=== PATIENT | male | born 1945 | race Caucasian/White ===

== ENCOUNTER 2023-11-11 13:42 | Outpatient (OUT) | payer MEDICARE, SELFPAY ==
--- NOTE | 2023-11-11 14:01 | XR_ITS ---
The [address] [address] Patient Name: DOMINICK GARCIA MRN: [id number] date: 1945 Sex: M Assigned Patient Location: [facility] Current Patient Location: [facility] Accession/Order Number: [id number] Exam Date: 11/11/2023 14:46 Report Date: 11/14/2023 08:30 At the request of: ALBERT MO Procedure: XR chest 2V EXAM: XR chest 2V HISTORY: Preop exam COMPARISON: None. TECHNIQUE: 2 views. FINDINGS: No focal infiltrates are seen. No effusions are noted. XR/XR chest 2V IMPRESSION: No acute findings. No focal infiltrate. Electronically authenticated by: Bonilla LIM Date: 11/14/2023 08:30
--- NOTE | 2023-11-11 14:01 | ECG_ITS ---
The [facility] Test Date: 2023-11-11 Pat Name: DOMINICK GARCIA Department: Room: - Gender: Male [employer]: : 1945 Requested By: ALBERT MO Order Number: [id number] Reading MD: JONATHAN CARBONE Measurements Intervals [place] Rate: 86 P: LA: QRS: -9 QRSD: 99 T: 30 QT: 372 QTc: 446 Interpretive Statements ATRIAL FIBRILLATION ABNORMAL RHYTHM ECG Compared to ECG 06/02/2018 10:40:14 Sinus bradycardia no longer present Electronically Signed On 11-11-2023 18:36:46 EDT by JONATHAN CARBONE
--- NOTE | 2023-11-11 14:35 | PM.PRESUREVA ---
History of Present Illness History of Present Illness Chief complaint: blader tumor, hx of bladder cancer Narrative: Patient presents for preadmission testing. Please see HPI from Dr. Diaz dated October 25, 2023. Review of Systems ROS Narrative Please see ROS from Dr. Diaz dated October 25, 2023. [facility] Medical History (Updated 11/11/23 @ 14:33 by Meaghan Rios NP) Claustrophobia ?F40.240 - Claustrophobia (ICD-10) Extremity edema ?R60.0 - Localized edema (ICD-10) Atrial fibrillation ?I48.91 - Unspecified atrial fibrillation (ICD-10) Back pain ?M54.9 - Dorsalgia, unspecified (ICD-10) Hip pain ?M25.559 - Pain in unspecified hip (ICD-10) Weak urine stream ?R39.12 - Poor urinary stream (ICD-10) Urinary urgency ?R39.15 - Urgency of urination (ICD-10) Urethritis ?N34.2 - Other urethritis (ICD-10) Overactive bladder ?N32.81 - Overactive bladder (ICD-10) Nocturia ?R35.1 - Nocturia (ICD-10) Incomplete bladder emptying ?R33.9 - Retention of urine, unspecified (ICD-10) Bladder cancer ?C67.9 - Malignant neoplasm of bladder, unspecified (ICD-10) Frequent urination ?R35.0 - Frequency of micturition (ICD-10) BPH with obstruction/lower urinary tract symptoms ?N40.1 - Benign prostatic hyperplasia with lower urinary tract symptoms (ICD-10) ?N13.8 - Other obstructive and reflux uropathy (ICD-10) Hyperlipidemia ?E78.5 - Hyperlipidemia, unspecified (ICD-10) Hypothyroid ?E03.9 - Hypothyroidism, unspecified (ICD-10) Bladder tumor ?D49.4 - Neoplasm of unspecified behavior of bladder (ICD-10) Surgical History (Updated 11/11/23 @ 14:24 by Meaghan Rios NP) History of colonoscopy ?Z98.890 - Other specified postprocedural states (ICD-10) History of spinal surgery ?Z98.890 - Other specified postprocedural states (ICD-10) History of ankle surgery ?Z98.890 - Other specified postprocedural states (ICD-10) H/O transurethral resection of bladder tumor (TURBT) ?Z98.890 - Other specified postprocedural states (ICD-10) ?Z86.03 - Personal history of neoplasm of uncertain behavior (ICD-10) H/O cystoscopy ?Z98.890 - Other specified postprocedural states (ICD-10) Family History (Updated 11/11/23 @ 14:24 by Meaghan Rios NP) Other Family history of diabetes mellitus Family history of hypertension Family history of lung cancer Social History (Updated 11/11/23 @ 14:18 by Meaghan Rios NP) Within the past year, how often did you have a drink containing alcohol: 4 or more times a week Within the past year, how many standard drinks containing alcohol did you have on a typical day: 1 or 2 Total score: 0 Score interpretation: A score less than 4 is consistent with normal alcohol consumption. Smoking status: Never smoker Non-prescribed substance use: denies use Highest level of school completed/degree received: high school graduate Meds Home Medications and Allergies Home Medications ?Medication ?Instructions ?Recorded ?Confirmed ?Type allopurinol 300 mg tablet 300 mg PO DAILY 11/11/23 11/11/23 History clonidine HCl 0.1 mg tablet 0.1 mg PO Q12H 11/11/23 11/11/23 History furosemide 40 mg tablet 40 mg PO DAILY 11/11/23 11/11/23 History gabapentin 300 mg capsule 300 mg PO TID 11/11/23 11/11/23 History levothyroxine 150 mcg tablet 150 mcg PO DAILY 11/11/23 11/11/23 History metoprolol succinate 50 mg 50 mg PO DAILY 11/11/23 11/11/23 History tablet,extended release 24 hr montelukast 10 mg tablet 10 mg PO DAILY 11/11/23 11/11/23 History rivaroxaban 15 mg tablet (Xarelto) 15 mg PO Q24H 11/11/23 11/11/23 History simvastatin 40 mg tablet 40 mg PO DAILY 11/11/23 11/11/23 History tamsulosin 0.4 mg capsule 0.4 mg PO DAILY 11/11/23 11/11/23 History Allergies Allergy/AdvReac Type Severity Reaction Status Date / Time lisinopril Allergy swelling Verified 11/11/23 14:08 shellfish derived Allergy Swelling Verified 11/11/23 14:12 of Lip/Tongue/Throat Exam Narrative Exam Narrative: Constitutional: Awake, alert, comfortable, well-appearing, nontoxic, interactive, vital signs as charted Head: Normocephalic, atraumatic Neck: Supple, normal appearance, normal range of motion, no meningeal signs, no lymphadenopathy Respiratory: No respiratory distress, breath sounds clear Cardiovascular: Regular rate, irregularly irregular rhythm, no murmur Abdomen: Nontender, normal bowel sounds, soft, no CVA tenderness Musculoskeletal: Normal gait, no swelling or edema Skin: No rashes or induration, no lesions, scattered bruises to extremities, only visible skin inspected Neuro: No neurological deficits, normal sensation Psychiatric: Oriented ?3, normal affect Assessment and Plan Assessment and Plan (1) Bladder tumor: Plan TURBT scheduled with Dr. Diaz November 24, 2023.
[2023-11-11 14:48] LABS: Basophils Absolute Auto 0.1 10^3/uL (0.0-0.1); Basophils Percent Auto 0.8 % (0.2-2.0); Eosinophils Absolute Auto 0.1 10^3/uL (0.0-0.7); Hematocrit 40.5 % (42.0-54.0); Hemoglobin 13.9 g/dL (14.0-18.0); Immature Granulocytes Abs Auto 0.08 10^3/uL (0.00-0.03); Immature Granulocytes Pct Auto 1.1 % (0.0-0.5); Lymphocytes Absolute Auto 1.3 10^3/uL (1.2-3.8); Lymphocytes Percent Auto 17.5 % (20.5-60.0); Mean Corpuscular HGB Conc 34.3 g/dL (29.9-35.2); Mean Corpuscular Hemoglobin 34.6 pg (25.9-34.0); Mean Corpuscular Volume 100.7 fL (80.0-94.0); Mean Platelet Volume 9.6 fL (9.5-13.5); Monocytes Absolute Auto 0.8 10^3/uL (0.3-0.8); Monocytes Percent Auto 10.7 % (1.7-12.0); Neutrophils Percent Auto 68.9 % (43.0-75.0); Platelet Count 154 10^3/uL (150-450); Red Blood Count 4.02 10^6/uL (4.70-6.10); Red Cell Distribution Width 14.8 % (11.0-15.0); White Blood Count 7.3 10^3/uL (4.0-11.0)
[2023-11-11 15:07] LABS: INR 1.14; Partial Thromboplastin Time 30.8 sec (22.3-36.2); Prothrombin Time 11.9 sec (9.0-11.6)
[2023-11-11 15:45] LABS: Anion Gap 9.5; BUN Creatinine Ratio 21.4; Calcium 8.4 mg/dL (8.5-10.1); Carbon Dioxide 30.1 mmol/L (21.0-32.0); Chloride 99 mmol/L (98-107); Estimated GFR (African America >60 (>=60); Estimated GFR (Non-African Ame >60 (>=60); Glucose 97 mg/dL (74-106); Potassium 3.6 mmol/L (3.5-5.1); Sodium 135 mmol/L (136-145)
== END 2023-11-11 13:43 | disposition home or self-care (01) ==
LOC: PST 13:46
PROVIDERS: PCP Internal Medicine; Visit Provider Urology
DX: Z01.810 Encounter for preprocedural cardiovascular examination (principal); Z01.812 Encounter for preprocedural laboratory examination; Z01.818 Encounter for other preprocedural examination; N32.89 Other specified disorders of bladder
CPT/HCPCS: 36415; 71046; 80048; 85025; 85610; 85730; 93005; G0463

== ENCOUNTER 2023-11-24 10:28 | Day surgery (SDC) | payer MEDICARE, SELFPAY ==
[2023-11-11 14:31] VITALS: BP 143/87; PULSE 71; TEMP 36.3; O2SAT 97; BMI 32.4
[2023-11-24] VITALS (16 sets, daily range): BP systolic 98–155; BP diastolic 76–106; PULSE 84–115; TEMP 35.6–36.2; O2SAT 73–98; BMI 33.0
--- OUTSIDE RECORDS SUMMARY | 2023-11-24 10:46 | XMS_ITS | CCD ---
Author Organization [facility] Care Team Providers [facility] Medical Biller Name Role Phone QUINTANILLA, FABIENNE S Admitting Unavailable QUINTANILLA, FABIENNE S Attending Unavailable NEO RAYMOND Primary Care Unavailable QUINTANILLA, FABIENNE S Consulting Unavailable QUINTANILLA, FABIENNE S Admitting Unavailable QUINTANILLA, FABIENNE S Attending Unavailable NEO RAYMOND Primary Care Unavailable QUINTANILLA, FABIENNE S Consulting Unavailable QUINTANILLA, FABIENNE S Admitting Unavailable QUINTANILLA, FABIENNE S Attending Unavailable NEO RAYMOND Primary Care Unavailable TIFFANIE SOTO Consulting Unavailable NEO RAYMOND Primary Care Unavailable MISC, DOCTOR Admitting Unavailable MISC, DOCTOR Attending Unavailable MISC, DOCTOR Consulting Unavailable MARISOL RAHMAN Consulting Unavailable NOE RAYMOND Admitting Unavailable NEO RAYMOND Attending Unavailable NEO RAYMOND Primary Care Unavailable CHIANG JR, FLAVIO L Admitting Unavailable CHIANG JR, FLAVIO L Attending Unavailable NEO RAYMOND Primary Care Unavailable CHIANG JR, FLAVIO L Consulting Unavailable CHIANG JR, FLAVIO L Admitting Unavailable CHIANG JR, FLAVIO L Attending Unavailable NEO RAYMOND Primary Care Unavailable CHIANG JR, FLAVIO L Consulting Unavailable MANUELA GIRARD Consulting Unavailable CHIANG JR, FLAVIO L Admitting Unavailable CHIANG JR, FLAVIO L Attending Unavailable NEO RAYMOND Primary Care Unavailable CHIANG JR, FLAVIO L Consulting Unavailable CHIANG JR, FLAVIO L Admitting Unavailable CHIANG JR, FLAVIO L Attending Unavailable NEO RAYMOND Primary Care Unavailable CHIANG JR, FLAVIO L Consulting Unavailable CHIANG JR, FLAVIO L Admitting Unavailable CHIANG JR, FLAVIO L Attending Unavailable NEO RAYMOND Primary Care Unavailable CHIANG JR, FLAVIO L Consulting Unavailable ALBERT PHAN Consulting Unavailable MANUELA GIRARD Consulting Unavailable Abdoulaye Iyer Unavailable Janes Jean Unavailable NEO RAYMOND Primary Care Physician Neo Raymond II Primary Care Provider Phoebe Lee PA-C Unavailable Segundo MONTEMAYOR MD, Daniel B Primary Care Provider ELSIE SHRESTHA Attending Unavailable BERENGER, CHRISTAL G Referring Unavailable RAYMOND II, NEO B Primary Care Unavailable BERENGER, CHRISTAL G Referring Unavailable RAYMOND II, NEO B Primary Care Unavailable BERENGER, CHRISTAL G Referring Unavailable RAYMOND II, NEO B Primary Care Unavailable BERENGER, CHRISTAL G Attending Unavailable PHOEBE LEE N Referring Unavailable RAYMOND II, NEO B Primary Care Unavailable ELSIE SHRESTHA Attending Unavailable BERENGER, CHRISTAL G Referring Unavailable RAYMOND II, NEO B Primary Care Unavailable ELSIE SHRESTHA L Attending Unavailable RAYMOND II, NEO B Primary Care Unavailable ELSIE SHRESTHA Referring Unavailable RAYMOND II, NEO B Primary Care Unavailable BERENGER, CHRISTAL G Admitting Unavailable BERENGER, CHRISTAL G Attending Unavailable BERENGER, CHRISTAL G Referring Unavailable RAYMOND II, NEO B Primary Care Unavailable Raymond, II Neo Primary Care Provider TYLER Vazquez Attending Provider Elsie Vazquez Unavailable Raymond, II Neo Primary Care Provider TYLER Vazquez Attending Provider Zacarias Wylie Unavailable Raymond, II Neo Primary Care Provider TYLER Vazquez Attending Provider MD Zacarias Wylie Attending Provider [phone] Raymond, II Neo Primary Care Provider MD Zacarias Wylie Attending Provider Raymond, II Neo Primary Care Provider MD Zacarias Wylie Attending Provider Raymond, II Neo Primary Care Provider MD Zacarias Wylie Attending Provider Raymond, II Neo Primary Care Provider MD Zacarias Wylie Attending Provider ELSIE SHRESTHA Referring Unavailable RAYMOND, NEO B Primary Care Unavailable WAGNER GASTELUM Attending Unavailable RAYMOND, NEO B Referring Unavailable RAYMOND, NEO B Primary Care Unavailable ZACARIAS WYLIE Referring Unavailable RAYMOND, NEO B Primary Care Unavailable NIRAV, MOHAMMED Referring Unavailable RAYMOND, NEO B Primary Care Unavailable NIRAV, MOHAMMED Referring Unavailable RAYMOND, NEO B Primary Care Unavailable ZACARIAS WYLIE Referring Unavailable RAYMOND, NEO B Primary Care Unavailable NIRAV, MOHAMMED Referring Unavailable RAYMOND, NEO B Primary Care Unavailable RAYMOND, NEO B Referring Unavailable RAYMOND, NEO B Primary Care Unavailable RAYMOND, NEO B Referring Unavailable RAYMOND, NEO B Primary Care Unavailable Inessa, Zacarias Admitting Unavailable Raymond, Neo Primary Care Unavailable Felter, Zacarias Attending Unavailable Felter, Zacarias Attending Unavailable Raymond, Neo Primary Care Unavailable Felter, Zacarias Admitting Unavailable Raymond, Neo Primary Care Unavailable Felter, Zacarias Admitting Unavailable Felter, Zacarias Attending Unavailable Felter, Zacarias Admitting Unavailable Raymond, Neo Primary Care Unavailable Felter, Zacarias Attending Unavailable Felter, Zacarias Admitting Unavailable Raymond, Neo Primary Care Unavailable Felter, Zacarias Attending Unavailable Vazquez, Elsie Admitting Unavailable Vzaquez, Elsie Attending Unavailable Raymond, Neo Primary Care Unavailable Vazquez, Elsie Admitting Unavailable Vazquez, Elsie Attending Unavailable Raymond, Neo Primary Care Unavailable RAYMOND, NEO B Attending Unavailable RUSHER, DASH S Attending Unavailable RAYMOND, NEO B Attending Unavailable RAYMOND, NEO B Attending Unavailable RUSHER, DASH S Attending Unavailable RUSHER, DASH S Attending Unavailable RAYMOND, NEO B Attending Unavailable Raymond, II Neo Primary Care Provider MD Zacarias Wylie Attending Provider Albert MO Attending Unavailable Albert MO Attending Unavailable MO, Albert Wang Attending Unavailable MO, Albert Wang Attending Unavailable Segundo MONTEMAYOR MD, Daniel B Primary Care Provider Allergies Allergy Classification Reported Allergen(s) Allergy Type Date of Onset Reaction(s) Facility (17 sources) Amino Acids; Translations: [LISINOPRIL] Drug Allergy 8 lips get swollen [facility] Rep[facility] (4 sources) Shellfish; Translations: [shellfish] Drug allergy (disorder) Unknown (qualifier value) [facility] (12 sources) Amoxicillin Drug Allergy Unknown [facility] Other (20 sources) Angiotensin Converting Enzyme (Jorge) Inhibitors; Translations: [JORGE INHIBITORS] Propensity to adverse reactions 8 Unknown, Swelling [facility] (20 sources) Ibuprofen; Translations: [ibuprofen] Drug Allergy 1 Unknown (qualifier value) [facility] [employer] Other (19 sources) Lisinopril; Translations: [lisinopril] Drug Allergy Swelling (morphologic abnormality) [facility] [employer] Other (17 sources) Naproxen Drug Allergy 4 Unknown, Unknown Reaction [facility] (17 sources) Potassium Chloride Drug Allergy 4 Unknown, Unknown Reaction [facility] (6 sources) Shellfish; Translations: [shellfish] Drug allergy Unknown (qualifier value) [facility] (11 sources) Amino Acids; Translations: [AMINO ACIDS] Drug Allergy 3 Unknown [facility] (12 sources) Iodine; Translations: [IODINE] Drug Allergy 3 Other: See Comments [facility] (14 sources) Amoxicillin; Translations: [amoxicillin] Drug Allergy 4 Unknown Reaction [facility] (1 source) Shellfish; Translations: [SHELLFISH DERIVED] Propensity to adverse reactions to food (disorder) 0 [facility] Rep[facility] (1 source) IODINATED CONTRAST MEDIA; Translations: [IODINATED CONTRAST MEDIA] Propensity to adverse reactions to drug (disorder) 2 [facility] Rep[facility] (1 source) Ibuprofen Drug Allergy 4 [facility] Repository (1 source) Lisinopril Drug Allergy 4 [facility] Rep[facility] (1 source) Naproxen Drug Allergy 4 [facility] Rep[facility] (1 source) Potassium Chloride Drug Allergy 4 [facility] Rep[facility] (1 source) Ibuprofen; Translations: [Advil] Drug Allergy [facility] Repository (1 source) Amino Acids Drug Allergy 3 Unknown [facility] Medications Current Medications Medication Drug Class(es) Dates Sig (Normalized) Sig (Original) allopurinol 300 mg oral tablet (20 sources) Xanthine Oxidase Inhibitor Start: 08-31-2010 take 1 tablet by mouth once daily allopurinol 300 mg ORAL tablet Indications: Fatigue , Dehydration Take 1 tablet by mouth once daily. 0 08/31/2010 Active Comment on above: Take 1 tablet by tasha th once daily. amLODIPine 5 mg oral tablet (20 sources) Dihydropyridine Calcium Channel Cierra Start: 05-31-2018 End: 06-07-2023 amLODIPine (NORVASC) 5 mg tablet Take 5 mg by mouth. 09/15/2018 Active Comment on above: Take 5 mg by mouth. BD ASSURE BPM-AUTO ARM CUFF (11 sources) Start: 11-02-2010 BD ASSURE BPM-AUTO ARM CUFF Indications: Hypertension Measure BP as instructed. 1 Units 0 11/02/2010 Active Comment on above: Measure BP as instru cted. cephalexin 500 mg oral capsule (19 sources) Cephalosporin Antibacterial Start: 08-18-2021 take 1 capsule by mouth twice daily Keflex 500 mg Cap 500 mg = 1 cap(s), Oral, BID, Start 1 day prior to procedure, # 10 cap(s), Refills(s) 0, Pharmacy: [address], 188, cm, 08/18/21 11:02:00 EDT, Height/Length Dosing, 113, kg, 08/18/21 11:02:00 EDT, Weight Dosing Start Date: 08/18/21 Status: Ordered Start: 02-27-2020 End: 03-29-2023 take 1 capsule by mouth every eight hours Cephalexin (Keflex) 500 mg capsule Discontinued 500 MG PO Q8H February 27, 2020 1:00am March 29, 2023 11:00am cetirizine hydrochloride 10 mg oral tablet (20 sources) Histamine-1 Receptor Antagonist Start: 10-03-2023 take 1 tablet by mouth once daily Cetirizine (Allergy Relief (Cetirizine)) 10 mg tablet Active 10 MG PO daily October 16, 2023 12:00am Start: 02-20-2020 End: 06-07-2023 take 1 tablet by mouth once daily Cetirizine (Zyrtec) 10 mg Tablet Discontinued 10 MG PO Daily February 20, 2020 1:00am June 07, 2023 9:38am Start: 12-10-2019 take 1 capsule by [facility] once daily as needed cetirizine 10 mg oral capsule 10 mg = 1 cap(s), Oral, Daily, PRN for allergy symptoms, # 40 cap(s), Refills(s) 0 Start Date: 12/10/19 Status: Ordered ciprofloxacin 500 mg oral tablet (1 source) Quinolone Antimicrobial Start: 09-17-2021 take 1 tablet by mouth twice daily Cipro 500 mg Tab 500 mg = 1 tab(s), Oral, BID, Start medication the day prior to the procedure, # 14 tab(s), Refills(s) 0, Pharmacy: [facility][id number], 188, cm, 08/18/21 11:02:00 EDT, Height/Length Dosing, 113, kg, 08/18/21 11:02:00 EDT, Weight Dosing Start Date: 09/17/21 Status: Ordered cloNIDine hydrochloride 0.1 mg oral tablet (20 sources) Central alpha-2 Adrenergic Agonist Start: 09-15-2018 take 1 mg by mouth twice daily cloNIDine 0.1 mg tab mg tab(s), Oral, BID, Refills(s) 0 Start Date: 09/15/18 Status: Ordered Start: 05-31-2018 take 0.1 mg by mouth once daily at bedtime Clonidine Hcl Active 0.1 MG PO Daily at bedtime May 31, 2018 12:00am Comment on above: Take 0.1 mg by mouth twice daily. desmopressin acetate 0.2 mg oral tablet (4 sources) Vasopressin Analog, Factor VIII Activator Start: 08-11-19 take 1 tablet by mouth once daily at bedtime DDAVP 0.2 mg oral tablet 0.2 mg = 1 tab(s), Oral, Daily, take at bedtime, # 30 tab(s), Refills(s) 6, Pharmacy: [facility] #[id number], 188, cm, 08/10/22 12:56:00 EDT, Height/Length Dosing, 113, kg, 08/10/22 12:56:00 EDT, Weight Dosing Start Date: 08/10/22 Status: Ordered dicyclomine hydrochloride 10 mg oral capsule (20 sources) Anticholinergic Start: 05-06-19 take 1 mg by mouth four times daily dicyclomine 10 mg Cap mg cap(s), Oral, QID, Refills(s) 0 Start Date: 05/05/21 Status: Ordered Start: 05-31-2018 End: 06-07-2023 take 10 mg by mouth three times daily Dicyclomine Discontinued 10 MG PO Three times daily May 31, 2018 12:00am June 07, 2023 9:29am Start: 10-14-2015 take 1 capsule by mo [facility] every twelve hours Dicyclomine HCl 10 mg 1 capsule Orally twice a day for 30 days Sep, Not-Taking/PRN Comment on above: Take 10 mg by mouth before meals and at bedtime. Diltiazem Hydrochloride ER 180 mg/24 hours oral capsule, extended release (3 sources) Start: 1 take 1 capsule by mouth once daily Diltiazem Hydrochloride ER 180 mg/24 hours oral capsule, extended release mg cap(s), Oral, Daily, Refills(s) 0 Start Date: 12/09/20 Status: Ordered furosemide 40 mg oral tablet (17 sources) Loop Diuretic Start: 4 take 1 tablet by mouth once daily Furosemide Active 1 TAB PO Daily May 02, 2023 12:00am FreeTextSi tablet Orally Once a day; Note: Source Status: Taking; Provider: Inessa Wadsworth ( ) take 1 tablet by tasha every twenty-four hours Furosemide 40 MG 1 tablet Orally Once a day Active levothyroxine sodium 0.15 mg oral tablet (20 sources) l-Thyroxine Start: 09-15-2018 take 1 tablet by mouth once daily levothyroxine 150 mcg (0.15 mg) Tab microgram tab(s), Oral, Daily, Refills(s) 0 Start Date: 09/15/18 Status: Ordered Start: 05-31-2018 take 150 ug by mouth once daily in the morning Levothyroxine Active 150 MCG PO Every morning May 31, 2018 12:00am Comment on above: Take 150 mcg by mout h daily before breakfast. lidocaine 0.05 mg/mg medicated patch (20 sources) Antiarrhythmic, Amide Local Anesthetic Start: 10-31-2023 apply 1 dose topically once daily Lidocaine Active 1 PATCH TOPICAL Daily October 31, 2023 11:06am leave on most painful area for up to 12 hrs Start: 05-05-2023 End: 10-03-2023 apply 1 dose topically once daily Lidocaine Discontinued 1 PATCH TOPICAL Daily May 05, 2023 12:12pm September 05, 2023 11:14am leave on most painful area for up to 12 hrs Start: 11-30-2022 Lidocaine 5 % 1 patch remove after 12 hours Externally Once a day for 30 Dec, Active loratadine 10 mg oral tablet (11 sources) Start: 11-02-2010 take 1 tablet by mouth once daily loratadine 10 mg ORAL tablet Take 1 tablet by mouth once daily. 0 11/02/2010 Active Comment on above: Take 1 tablet by tasha once daily. methylPREDNISolone 4 mg oral tablet (7 sources) Corticosteroid Start: 11-30-2022 Medrol 4 MG as directed Orally daily for 6 Nov, Active Start: 10-02-2021 methylPREDNISo lone Refills(s) 0 Start Date: 10/02/21 Status: Ordered montelukast 10 mg oral tablet (20 sources) Leukotriene Receptor Antagonist Start: 12-10-2019 take 1 tablet by mouth once daily montelukast (SINGULAIR) 10 mg tablet Take 10 mg by mouth once daily. 06/27/2022 Active Comment on above: Take 10 mg by mouth once daily. Tremor Video (4 sources) Start: 09-15-2018 take 1 capsule by mouth once daily Tremor Video cap(s), Oral, Daily, Refill(s) 0 Start Date: 09/15/18 Status: Ordered predniSONE 20 mg oral tablet (20 sources) Start: 10-16-2023 take 20 mg by mouth twice daily Prednisone Active 20 MG PO Twice daily 6 October 16, 2023 12:00am Start: 10-03-2023 End: 10-16-2023 take 2 tablets by mouth once daily Prednisone Discontinued 20 MG PO .COMPLEX 6 October 03, 2023 12:00am October 16, 2023 11:55am Take 2 tabs po daily x 5 days Start: 02-27-2020 End: 03-29-2023 Prednisone Discontinued 1 do se pk PO per package directions February 27, 2020 1:00am March 29, 2023 11:02am take 4 tabs for 3 days then take 3 tabs for 3 days then take 2 tabs for 3 days then take 1 tab for 3 days Start: 02-27-2020 End: 03-29-2023 Prednisone Discontinued 1 do se pk PO per package directions February 27, 2020 12:00am March 29, 2023 10:02am take 4 tabs for 3 days then take 3 tabs for 3 days then take 2 tabs for 3 days then take 1 tab for 3 days Start: 02-27-2020 Prednisone Act heladio 1 dose pk PO per package directions February 27, 2020 12:00am take 4 tabs for 3 days then take 3 tabs for 3 days then take 2 tabs for 3 days then take 1 tab for 3 days Start: 02-27-2020 Prednisone Act heladio 1 dose pk PO per package directions February 27, 2020 1:00am take 4 tabs for 3 days then take 3 tabs for 3 days then take 2 tabs for 3 days then take 1 tab for 3 days simvastatin 40 mg oral tablet (20 sources) HMG-CoA Reductase Inhibitor Start: 08-31-2010 take 1 tablet by mouth once daily at bedtime simvastatin 40 mg ORAL tablet Indications: Fatigue , Dehydration Take 1 tablet by mouth daily at bedtime. 0 08/31/2010 Active Comment on above: Take 1 tablet by tasha th daily at bedtime. solifenacin succinate 5 mg oral tablet (2 sources) Cholinergic Muscarinic Antagonist Start: 08-04-2021 take 1 tablet by mouth once daily solifenacin 5 mg Tab 5 mg = 1 tab(s), Oral, Daily, # 90 tab(s), Refills(s) 3, Pharmacy: [address], 188, cm, 05/05/21 11:03:00 EDT, Height/Length Dosing, 113, kg, 05/05/21 11:03:00 EDT, Weight Dosing Start Date: 08/04/21 Status: Ordered tamsulosin hydrochloride 0.4 mg oral capsule (20 sources) alpha-Adrenergic Cierra Start: 12-15-2021 take 1 capsule by mouth once daily Tamsulosin Active 1 CAP PO Daily May 02, 2023 12:00am FreeTextSi capsule Orally Once a day; Note: Source Status: Taking; Provider: Inessa Wadsworth ( ) Completed/Discontinued Medications Medication Drug Class(es) Dates Sig (Normalized) Sig (Original) cyclobenzaprine hydrochloride 10 mg oral tablet (17 sources) Muscle Relaxant Start: 02-27-2020 End: 03-29-2023 take 10 mg by mouth three times daily Cyclobenzaprine Discontinued 10 MG PO Three times daily 50 February 27, 2020 1:00am March 29, 2023 11:00am DULoxetine 20 mg delayed release oral capsule (20 sources) Serotonin and Norepinephrine Reuptake Inhibitor Start: 05-02-2023 End: 06-07-2023 take 20 mg by mouth twice daily Duloxetine Discontinued 20 MG PO Twice daily May 02, 2023 12:00am June 07, 2023 9:39am Start: 05-05-2021 take 1 mg by mouth once daily DULoxetine 40 mg oral delayed release capsule mg cap(s), Oral, Daily, Refills(s) 0 Start Date: 05/05/21 Status: Ordered DULoxetine HCl A ctive gabapentin 300 mg oral capsule (20 sources) Anti-epileptic Agent Start: 06-15-2023 End: 10-31-2023 take 300 mg by mouth three times daily Gabapentin Discontinued 300 MG PO Three times daily 90 June 15, 2023 11:13am September 05, 2023 11:17am Start: 05-03-2023 End: 06-07-2023 take 300 mg by mouth twice daily Gabapentin Discontinued 300 MG PO Twice daily 60 May 18, 2023 11:08am June 07, 2023 9:39am IB Tyron (24 count box) 25 mg Abraham oil/20.75 mf of I-menthol. (12 sources) IB Tyron (24 coun t box) 25 mg Grawn oil/20.75 mf of I-menthol. 2 PO 2 times a day or as needed Not-Taking/PRN IB Tyron (24 coun t box) 25 mg Abraham oil/20.75 mf of I-menthol. 2 PO 2 times a day or as needed Not-Taking IB Tyron (24 coun t box) 25 mg Grawn oil/20.75 mf of I-menthol. 2 PO 2 times a day or as needed Active L. Gasseri-B. Bifidum-B Long um ([employer]) 1.5 billion cell Capsule (17 sources) Start: 05-31-2018 End: 03-29-2023 L. Gasseri-B. Bifidum-B Long um ([employer]) 1.5 billion cell Capsule Discontinued 1 TAB PO Daily May 31, 2018 12:00am March 29, 2023 11:01am Start: 05-31-2018 End: 03-29-2023 L. Gasseri-B. Bifidum-B Long um ([employer]) 1.5 billion cell Capsule Discontinued 1 TAB PO Daily May 30, 2018 11:00pm March 29, 2023 10:01am Start: 05-31-2018 L. Gasseri-B. Bifidum-B Longum ([employer]) 1.5 billion cell Capsule Active 1 TAB PO Daily May 30, 2018 11:00pm Start: 05-31-2018 L. Gasseri-B. Bifidum-B Longum ([employer]) 1.5 billion cell Capsule Active 1 TAB PO Daily May 31, 2018 12:00am L.Rhamnosus-B.Animalis ([employer]) 3 billion cell capsule (14 sources) Start: 05-02-2023 End: 10-16-2023 take 3 capsules by mouth once daily L.Rhamnosus-B.Animalis ([employer]) 3 billion cell capsule Discontinued 1 CAP PO Daily May 02, 2023 12:00am October 16, 2023 11:57am Start: 05-02-2023 take 3 capsules by m outh once daily L.Rhamnosus-B.Animalis ([employer]) 3 billion cell capsule Active 1 CAP PO Daily May 02, 2023 12:00am Start: 05-02-2023 L.Rhamnosus-B. Animalis ([employer]) 3 billion cell capsule Active CAP PO May 02, 2023 12:00am 24 hr metoprolol succinate 25 mg extended release oral tablet (20 sources) beta-Adrenergic Cierra Start: 05-02-2023 End: 06-07-2023 take 25 mg by mouth once daily Metoprolol Succinate Discontinued 25 MG PO Daily May 02, 2023 12:00am June 07, 2023 9:39am Start: 01-17-2021 take 1 tablet by tasha th once daily metoprolol succinate ER (TOPROL XL) 50 mg 24 hr tablet TAKE 1 TABLET BY MOUTH ONCE DAILY ... (REFER TO PRESCRIPTION NOTES). 01/17/2021 Active Metoprolol Succi fidel Active Comment on above: TAKE 1 TABLET BY TASHA TH ONCE DAILY ... (REFER TO PRESCRIPTION NOTES). oxyCODONE hydrochloride 5 mg oral capsule (17 sources) Opioid Agonist Start: End: take 5-10 mg by mouth every six hours Oxycodone Discontinued 5 - 10 MG PO Q6H 60 8 February 27, 2020 March 29, 2023 11:02am [facility] - (12 sources) Flexuspine Colon Health - Orally Not-Taking/PRN Flexuspine Colon H ealth - Orally Not-Taking Flexuspine Colon H ealth - Orally Active pregabalin (20 sources) Start: 05-02-2023 End: 05-03-2023 take 1 capsule by mouth once daily Pregabalin Discontinued 1 CAP PO Daily May 02, 2023 12:00am May 03, 2023 2:14pm FreeTextSi capsule Orally Once a day; Note: Source Status: Taking; Provider: Inessa Wadsworth ( ) Start: 02-24-2022 pregabalin 50 mg Cap Refills(s) 0 Start Date: 02/24/22 Status: Ordered take 1 capsule by mo uth twice daily pregabalin (LYRICA) 100 mg capsule Take 100 mg by mouth twice daily. Active take 1 capsule by mo uth every twenty-four hours Lyrica 100 MG 1 capsule Orally Once a day Active Comment on above: Take 100 mg by mouth twice daily. rivaroxaban 2.5 mg oral tablet (20 sources) Factor Xa Inhibitor Start: 4 End: 4 take 1 tablet by mouth twice daily Rivaroxaban (Xarelto) 2.5 mg tablet Discontinued 2.5 MG PO Twice daily May 02, 2023 12:00am May 10, 2023 9:28am Start: 12-09-2020 take 1 tablet by tasha th once daily in the morning XARELTO 15 mg tablet Take 15 mg by mouth every morning. 06/30/2022 Active Xarelto Active Comment on above: Take 15 mg by mouth every morning. Triamcinolone (20 sources) Corticosteroid Start: 03-15-2018 KENALOG - 10 mg Feb, 60 mg Start: 07-22-2017 KENALOG - 10 m g Jul, 60 mg Problems Active Problems Problem Classification Problem Date Documented Da te Episodic/Chronic Abdominal hernia (12 sources) Hiatal hernia; Translations: [Diaphragmatic hernia without obstruction or gangrene] Episodic Abdominal pain (20 sources) Recurrent abdominal pain; Translations: [Unspecified abdominal pain] Onset: 2 Resolved: 2 Episodic Allergic reactions (20 sources) Allergy to food; Translations: [Allergy to other foods] 10-03-2023 Episodic Aortic; peripheral; and visceral artery aneurysms (2 sources) 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; Translations: [Thoracic aortic ectasia] Onset: 4 Chronic Cancer of bladder (20 sources) Malignant neoplasm of bladder, unspecified; Translations: [Malignant tumor of urinary bladder] Onset: 9 09-15-2018 Chronic Cancer of bladder (5 sources) History of malignant neoplasm of bladder; Translations: [Personal history of malignant neoplasm of bladder] Onset: 2 Episodic Cancer; other and unspecified primary (8 sources) History of bladder neoplasm 04-17-2020 Episodic Cardiac dysrhythmias (1 source) Atrial fibrillation Onset: 4 Chronic Congestive heart failure; nonhypertensive (1 source) Chronic diastolic (congestive) heart failure; Translations: [Chronic diastolic (congestive) heart failure] Onset: 4 Chronic Diabetes mellitus without complication (12 sources) Abnormal glucose tolerance test; Translations: [Impaired glucose tolerance (oral)] Episodic Disorders of lipid metabolism (13 sources) Hyperlipidemia, unspecified; Translations: [Hyperlipidemia] Onset: 9 Chronic Diverticulosis and diverticulitis (12 sources) Diverticular disease of colon; Translations: [Diverticulosis of intestine, part unspecified, without perforation or abscess without bleeding] Chronic Essential hypertension (14 sources) Essential (primary) hypertension; Translations: [Benign essential hypertension] Onset: 9 Chronic Genitourinary symptoms and ill-defined conditions (20 sources) Gross hematuria; Translations: [Hematuria, unspecified] Onset: 9 Episodic Gout and other crystal arthropathies (1 source) Gout, unspecified; Translations: [GOUT UNSPECIFIED] Onset: 9 Chronic Heart valve disorders (2 sources) Nonrheumatic mitral (valve) insufficiency; Translations: [Rheumatic tricuspid insufficiency] Onset: 4 Chronic Hemorrhoids (12 sources) Hemorrhoids; Translations: [Unspecified hemorrhoids] Episodic Hyperplasia of prostate (14 sources) Benign prostatic hyperplasia with lower urinary tract symptoms; Translations: [Benign prostatic hypertrophy with outflow obstruction] Onset: 9 Chronic Hypertension with complications and secondary hypertension (1 source) Hypertensive heart disease with heart failure; Translations: [Hypertensive heart disease with heart failure] Onset: 3 Chronic Immunity disorders (12 sources) Hereditary angioedema; 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 Joint disorders and dislocations; trauma-related (12 sources) Traumatic arthropathy-hip; Translations: [Traumatic arthropathy, right hip] Chronic Neoplasms of unspecified nature or uncertain behavior (5 sources) Neoplasm of uncertain behavior of bladder; Translations: [Neoplasm of bladder] Onset: 9 Episodic Occlusion or stenosis of precerebral arteries (12 sources) Occlusion and stenosis of multiple and bilateral cerebral arteries; Translations: [Occlusion and stenosis of bilateral carotid arteries] Chronic Osteoarthritis (20 sources) Primary localized osteoarthrosis of multiple sites; Translations: [Polyosteoarthritis, unspecified] Onset: 8 07-25-2017 Chronic Other acquired deformities (12 sources) Equinus contracture of the ankle; Translations: [Contracture, right ankle] Chronic Other acquired deformities (12 sources) Lumbar spondylolisthesis; Translations: [Spondylolisthesis, lumbar region] Episodic Other acquired deformities (12 sources) Spondylolisthesis L5/S1 level; Translations: [Spondylolisthesis, lumbosacral region] Episodic Other acquired deformities (12 sources) Spondylolysis; Translations: [Spondylolysis, lumbar region] Episodic Other acquired deformities (4 sources) Spondylolisthesis, lumbosacral region Onset: 2 Resolved: 2 Episodic Other and ill-defined heart disease (1 source) Cardiomegaly; Translations: [Cardiomegaly] Onset: 4 Chronic Other and unspecified benign neoplasm (8 sources) Benign neoplasm of bladder 09-15-2018 Episodic Other circulatory disease (12 sources) H/O: atrial fibrillation; Translations: [Personal history of other diseases of the circulatory system] Episodic Other circulatory disease (12 sources) Elevated blood pressure; Translations: [Elevated blood-pressure reading, without diagnosis of hypertension] Episodic Other connective tissue disease (12 sources) History of lumbar fusion; Translations: [Arthrodesis status] Onset: 3 Episodic Other connective tissue disease (6 sources) Arthrodesis status; Translations: [Arthrodesis status] Onset: 3 10-06-2023 Episodic Other connective tissue disease (2 sources) Other bursal cyst, other site Episodic Other diseases of bladder and urethra (1 source) Bladder disorder, unspecified; Translations: [BLADDER DISORDER UNSPECIFIED] Onset: 9 Chronic Other diseases of bladder and urethra (12 sources) Mass of urinary bladder; Translations: [Other specified disorders of bladder] Chronic Other diseases of bladder and urethra (1 source) Detrusor overactivity; Translations: [Overactive bladder] Onset: 2 Chronic Other diseases of bladder and urethra (8 sources) Overactive bladder 02-03-2021 Chronic Other diseases of kidney and ureters (2 sources) Urinary tract obstruction; Translations: [Other obstructive and reflux uropathy] Onset: 3 Episodic Other diseases of veins and lymphatics (12 sources) Peripheral venous insufficiency; Translations: [Venous insufficiency (chronic) (peripheral)] Episodic Other gastrointestinal disorders (1 source) Irritable bowel syndrome without diarrhea; Translations: [IRRITABLE BOWEL SYND W/O DIARRHEA] Onset: 9 Chronic Other gastrointestinal disorders (20 sources) Irritable bowel syndrome characterized by constipation; Translations: [Irritable bowel syndrome with constipation] Chronic Other gastrointestinal disorders (12 sources) Irritable bowel syndrome with diarrhea; Translations: [Irritable bowel syndrome with diarrhea] Chronic Other gastrointestinal disorders (12 sources) Irritable bowel syndrome; Translations: [Irritable bowel syndrome without diarrhea] Chronic Other gastrointestinal disorders (1 source) Irritable bowel syndrome with constipation Onset: 2 Resolved: 2 Chronic Other gastrointestinal disorders (12 sources) Difficulty swallowing; Translations: [Dysphagia, unspecified] Episodic Other nervous system disorders (20 sources) Chronic pain; Translations: [Other chronic pain] 05-02-2023 Chronic Other nervous system disorders (20 sources) Other chronic pain; Translations: [Other chronic pain] Onset: 3 Chronic Other nervous system disorders (6 sources) Neuropathy; Translations: [Polyneuropathy, unspecified] Chronic Other nervous system disorders (2 sources) Polyneuropathy, unspecified Chronic Other nervous system disorders (4 sources) Right-sided piriformis syndrome; Translations: [Lesion of sciatic nerve, right lower limb] Chronic Other nervous system disorders (1 source) Lesion of sciatic nerve, right lower limb Chronic Other nervous system disorders (1 source) Other chronic pain; Translations: [Other chronic pain] Onset: 4 Chronic Other nervous system disorders (4 sources) Piriformis syndrome; Translations: [Lesion of sciatic nerve, left lower limb] 10-06-2023 Chronic Other nervous system disorders (5 sources) Lesion of sciatic nerve, left lower limb; Translations: [Lesion of sciatic nerve] 10-06-2023 Chronic Other nervous system disorders (4 sources) Abnormal gait; Translations: [Unspecified abnormalities of gait and mobility] Episodic Other nutritional; endocrine; and metabolic disorders (20 sources) Body mass index 30+ - obesity; Translations: [Body mass index (BMI) 33.0-33.9, adult] 10-02-2020 Chronic Other nutritional; endocrine; and metabolic disorders (12 sources) Obese class I; Translations: [Body mass index (BMI) 31.0-31.9, adult] Chronic Other nutritional; endocrine; and metabolic disorders (12 sources) Overweight; Translations: [Overweight] Episodic Other nutritional; endocrine; and metabolic disorders (12 sources) Hyperuricemia; Translations: [Hyperuricemia without signs of inflammatory arthritis and tophaceous disease] Episodic Other upper respiratory disease (12 sources) Allergic rhinitis; Translations: [Other allergic rhinitis] Chronic Other upper respiratory infections (12 sources) Sinusitis; Translations: [Chronic sinusitis, unspecified] Chronic Peripheral and visceral atherosclerosis (12 sources) Peripheral vascular disease; Translations: [Peripheral vascular disease, unspecified] Chronic Pulmonary heart disease (1 source) Pulmonary hypertension, unspecified; Translations: [Pulmonary hypertension, unspecified] Onset: 4 Chronic Residual codes; unclassified (1 source) Procedure and treatment not carried out for other reasons; Translations: [PROC AND TX NOT CARRIED OUT OTH REASONS] Onset: 9 Episodic Spondylosis; intervertebral disc disorders; other back problems (20 sources) Spondylosis without myelopathy or radiculopathy, lumbar region; Translations: [Sacroiliitis, not elsewhere classified] Onset: 8 Chronic Spondylosis; intervertebral disc disorders; other back problems (20 sources) Low back pain; Translations: [Muscle spasm of back] Onset: 8 Episodic Superficial injury; contusion (17 sources) Contusion of lower back; Translations: [Contusion of lower back and pelvis, initial encounter] 04-28-2020 Episodic Thyroid disorders (14 sources) Hypothyroidism, unspecified; Translations: [Thyrotoxicosis, unspecified without thyrotoxic crisis or storm] Onset: 9 Chronic Urinary tract infections (1 source) Other chronic cystitis without hematuria; Translations: [OTH CHRONIC CYSTITIS W/O HEMATURIA] Onset: 9 Chronic Urinary tract infections (8 sources) Urethritis 12-10-2019 Episodic Past or Other Problems Problem Classification Problem Date Documented Da te Episodic/Chronic Other aftercare (1 source) Other fdc (current) drug therapy; Translations: [OTH CHARGING PLUG PLACER CURRENT DRUG THERAPY] Onset: 06-20-2018 Episodic Other connective tissue disease (1 source) Other specified disorders of muscle; Translations: [OTHER SPECIFIED DISORDERS OF MUSCLE] Onset: 11-24-2017 Episodic Other connective tissue disease (1 source) Muscle wasting and atrophy, not elsewhere classified, unspecified site; Translations: [MUSCLE WASTING ATROPHY NEC UNS SITE] Onset: 11-24-2017 Episodic Other connective tissue disease (11 sources) Lateral epicondylitis; Translations: [Lateral epicondylitis, unspecified elbow] Onset: 03-02-2005 03-02-2005 Episodic Other connective tissue disease (11 sources) Pain in limb; Translations: [Pain in unspecified limb] Onset: 03-02-2005 03-02-2005 Episodic Other connective tissue disease (11 sources) Impingement syndrome of left shoulder region; Translations: [Impingement syndrome of left shoulder] Onset: 05-10-2017 05-10-2017 Episodic Other connective tissue disease (1 source) Other specified soft tissue disorders; Translations: [Other specified soft tissue disorders] Onset: 02-07-2023 Episodic Other gastrointestinal disorders (1 source) Dysphagia, unspecified; Translations: [DYSPHAGIA UNSPECIFIED] Onset: 12-09-2017 Episodic Other nervous system disorders (1 source) Unspecified abnormalities of gait and mobility; Translations: [Abnormality of gait] Onset: 07-13-2022 Episodic Other nervous system disorders (1 source) Unsteadiness on feet; Translations: [Unsteadiness on feet] Onset: 01-21-2023 Episodic Other non-traumatic joint disorders (1 source) Pain in left hip Onset: 02-24-2021 Resolved: 02-24-2021 Episodic Other upper respiratory disease (4 sources) Pain in throat; Translations: [PAIN IN THROAT] Onset: 12-08-2017 Episodic Other upper respiratory infections (1 source) Acute maxillary sinusitis, unspecified; Translations: [ACUTE MAXILLARY SINUSITIS UNS] Onset: 12-09-2017 Episodic Unclassified (1 source) Other low back pain M54.59 Unclassified (1 source) Other low back pain; Translations: [Other low back pain] Results Test Name Value Interpretation Reference Range Facility Ambulatory Visit Summaryon 0 10-25-2023 Ambulatory Visit Summary Ambulatory Visit Summary DOMINICK CHIANG :1945 Visit Date:10/25/2023 Ambulatory Visit Instructions Your Diagnosis History of bladder cancer Bladder tumor BPH with urinary obstruction Nocturia Your Care Team Attending Physician - CHEPE ESPINOSA, Albert Wang Primary Care Physician - SEGUNDO ESPINOSA, NEO Echeverria This Is Your Medications List tamsulosin (Flomax 0.4 mg Cap) Contact prescribing physician if questions or concerns allopurinol (allopurinol 300 mg Tab) amlodipine (amLODIPine 5 mg Tab) clonidine (cloNIDine 0.1 mg tab) desmopressin (DDAVP 0.2 mg oral tablet) levothyroxine (levothyroxine 150 mcg (0.15 mg) Tab) metoprolol (metoprolol 50 mg ER Tab) rivaroxaban (Xarelto 15 mg oral tablet) simvastatin (simvastatin 40 mg Tab) [Image Removed: STOP]Stop taking these medications ciprofloxacin (Cipro 500 mg Tab) Procedures Performed Flexible cystoscopy (10/25/2023), Cystoscopy (08/10/2022), Injection of therapeutic substance into bladder wall (10/08/2021), Injection of therapeutic substance into bladder wall (03/05/2021), Cystoscopy (10/02/2020), Transurethral insertion of prostatic urethral lift implant (06/19/2020), Cystoscopy (05/26/2020), Cystoscopy (12/10/2019), Cystoscopy (04/23/2019), Cystoscopy (12/25/2018), TURBT - Transurethral resection of bladder tumor (08/30/2018). Discharge Vitals Heart Rate (Peripheral) 86 Respiratory Rate 16 Blood Pressure 138/94 Height 188 cm Height 74 in Weight 113 kg Weight 248.6 lb BMI 31.97 What to do next You Need to Schedule the Following Appointments Follow Up with CHEPE ESPINOSA, CROAL Beaver When: Where: [facility] [address], [place] [address] [phone] Medications What How Much When Why Instructions Unchanged tamsulosin (Flomax 0.4 mg Cap) 1 Capsules By Mouth Every day Nocturia Incomplete bladder emptying History of bladder cancer BPH with urinary obstruction Unchanged allopurinol (allopurinol 300 mg Tab) By Mouth Every day Contact prescribing physician if questions or concerns Unchanged amlodipine (amLODIPine 5 mg Tab) By Mouth Every day Contact prescribing physician if questions or concerns Unchanged clonidine (cloNIDine 0.1 mg tab) By Mouth 2 times a day Contact prescribing physician if questions or concerns Unchanged desmopressin (DDAVP 0.2 mg oral tablet) 1 Tablets By Mouth Every day take at bedtime Contact prescribing physician if questions or concerns Unchanged levothyroxine (levothyroxine 150 mcg (0.15 mg) Tab) By Mouth Every day Contact prescribing physician if questions or concerns Unchanged metoprolol (metoprolol 50 mg ER Tab) By Mouth Every day Contact prescribing physician if questions or concerns Unchanged rivaroxaban (Xarelto 15 mg oral tablet) By Mouth Once a day (in the evening) Contact prescribing physician if questions or concerns Unchanged simvastatin (simvastatin 40 mg Tab) By Mouth Once a day (at bedtime) Contact prescribing physician if questions or concerns What How Much When Comments Stop Taking ciprofloxacin (Cipro 500 mg Tab) 1 Tablets By Mouth As Directed Patient to take 1 tab the day before procedure and the 2nd tab the day of procedure once completed Medications and Immunizations Administered Given lidocaine Top 2% Gel w/Appl 11 mL, 11 mL, Topical. For: Allergies Advil (Unknown) lisinopril (Swelling) shellfish (Unknown) Problems Ongoing - Any problem that you are currently receiving treatment for. 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 Please share your experience with us by completing your survey. We appreciate your feedback and thank you for choosing us for your care. Education Materials Transurethral Resection of Bladder Tumor Transurethral resection of a bladder tumor is the removal (resection) of cancerous tissue (tumor) from the inside wall of the bladder. The bladder is the organ that holds urine. The tumor is removed through the tube that carries urine out of the body (urethra). In a transurethral resection, a thin telescope with a light, a tiny camera, and an electric cutting edge (resectoscope) is passed through the urethra. In men, the opening of the urethra is at the end of the penis. In women, it is just above the opening of the vagina. Tell a health care provider about: ? Any allergies you have. ? All medicines you are taking, including vitamins, herbs, eye drops, creams, and [id number] medicines. ? Any problems you or family members have had with anesthetic medicines. ? Any bleeding problems you have. (more content not included)... Normal [facility] Urology Office/Clinic Noteon 10-25-2023 Urology Office/Clinic Note Urology Office/Clinic Note Chief Complaint Cysto HPI Staff Pt here for 14 mos cysto, FISH/cytology due to hx of bladder cancer. Abx taken. History of Present Illness Tests reviewed: reviewed FISH/cytology I have reviewed the previous health record information and history for this patient from Dr. Mo. I have reviewed and verified the staff HPI to be accurate for this encounter. Review of Systems PHQ Score Initial Depression Screen Score: 0 SCORE ROS - Provider Constitutional: denies weight loss, denies hot flashes. Eyes: denies eye problems. Gastrointestinal: denies nausea, denies vomiting. Cardiovascular: denies chest pain or angina. Integumentary: no dryness Musculoskeletal: denies musculoskeletal symptoms. ENMT: denies otolaryngeal symptoms. Respiratory: no shortness of breath. Heme/Lymph: denies easy bleeding tendency, denies easy bruising tendency. Psychiatric: no confusion, no anxiety. Genitourinary: See HPI. Physical Exam Vitals & Measurements HR: 86(Peripheral) RR: 16 BP: 138/94 HT: 74 in HT: 188 cm WT: 113 kg WT: 248.6 lb BMI: 31.97 General Appearance: alert, no distress, well nourished, well developed male. Procedure Operative Information Anesthesia Type: Local Procedure: Local Cystoscopy Complications: None Surgical risks, benefits, details of the procedure have been explained to the patient. Full informed consent has been obtained. Intraoperative Information Prepped: Patient is brought back to the endoscopy suite. Patient is placed in supine position. Patient prepped in the usual fashion with Betadine solution. 2% Xylocaine Jelly is placed per Urethra. After waiting several minutes, the Cystoscope is introduced. The Urethra is: Normal The Prostatic Urethra is: Trilobar obstruction The Bladder: 3 papillary tumors (2cm total) at anterior right wall appearing as transitional cell type, Trabeculated: Severe (3), multiple diverticuli (some are very deep) The Ureteral orifices: Show efflux of clear urine Specimens Removed: Voided specimen sent for FISH and Cytology test Removal: Cystoscope is removed. The patient tolerated it well. Postoperative Information Patient is discharged home with antibiotic coverage. Follow up arranged. Assessment/Plan 1. 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 [1] Cysto w/ Botox 09/2021 - No b.t. CT scan 09/29/21 - Neg. Last Cysto/FISH/Cytol 08/10/22 - All neg. Pt had IO cysto to check for bladder tumor recurrence without complications today. Pt took prophylactic abx prior to procedure. Will send voided specimen for FISH/cytol and call pt if positive. Cysto today was positive for recurrence. -Will schedule Cysto with TURBT. The procedure risks, benefits, details, and treatment alternatives have been discussed with the patient. These include bleeding -- sometimes to the point of hemorrhaging, infection, risk of bladder perforation, recurrence of bladder tumor in 60-70% of patients, need for indwelling catheter for a variable amount of time, as well as the rare risk of needing an open operation to repair the bladder, among others. Additional therapy as well as follow-up bladder evaluation will most likely be required. Full informed consent has been obtained. Will order General anesthesia. 2. Bladder tumor (D49.4: Neoplasm of unspecified behavior of bladder) See procedure section and #1. 3. BPH with urinary obstruction (N40.1: Benign prostatic hyperplasia with lower urinary tract symptoms) S/p UroLift 05/2020. PVR (cc): 04/02/22 - 308 Taking Tamsulosin 0.4mg qd. Cont wo changes. 4. Nocturia (R35.1: Nocturia) S/p Botox 100u 02/2021 and 200u 09/2021. Failed Oxybutynin, Levsin, VESIcare, and Myrbetriq due to no sx improvement. Took DDAVP but stopped due to increased frequency and difficulty voiding while on med. Previously reported back pain which was attributed to causing nocturia. -Empty fully prior to bedtime -Limit fluids after 6pm Follow-up With When Contact Information CHEPE ESPINOSA, Albert Wang, URL [facility] [address], [place] [address] [phone] Additional Instructions: sched TURBT Patient Education Transurethral Resection of Bladder Tumor IChayo, personally scribed for Dr. Mo on 10/25/2023 14:36:24. . Documentation recorded by the scribeChayo, accurately reflects the services(s) I performed and decisions made by me. Authenticated by Dr. Mo on 10/25/2023 14:40:00. 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 Normal [facility] Comment on above: Result Comment: Elec tronically Signed By: CHEPE ESPINOSA, Albert Wang\.br\Date and Time Signed: 10/25/23 14:40 EDT\.br\Electronically Co-Signed By: Chayo Raymond\.br\Date and Time Co-Signed: 10/25/23 14:37 EDT Reminderson 10-06-2023 Reminders Reminders - From: Evelia Solares To: [facility] - Recalls Mo; Sent: 10/06/2023 12:01:51 EDT Show up: 08/21/2024 12:01:00 EDT Subject: Cysto/FISH/cytol Due Date/Time: 09/17/2024 12:01:00 EDT Reminder/Recall Patient is due in Oct 2024 for 1 year cysto/fish/cytol, bt ck Normal [facility] BASIC METABOLIC PANLon 06-16 Anion gap [Moles/Vol] 5 mmol/L Normal 5-15 [facility] Comment on above: Performed By: #### B MP #### [facility] ([id number]) [address], [address] [place] [address] Calcium [Mass/Vol] 8.8 mg/dL Normal 8.5-10.5 [facility] Comment on above: Performed By: #### B MP #### [facility] ([id number]) [address], [address] [place] [address] Chloride [Moles/Vol] 100 mmol/L Normal 98-109 [facility] Comment on above: Performed By: #### B MP #### [facility] ([id number]) [address], [address] [place] [address] CO2 [Moles/Vol] 32 mmol/L Normal 22-32 [facility] Comment on above: Performed By: #### B MP #### [facility] ([id number]) [address], [address] [place] [address] Creatinine [Mass/Vol] 0.86 mg/dL Normal 0.60-1.30 [facility] Comment on above: Result Comment: METH OD TRACEABLE TO IDMS STANDARD Performed By: #### B MP #### [facility] ([id number]) [address], [facility] [address] [place] [address] GFR/1.73 sq M.predicted among non-blacks MDRD (S/P/Bld) [Vol rate/Area] 89 mL/min/{1.73_m2} Normal >59 [facility] Comment on above: Result Comment: Reported eGFR is based on the CKD-EPI 2020 equation that does not use a race coefficient. Performed By: #### B MP #### [facility] ([id number]) [address], [address] [place] [address] Glucose [Mass/Vol] 87 mg/dL Normal 65-99 [facility] Comment on above: Performed By: #### B MP #### [facility] ([id number]) [address] [place] [id number] Potassium [Moles/Vol] 3.8 mmol/L Normal 3.5-5.0 [facility] Comment on above: Performed By: #### B MP #### [facility] ([id number]) [address], [address] [place] [address] Sodium [Moles/Vol] 137 mmol/L Normal 134-146 [facility] Comment on above: Performed By: #### B MP #### [facility] ([id number]) [address], [address] [place] [address] Urea nitrogen [Mass/Vol] 23 mg/dL Normal 5-27 [facility] Comment on above: Performed By: #### B MP #### [facility] ([id number]) [address], [address] [place] [address] CT CTA CHESTon 02-27-[address] CTA CHEST CLINICAL INFORMATION: Pulmonary hypertension. Chest pain.. COMPARISON: None. PROCEDURE: CT angiography of the chest was performed with IV contrast. Sagittal and coronal reformatted images with 3-D Maximum intensity projection reconstructions constructed under concurrent physician supervision on a independent workstation. Automated exposure control was utilized. 3-D reformatted images confirm the source data findings. All CT scans at this facility dose modulation, iterative reconstruction, and/or weight based dosing when appropriate to reduce radiation dose to as low as reasonably achievable. FINDINGS: The heart is normal in size. Trace pericardial effusion anteriorly measuring 6 mm in maximum thickness. Atherosclerotic calcification the coronary arteries. Aortic measurements as follows: Aorta at the sinuses: 3.4 x 4.3 cm. Sinotubular junction: 3.7 x 4.0 cm. Mid ascending thoracic aorta: 3.4 x 3.8 cm. Proximal aortic arch: 3.5 x 3.8 cm. Mid aortic arch: 3.0 x 3.3 cm. Proximal descending thoracic aorta: 2.7 x 3.0 cm. Mid descending thoracic aorta: 2.7 x 2.8 cm. Main pulmonary artery is dilated up to 3.8 cm with the right main pulmonary artery measuring 3.5 cm and the left main pulmonary artery measuring 2.8 cm. No evidence pulmonary embolus. No mediastinal or hilar adenopathy. The trachea and mainstem bronchi are patent. No pleural effusion or pneumothorax. Atelectasis at the posterior lower lobes. No suspicious nodules or masses. No acute osseous abnormalities. IMPRESSION: 1. No acute findings on CTA chest. 2. Dilatation of the main pulmonary artery measuring up to 3.8 cm which can be seen with pulmonary hypertension. 3. Trace pericardial effusion anteriorly measuring up to 6 mm in maximum diameter. 4. Mild dilatation of the thoracic aorta at the sinuses measuring up to 4.3 cm. Detailed aortic measurements as above. Finalized by Taurus Sullivan MD on 02/27/2023 7:08 PM Normal [facility] ISTAT XRay CREon 01-06-2023 ISTAT GFR > 60.0 Normal [facility] Comment on above: Result Comment: PERF ORMED BY: [place] [address] PATHOLOGIST CUSTODIAL SUPERVISOR RAZA MANRIQUE M.D. Performed By: #### I SCRE #### [address] MR lumbar spine wo/w conon 1 03-08-2022 MR lumbar spine wo/w con [facility] Main [place] [address] [place] [address] MRI Report Signed Patient: Dominick Chiang MR#: [id number] 878 : 1945 Acct:[id number] Age/Sex: 77 / M ADM Date: 01/06/23 Loc: MR Room: Type: [facility] Attending Dr: Elsie SCOTT Copies to: TYLER Field Ordering Provider: TYLER Field Date of Service: 01/06/23 MR/MR lumbar spine wo/w con: Lumbar radicular pain MR lumbar spine wo/w con 01/06/2023 2:50 PM SIGNS AND SYMPTOMS: Chronic low back pain and left hip pain, history of previous lumbar surgery. PROTOCOL: Multiplanar multisequence MR images of the lumbar spine were obtained with and without IV contrast CONTRAST: 20 mL of intravenous ProHance COMPARISON: Radiographs from the same date and MRI of the lumbar spine from 11/10/2018 FINDINGS: There is posterior fusion hardware at L5-S1 similar anterolisthesis of L5 upon S1. There is mild disc height loss at L1-L2 with moderate disc height loss at L2-L3 and L3-L4. There is Modic type I endplate edema at L3-L4 with Schmorl's information the inferior endplate of L3. There is preservation of vertebral body heights. The conus terminates at the superior endplate of the L1 vertebral body level. No epidural or paraspinous fluid collection is appreciated. There is no abnormal postcontrast enhancement. At T12-L1: There is a normal disc, central canal, and neural foramen. At L1-L2: There is a normal disc, central canal, and neural foramen. At L2-L3: There is a broad-based disc bulge with facet hypertrophy. There is mild spinal canal stenosis with mild bilateral neural foraminal narrowing. At L3-L4: There is a broad-based disc bulge with endplate osteophyte formation and facet hypertrophy. There is mild spinal canal stenosis with mild to moderate left neural foraminal narr owing. At L4-L5: There is a broad-based disc bulge with facet hypertrophy contributing to mild right and moderate left neural foraminal narrowing. There is a 5 mm internal synovial cyst on the left contributing to mild narrowing of the spinal canal. At L5-S1: There is posterior fusion hardware with endplate osteophyte formation and facet hypertrophy. There is moderate to severe left and severe right neural foraminal narrowing with mass effect on the exiting L5 nerve roots bilaterally. This is unchanged. No significant spinal canal narrowing. MR/MR lumbar spine wo/w con IMPRESSION: At L4-L5: There is a broad-based disc bulge with facet hypertrophy contributing to mild right and moderate left neural foraminal narrowing. There is a 5 mm internal synovial cyst on the left contributing to mild narrowing of the spinal canal. This is slightly worse when compared to the prior exam. At L5-S1: There is posterior fusion hardware with endplate osteophyte formation and facet hypertrophy. There is moderate to severe left and severe right neural foraminal narrowing with mass effect on the exiting L5 nerve roots bilaterally. This is unchanged. No significant spinal canal narrowing. Neural foraminal narrowing and mass effect on the exiting L5 nerve roots is unchanged. Lesser degrees of degenerative changes are noted at L2-L3 and L3-L4. There is no abnormal postcontrast enhancement. Impression dictated by: Gregg Milan M.D.01/06/2023 4:54 PM Dictation Location: [place] [address] Transcribed By: [facility] 01/06/231653 Dictated By: Gregg Milan II, MD 01/06/23 164 Signed By: 01/06/231653 Normal [facility] MR lumbar spine wo/w con [facility] [employer] Other MR lumbar spine wo/w con [facility] [employer] Other MR lumbar spine wo/w con [address] [facility] [employer] Other MR lumbar spine wo/[place] [address] [employer] Other MR lumbar spine wo/w con MRI Report [employer] Other MR lumbar spine wo/w con Signed [employer] Other MR lumbar spine wo/w con Patient: Dominick Chiang MR#: [id number] [employer] Other MR lumbar spine wo/w con 878 [employer] Other MR lumbar spine wo/w con : 1945 Acct:[id number] [employer] Other MR lumbar spine wo/w con Age/Sex: 77 / M ADM Date: 01/06/23 [employer] Other MR lumbar spine wo/w con Loc: MR Room: Type: [facility] [employer] Other MR lumbar spine wo/w con Attending Dr: Elsie Vazquez NP-C [employer] Other MR lumbar spine wo/w con Copies to: Elsie Vazquez NP-C [employer] Other MR lumbar spine wo/w con Ordering Provider: Elsie Vazquez NP-C [employer] Other MR lumbar spine wo/w con Date of Service: 01/06/23 [employer] Other MR lumbar spine wo/w con MR/MR lumbar spine wo/w con: Lumbar radicular pain [employer] Other MR lumbar spine wo/w con MR lumbar spine wo/w con 01/06/2023 2:50 PM [employer] Other MR lumbar spine wo/w con SIGNS AND SYMPTOMS: Chronic low back pain and left hip pain, history of previous lumbar surgery. [employer] Other MR lumbar spine wo/w con PROTOCOL: Multiplanar multisequence MR images of the lumbar spine were obtained with and without IV [employer] Other MR lumbar spine wo/w con contrast [employer] Other MR lumbar spine wo/w con CONTRAST: 20 mL of intravenous ProHance [employer] Other MR lumbar spine wo/w con COMPARISON: Radiographs from the same date and MRI of the lumbar spine from 11/10/2018 [employer] Other MR lumbar spine wo/w con FINDINGS: There is posterior fusion hardware at L5-S1 similar anterolisthesis of L5 upon S1. There [employer] Other MR lumbar spine wo/w con is mild disc height loss at L1-L2 with moderate disc height loss at L2-L3 and L3-L4. There is Modic [employer] Other MR lumbar spine wo/w con type I endplate edema at L3-L4 with Schmorl's information the inferior endplate of L3. There is [employer] Other MR lumbar spine wo/w con preservation of vertebral body heights. The conus terminates at the superior endplate of the L1 [employer] Other MR lumbar spine wo/w con vertebral body level. No epidural or paraspinous fluid collection is appreciated. There is no [employer] Other MR lumbar spine wo/w con abnormal postcontrast enhancement. [employer] Other MR lumbar spine wo/w con At T12-L1: There is a normal disc, central canal, and neural foramen. [employer] Other MR lumbar spine wo/w con At L1-L2: There is a normal disc, central canal, and neural foramen. [employer] Other MR lumbar spine wo/w con At L2-L3: There is a broad-based disc bulge with facet hypertrophy. There is mild spinal canal [employer] Other MR lumbar spine wo/w con stenosis with mild bilateral neural foraminal narrowing. [employer] Other MR lumbar spine wo/w con At L3-L4: There is a broad-based disc bulge with endplate osteophyte formation and facet [employer] Other MR lumbar spine wo/w con hypertrophy. There is mild spinal canal stenosis with mild to moderate left neural foraminal narr [employer] Other MR lumbar spine wo/w con owing. [employer] Other MR lumbar spine wo/w con At L4-L5: There is a broad-based disc bulge with facet hypertrophy contributing to mild right and [employer] Other MR lumbar spine wo/w con moderate left neural foraminal narrowing. There is a 5 mm internal synovial cyst on the left [employer] Other MR lumbar spine wo/w con contributing to mild narrowing of the spinal canal. [employer] Other MR lumbar spine wo/w con At L5-S1: There is posterior fusion hardware with endplate osteophyte formation and facet [employer] Other MR lumbar spine wo/w con hypertrophy. There is moderate to severe left and severe right neural foraminal narrowing with mass [employer] Other MR lumbar spine wo/w con effect on the exiting L5 nerve roots bilaterally. This is unchanged. No significant spinal canal [employer] Other MR lumbar spine wo/w con narrowing. [employer] Other MR lumbar spine wo/w con MR/MR lumbar spine wo/w con [employer] Other MR lumbar spine wo/w con IMPRESSION: [employer] Other MR lumbar spine wo/w con contributing to mild narrowing of the spinal canal. This is slightly worse when compared to the [facility] Other MR lumbar spine wo/w con prior exam. [employer] Other MR lumbar spine wo/w con narrowing. Neural foraminal narrowing and mass effect on the exiting L5 nerve roots is unchanged. [employer] Other MR lumbar spine wo/w con Lesser degrees of degenerative changes are noted at L2-L3 and L3-L4. [employer] Other MR lumbar spine wo/w con There is no abnormal postcontrast enhancement. [employer] Other MR lumbar spine wo/w con Impression dictated by: Gregg Milan M.D.01/06/2023 4:54 PM [employer] Other MR lumbar spine wo/w con Dictation Location: [place] [address] [employer] Other MR lumbar spine wo/w con Transcribed By: PWS 01/06/23 1654 [employer] Other MR lumbar spine wo/w con Dictated By: Gregg Milan II, MD 01/06/23 9941 [employer] Other MR lumbar spine wo/w con Signed By: [employer] Other MR lumbar spine wo/w con 01/06/23 8706 [employer] Other No Panel InformationOrdered By: Elsie Vazquez on 01-06-2023 Bedside Estimated GFR (eGFR) > 60.0 [facility] Whole blood creatinine measu rementOrdered By: Elsie Vazquez on 01-06-2023 Creatinine [Mass/Vol] 0.7 mg/dL Normal 0.6-1.3 [facility] Comment on above: ER/ESD physician is notified/shown all ISTAT results.Critical values may be confirmed by laboratory testing ifdeemed necessary by ER attending doctor. Result Comment: ER/E SD physician is notified/shown all ISTAT results. Critical values may be confirmed by laboratory testing if deemed necessary by ER attending doctor. Performed By: #### I SCRE #### [facility] [address] [place] [address] [place] XR lumbar spine 6V w bending on 11-30-2022 XR lumbar spine 6V w bending [facility] [place] [address] [place] [address] XRay Report Signed Patient: Dominick Chiang MR#: [id number] 878 : 1945 Acct:[id number] Age/Sex: 77 / M ADM Date: 11/30/22 Loc: XD Room: Type: [facility] Attending Dr: Elsie SCOTT Copies to: TYLER Field Ordering Provider: TYLER Field Date of Service: 11/30/22 XR/XR lumbar spine 6V w bending: Lumbar radicular pain LUMBAR SPINE - 6 views CLINICAL HISTORY: Low back pain radiates to left leg for 2 years. COMPARISON: Lumbar spine 07/21/2020 FINDINGS: Posterior hardware fixation L5-S1 without evidence of hardware complication. Vertebral body heights demonstrate mild compression deformities of L1 and L2 which have progressed since the 2020 study. No retropulsion into the spinal canal is seen. Moderate disc space narrowing L2-L3 and L3-L4. No pathological motion is seen. Restricted right-sided sidebending. XR/XR lumbar spine 6V w bending IMPRESSION: NO EVIDENCE OF HARDWARE COMPLICATION. MILD COMPRESSION DEFORMITIES OF THE L1 AND L2 VERTEBRAL BODIES NEW SINCE 2020 WITHOUT RETROPULSION INTO THE SPINAL CANAL. Impression dictated by: Alan Garcia Jr., [employer]11/30/2022 3:58 PM Dictation Location: [place] [address] Transcribed By: [facility] 11/30/22 1558 Dictated By: Alan Garcia Jr, DO 11/30/22 1556 Signed By: 11/30/22 1558 Normal [facility] XR lumbar spine 6V w bending [facility] [employer] Other XR lumbar spine 6V w bending [facility] [employer] Other XR lumbar spine 6V w bending [address] [place] [address] [employer] Other XR lumbar spine 6V [place] [address] [employer] Other XR lumbar spine 6V w bending XRay Report [employer] Other XR lumbar spine 6V w bending Signed [employer] Other XR lumbar spine 6V w bending Patient: Dominick Chiang MR#: [id number] [employer] Other XR lumbar spine 6V w bending 878 [employer] Other XR lumbar spine 6V w bending : 1945 Acct:[id number] [employer] Other XR lumbar spine 6V w bending Age/Sex: 77 / M ADM Date: 11/30/22 [employer] Other XR lumbar spine 6V w bending Loc: XD Room: Type: [facility] [employer] Other XR lumbar spine 6V w bending Attending Dr: Elsie SCOTT [employer] Other XR lumbar spine 6V w bending Copies to: TYLER Field [employer] Other XR lumbar spine 6V w bending Ordering Provider: TYLER Field [employer] Other XR lumbar spine 6V w bending Date of Service: 11/30/22 [employer] Other XR lumbar spine 6V w bending XR/XR lumbar spine 6V w bending: Lumbar radicular pain [employer] Other XR lumbar spine 6V w bending LUMBAR SPINE - 6 views [employer] Other XR lumbar spine 6V w bending CLINICAL HISTORY: Low back pain radiates to left leg for 2 years. [employer] Other XR lumbar spine 6V w bending COMPARISON: Lumbar spine 07/21/2020 [employer] Other XR lumbar spine 6V w bending FINDINGS: Posterior hardware fixation L5-S1 without evidence of hardware complication. Vertebral [employer] Other XR lumbar spine 6V w bending 2020 study. No retropulsion into the spinal canal is seen. Moderate disc space narrowing L2-L3 and [employer] Other XR lumbar spine 6V w bending L3-L4. No pathological motion is seen. Restricted right-sided sidebending. [employer] Other XR lumbar spine 6V w bending XR/XR lumbar spine 6V w bending [employer] Other XR lumbar spine 6V w bending IMPRESSION: [employer] Other XR lumbar spine 6V w bending NO EVIDENCE OF HARDWARE COMPLICATION. [employer] Other XR lumbar spine 6V w bending MILD COMPRESSION DEFORMITIES OF THE L1 AND L2 VERTEBRAL BODIES NEW SINCE 2020 WITHOUT RETROPULSION [employer] Other XR lumbar spine 6V w bending INTO THE SPINAL CANAL. [employer] Other XR lumbar spine 6V w bending Impression dictated by: Alan Garcia Jr., [employer]11/30/2022 3:58 PM [employer] Other XR lumbar spine 6V w bending Dictation Location: [place] [address] [employer] Other XR lumbar spine 6V w bending Transcribed By: PWS 11/30/22 [facility] [employer] Other XR lumbar spine 6V w bending Dictated By: Alan Garcia Jr, DO 11/30/22 [facility] [employer] Other XR lumbar spine 6V w bending Signed By: [employer] Other XR lumbar spine 6V w bending 11/30/22 [facility] [facility] Telephone (PAINLN) DOMINICK CHIANG ([id number]) 1945 M [facility] Date Time Provider Department 11/18/22 ELSIE SHRESTHALN During your visit today, we recorded the following information about you: Bhupendra Shresthasselmer Encinas APRN.REFINERY OPERATOR [employer] 11/18/2022 10:57 AM Signed Spoke with Dr. Apple about patient's continued pain He recommends scheduling office visit with him for re-evaluation to discuss potential options for treatment of his pain. Please help schedule in new patient slot Kayleen MeaghanFAUSTINO 11/18/2022 1:04 PM Signed Called spoke with patient, provider's message below given. Follow up appt scheduled with Dr. Apple. Allergies As of Date: 11/18/2022 Noted Allergy Reaction JORGE INHIBITORS 02/20/2018 16 - Unknown 7 - Swelling AMINO ACIDS 07/01/2022 16 - Unknown IV CONTRAST (IODINE) 07/01/2022 14 - Other: See Comments Date Reviewed: 11/16/2022 Reviewed by: Pamela Gannon MA - Fully Assessed Reason for Visit: Patient Update [1234] Prescriptions as of 11/18/2022 - pregabalin (LYRICA) 100 mg capsule Take 100 mg by mouth twice daily. - amLODIPine (NORVASC) 5 mg tablet Take 5 mg by mouth. - metoprolol succinate ER (TOPROL XL) 50 mg 24 hr tablet TAKE 1 TABLET BY MOUTH ONCE DAILY ... (REFER TO PRESCRIPTION NOTES). - montelukast (SINGULAIR) 10 mg tablet Take 10 mg by mouth once daily. - XARELTO 15 mg tablet Take 15 mg by mouth every morning. - cloNIDine HCl (CATAPRES) 0.1 mg tablet Take 0.1 mg by mouth twice daily. - dicyclomine (BENTYL) 10 mg capsule Take 10 mg by mouth before meals and at bedtime. - levothyroxine (SYNTHROID) 150 mcg tablet Take 150 mcg by mouth daily before breakfast. - loratadine 10 mg ORAL tablet Take 1 tablet by mouth once daily. - BD ASSURE BPM-AUTO ARM CUFF Measure BP as instructed. - allopurinol 300 mg ORAL tablet Take 1 tablet by mouth once daily. - simvastatin 40 mg ORAL tablet Take 1 tablet by mouth daily at bedtime. Problem List As Of Date 11/18/2022 Noted Resolved LATERAL EPICONDYLITIS [M77.10] 03/02/2005 PAIN IN LIMB [M79.609] 03/02/2005 Impingement syndrome of shoulder, left [M75.42] 05/10/2017 Primary osteoarthritis of left shoulder [M19.01*07/25/2017 Lumbar radiculopathy [M54.16] 10/08/2022 History of lumbar fusion [Z98.1] 10/08/2022 Lumbar spondylosis [M47.816] 10/08/2022 Disorder of sacrum [M53.3] 10/08/2022 Encounter Status:Closed by MEAGHAN BEYER on 11/18/22 Normal [facility] CNOVon 11-16-2022 CNOV Office Visit (PAINLN) АНДРЕЙDOMINICK Encinas ([id number]) 1945 M T Date Time Provider Department 11/16/22 2:00 PM ELSIE SHRESTHA PAINLN During your visit today, we recorded the following information about you: Pulse Height 101/minute 1.854 m Elsie Shrestha, FERMENTER CHAMPAGNE.REFINERY OPERATOR [employer] 11/17/2022 8:43 AM Signed Mr. Chiang a 77 year old male returns today for follow up of post injection, he states that symptoms have not changed. PAIN: Pain Yes. Location: left sided low back radiating into left hip and down to foot, rates pain a 7 on a pain scale of 1-10. Patient describes pain as aching, duration to the present time occuring daily x 4. MEDICATIONS: Medications reviewed and verified. Current Outpatient Medications Medication Sig pregabalin (LYRICA) 100 mg capsule Take 100 mg by mouth twice daily. amLODIPine (NORVASC) 5 mg tablet Take 5 mg by mouth. metoprolol succinate ER (TOPROL XL) 50 mg 24 hr tablet TAKE 1 TABLET BY MOUTH ONCE DAILY ... (REFER TO PRESCRIPTION NOTES). montelukast (SINGULAIR) 10 mg tablet Take 10 mg by mouth once daily. XARELTO 15 mg tablet Take 15 mg by mouth every morning. cloNIDine HCl (CATAPRES) 0.1 mg tablet Take 0.1 mg by mouth twice daily. dicyclomine (BENTYL) 10 mg capsule Take 10 mg by mouth before meals and at bedtime. levothyroxine (SYNTHROID) 150 mcg tablet Take 150 mcg by mouth daily before breakfast. loratadine 10 mg ORAL tablet Take 1 tablet by mouth once daily. BD ASSURE BPM-AUTO ARM CUFF Measure BP as instructed. allopurinol 300 mg ORAL tablet Take 1 tablet by mouth once daily. simvastatin 40 mg ORAL tablet Take 1 tablet by mouth daily at bedtime. No current facility-administere d medications for this visit. Patient feels that medications have not used PREVIOUS TREATMENTS LASTING SIX WEEKS IN THE LAST SIX MONTHS Active conservative therapy lasting 6 weeks in the last six months (see below) 1. Physical therapy: No 2. Home exercise program after PT: No 3. Occupational therapy: No 4. A physician supervised home exercise program (HEP): No 5. Paleobotanist: Currently Going Passive conservative therapy lasting 6 weeks in the last six months (see below) 1. Medical devises: No 2. Acupuncture: No 3. Tens unit: No 4. Prescription pain medication: No 5. NSAIDS: No TREATMENTS: Caudal epidural steroid injection with Racz catheter under fluoroscopic guidance. On 10/08/2022 Only got a couple hours of relief Massage- helps little EXAM: Pulse 101 Ht 185.4 cm (6' 1 ) SpO2 97% BMI 32.98 kg/m? No acute distress noted, patient alert and oriented X's 3. Resistive testing proximal and distal in the upper and the lower extremeties show 5/5 strength. DTR's are symmetrical in the upper and the lower extremeties. Nerve root tension signs: Negative. Heart: RRR Lungs: Clear Abdomen: Soft, non tender Spine: tenderness with palpation of lumbar spine, reproducible pain with flexion IMPRESSION: Some element copied from my note on 09/14/2022, which have been updated where appropriate, and all reflect my current medical decision making from today. This is a 77 year old gentleman with history of chronic neck aLnd lower back pain in the setting of DDD, NFS, s/p L5-S1 PLIF decompression with Dr. Last in 02/2020. He recently established care with Dr Apple. He has undergone the following procedures: 08/20/2022 Left L3-L4 and L 4-5 medial branch nerve block # 1 under fluoroscopic guidance. He reports this injection offered him 30-40% pain relief for 1-2 days 10/08/2022 Caudal epidural steroid injection with Racz catheter under fluoroscopic guidance. He reports this injection offered 50% pain relief for 1-2 weeks. He continues to have lower back pain left sided lower back pain that can radiate into his lower buttock. Pain can also occur on his left underside of her foot. Pain is worsened with walking and standing. This pain keeps him from being active. He reports he can no longer tolerate this pain. He denies any red flag symptoms including weight loss, fevers, chills, night time awakening of pain, bowel bladder incontinence, saddle anesthesia, progressive numbness or weakness. We discussed that if these symptoms should arise he should seek emergency treatment. He has undergone CT of lumbar spine that was revealing for Remote postoperative changes of discectomy and posterior fusion L5-S1. There does appear to be solid bony fusion between the L5 and S1 vertebrae. Bilateral moderate neural foraminal stenoses at L5-S1 and L4-L5. He also has some continued radicular neck pain. This pain can radiate into the posterior aspect of his shoulder. He underwent MRI of cervical spine that was revealing for Mild canal stenosis at C3-4 through C5-6 which is most prominent at C5-6 where there is only slight impingement of the adjacent cord. Multilevel bony foraminal narrowing as de (more content not included)... Normal [facility] CNPNon 11-10-2022 CNPN Telephone (PAINLN) DOMINICK CHIANG ([id number]) 1945 M [facility] Date Time Provider Department 11/10/22 ELSIE SHRESTHA PAINLN During your visit today, we recorded the following information about you: Allergies As of Date: 11/10/2022 Noted Allergy Reaction JORGE INHIBITORS 02/20/2018 16 - Unknown 7 - Swelling AMINO ACIDS 07/01/2022 16 - Unknown IV CONTRAST (IODINE) 07/01/2022 14 - Other: See Comments Date Reviewed: 10/08/2022 Reviewed by: Liberty Barakat RN - Fully Assessed Prescriptions as of 11/10/2022 - pregabalin (LYRICA) 100 mg capsule Take 100 mg by mouth twice daily. - amLODIPine (NORVASC) 5 mg tablet Take 5 mg by mouth. - metoprolol succinate ER (TOPROL XL) 50 mg 24 hr tablet TAKE 1 TABLET BY MOUTH ONCE DAILY ... (REFER TO PRESCRIPTION NOTES). - montelukast (SINGULAIR) 10 mg tablet Take 10 mg by mouth once daily. - XARELTO 15 mg tablet Take 15 mg by mouth every morning. - cloNIDine HCl (CATAPRES) 0.1 mg tablet Take 0.1 mg by mouth twice daily. - dicyclomine (BENTYL) 10 mg capsule Take 10 mg by mouth before meals and at bedtime. - levothyroxine (SYNTHROID) 150 mcg tablet Take 150 mcg by mouth daily before breakfast. - loratadine 10 mg ORAL tablet Take 1 tablet by mouth once daily. - BD ASSURE BPM-AUTO ARM CUFF Measure BP as instructed. - allopurinol 300 mg ORAL tablet Take 1 tablet by mouth once daily. - simvastatin 40 mg ORAL tablet Take 1 tablet by mouth daily at bedtime. Problem List As Of Date 11/10/2022 Noted Resolved LATERAL EPICONDYLITIS [M77.10] 03/02/2005 PAIN IN LIMB [M79.609] 03/02/2005 Impingement syndrome of shoulder, left [M75.42] 05/10/2017 Primary osteoarthritis of left shoulder [M19.01*07/25/2017 Lumbar radiculopathy [M54.16] 10/08/2022 History of lumbar fusion [Z98.1] 10/08/2022 Lumbar spondylosis [M47.816] 10/08/2022 Disorder of sacrum [M53.3] 10/08/2022 Encounter Status:Closed by MEAGHAN BEYER on 11/10/22 [facility] CNPNon 10-11-2022 CNPN Telephone (PAINLN) DOMINICK CHIANG ([id number]) 1945 M T Date Time Provider Department 10/11/22 [facility]LN During your visit today, we recorded the following information about you: Meaghan Beyer LPN 10/11/2022 2:34 PM Signed Message left for patient to call in with an update. Please document the % (40%, 50%,etc) of improvement and any functional improvement since his procedure with Dr. Apple on 10/08/22. Pre Pain 4 Post Pain 0 Caudal epidural steroid injection Plan: Return to clinic in 4-6 weeks for office visit follow up.. Carol Wolf, MARVEL 10/11/2022 5:[address] Apple on Caudal epidural steroid injection 10/08/22. Pre Pain 4 Post Pain 0 - Patient Reports 80-90 % - Functional improvement Patient is able to Bend with ease Patient is able to twist Patient is able to sit for longer period of time. Patient reports going Up AND Down Stairs is the same he still has to use side rails Patient report getting up AND down from chair is still the same Patient reports Walk longer is still the same and walks with a cane depending on surface i.e. grassy surfaces. Hasn't noticed a difference Plan: Return to clinic in 4-6 weeks for office visit follow up.. PSS please assist with Follow up Carolynn Leong 10/12/2022 9:28 AM Signed Voicemail left for patient asking him to call back as soon as he receives our message to proceed with scheduling an appointment with Elsie Shrestha CNP as requested by Dr. Apple. Carolynn DAVIS October 12, 2022 9:24 AM Meaghan Beyer LPN 10/13/2022 9:24 AM Signed Message left for patient to return call. Please assist patient with scheduling a follow up appt with Figueroa Shrestha CNP per Dr. Apple's plan. Phoebe Pulido 10/13/2022 10:37 AM Signed Patient scheduled appt yesterday. Allergies As of Date: 10/11/2022 Noted Allergy Reaction JORGE INHIBITORS 02/20/2018 16 - Unknown 7 - Swelling AMINO ACIDS 07/01/2022 16 - Unknown IV CONTRAST (IODINE) 07/01/2022 14 - Other: See Comments Date Reviewed: 10/08/2022 Reviewed by: Liberty Barakat RN - Fully Assessed Reason for Visit: Pain Procedure Response AND follow up [Other] Cmt: Caudal epidural steroid injection Post Op [174] Prescriptions as of 10/13/2022 - pregabalin (LYRICA) 100 mg capsule Take 100 mg by mouth twice daily. - amLODIPine (NORVASC) 5 mg tablet Take 5 mg by mouth. - metoprolol succinate ER (TOPROL XL) 50 mg 24 hr tablet TAKE 1 TABLET BY MOUTH ONCE DAILY ... (REFER TO PRESCRIPTION NOTES). - montelukast (SINGULAIR) 10 mg tablet Take 10 mg by mouth once daily. - XARELTO 15 mg tablet Take 15 mg by mouth every morning. - cloNIDine HCl (CATAPRES) 0.1 mg tablet Take 0.1 mg by mouth twice daily. - dicyclomine (BENTYL) 10 mg capsule Take 10 mg by mouth before meals and at bedtime. - levothyroxine (SYNTHROID) 150 mcg tablet Take 150 mcg by mouth daily before breakfast. - loratadine 10 mg ORAL tablet Take 1 tablet by mouth once daily. - BD ASSURE BPM-AUTO ARM CUFF Measure BP as instructed. - allopurinol 300 mg ORAL tablet Take 1 tablet by mouth once daily. - simvastatin 40 mg ORAL tablet Take 1 tablet by mouth daily at bedtime. Problem List As Of Date 10/11/2022 Noted Resolved LATERAL EPICONDYLITIS [M77.10] 03/02/2005 PAIN IN LIMB [M79.609] 03/02/2005 Impingement syndrome of shoulder, left [M75.42] 05/10/2017 Primary osteoarthritis of left shoulder [M19.01*07/25/2017 Lumbar radiculopathy [M54.16] 10/08/2022 History of lumbar fusion [Z98.1] 10/08/2022 Lumbar spondylosis [M47.816] 10/08/2022 Disorder of sacrum [M53.3] 10/08/2022 Encounter Status:Closed by BENCHOFF PHOEBE DAVIS on 10/13/22 [facility] HISTORY PHYSICALon HISTORY PHYSICAL HNO ID: [id number] Author: Christal Apple MD Service: Pain Management Author Type: Physician Type: HANDP Filed: 10/08/2022 12:40 PM Note Text: UPDATED PROCEDURAL SEDATION HISTORY AND PHYSICAL EXAMINATION SERVICE DATE: 10/08/2022 SERVICE TIME: 12.30 PM PHYSICAL EXAM MUST BE COMPLETED ON ADMISSION PROCEDURE: CAUDAL EPIDURAL STEROID INJECTION - SACRAL Procedure Indications: lower back pain The History and Physical (completed in the past 30 days) has been reviewed and the patient has been examined. The contents accurately reflect the patient's condition with the following additions or revisions since the HANDP was completed. ASA Class: ASA Class:: Patient with severe systemic disease Examination indicates no changes. AIRWAY: Airway Visualization of Uvula: Yes Mouth opening greater than 2 fingerbreadths: Yes Neck Full Range of Motion: Yes LUNGS: Lungs clear to auscultation CARDIAC: Irregularly irregular, Provisional Diagnosis/Treatment Plan: SEDATION GOAL: Moderate This HANDP can be found in the attached. SIGNATURE: Christal Apple MD PATIENT NAME: Dominick Chiang DATE: October 08, 2022 TIME: 12:40 PM [facility] HISTORY PHYSICAL HNO ID: [id number] Author: Shazia Candelaria APRN.REFINERY OPERATOR [employer] Service: ? Author Type: Nurse Practitioner Type: HANDP Filed: 10/08/2022 11:51 AM Note Text: PROCEDURAL SEDATION HISTORY AND PHYSICAL EXAM SERVICE DATE: 10/08/2022 SERVICE TIME: 11:51 AM Subjective HPI: This is a 77 year old male who presents with lower back pain PAST ANESTHESIA HISTORY: No history of adverse event PAST MEDICAL HISTORY Diagnosis Date Gout Hyperlipidemia Hypothyroidism PAST SURGICAL HISTORY Procedure Laterality Date PAST SURGICAL HISTORY OF Ankle surgery Prior to Admission medications as of 10/08/22 1139 Medication Sig Last Dose Taking pregabalin (LYRICA) 100 mg capsule Take 100 mg by mouth twice daily. 10/08/2022 Yes amLODIPine (NORVASC) 5 mg tablet Take 5 mg by mouth. 10/08/2022 Yes metoprolol succinate ER (TOPROL XL) 50 mg 24 hr tablet TAKE 1 TABLET BY MOUTH ONCE DAILY ... (REFER TO PRESCRIPTION NOTES). 10/08/2022 Yes montelukast (SINGULAIR) 10 mg tablet Take 10 mg by mouth once daily. 10/08/2022 Yes cloNIDine HCl (CATAPRES) 0.1 mg tablet Take 0.1 mg by mouth twice daily. 10/08/2022 Yes dicyclomine (BENTYL) 10 mg capsule Take 10 mg by mouth before meals and at bedtime. Unknown Yes levothyroxine (SYNTHROID) 150 mcg tablet Take 150 mcg by mouth daily before breakfast. 10/08/2022 Yes allopurinol 300 mg ORAL tablet Take 1 tablet by mouth once daily. 10/08/2022 Yes simvastatin 40 mg ORAL tablet Take 1 tablet by mouth daily at bedtime. 10/08/2022 Yes XARELTO 15 mg tablet Take 15 mg by mouth every morning. 10/04/2022 loratadine 10 mg ORAL tablet Take 1 tablet by mouth once daily. BD ASSURE BPM-AUTO ARM CUFF Measure BP as instructed. ALLERGIES Allergen Reactions Jorge Inhibitors Unknown, Swelling Amino Acids Unknown Iv Contrast [Iodine] Other: See Comments Objective PHYSICAL EXAM: The remainder of the physical exam is noncontributory. GENERAL: Alert, no distress, cooperative AIRWAY: Airway Visualization of Uvula: Yes Mouth opening greater than 2 fingerbreadths: Yes Neck Full Range of Motion: Yes LUNGS: Lungs clear to auscultation CARDIAC: Irregularly irregular, Assessment/Plan ASA Class: ASA Class:: Patient with severe systemic disease Active Problems: Lumbar radiculopathy (POA: Unknown) Assessment AND Plan: CAUDAL EPIDURAL STEROID INJECTION - SACRAL History of lumbar fusion (POA: Unknown) Assessment AND Plan: CAUDAL EPIDURAL STEROID INJECTION - SACRAL Lumbar spondylosis (POA: Unknown) Assessment AND Plan: CAUDAL EPIDURAL STEROID INJECTION - SACRAL Disorder of sacrum (POA: Unknown) Assessment AND Plan: CAUDAL EPIDURAL STEROID INJECTION - SACRAL Resolved Problems: * No resolved hospital problems. * Medication and Non-Pharmacologic VTE Prophylaxis/Anticoag ulants VTE Prophylaxis: NA Provisional Diagnosis/Treatment Plan: CAUDAL EPIDURAL STEROID INJECTION - SACRAL SIGNATURE: Shazia Candelaria APRN.REFINERY OPERATOR [employer] PATIENT NAME: Dominick Chiang DATE: October 08, 2022 TIME: 11:51 AM [facility] NURSING PROGon 10-08-2022 NURSING PROG HNO ID: [id number] Author: Liberty Barakat RN Service: ? Author Type: Registered Nurse Type: Nursing Progress Note Filed: 10/08/2022 1:38 PM Note Text: Other: Pt said had a cold and could wait in the waiting room or outside. updated on status x 2 1315 Pt. Resting comfortably. Pt. To remain in pacu for 45 minutes because of contrast administration. Painfree. Push/pulls equal and strong bilaterally. Elizabeth snack. 1330 Pt. Stood at bedside without difficulty. No reaction noted. Mono Barakat RN [facility] OPERATIVE NOon 10-08-2022 OPERATIVE NO HNO ID: [id number] Author: Christal Apple MD Service: Pain Management Author Type: Physician Type: Operative Report Filed: 10/08/2022 12:56 PM Note Text: Patient Name Medical Record # Dominick Chiang [id number] Date of : 1945 Admit Date: October 08, 2022 Sex / Age: male / 77 year old Discharge Date: October 08, 2022 Attending Physician: Christal Apple MD OPERATIVE REPORT LOG ID: [id number] Surgery/Procedure Date: 10/08/2022 Incision/Procedure Start Time: 12:44 PM Incision Close/Procedure End Time: 12:50 PM PREOPERATIVE DIAGNOSIS: Postlaminectomy Syndrome - Lumbar and Lumbar Radiculopathy POSTOPERATIVE DIAGNOSIS: Same. NAME OF OPERATION: Caudal epidural steroid injection with Racz catheter under fluoroscopic guidance. SURGEON: Christal Apple MD CONCESSION CASHIER: None ANESTHESIA: Local INFORMED CONSENT: Risks, benefits, and alternatives were discussed with the patient in detail. He verbalized understanding and agreed to proceed. PROCEDURE: The patient was brought to the fluoroscopy OR suite. Intravenous access was not obtained prior to the procedure. The patient has positioned prone on the fluoroscopy table. Continuous hemodynamic monitoring was initiated including blood pressure, EKG and pulse oximetry. Intravenous sedation was not administered. . The area of the lumbar spine was prepped with povidone iodine x3 and draped in a sterile field using sterile towels. The sacrum and sacral cornua were visualized in an AP view. The skin and SQ over the entrry site was infiltrated using 3 CC of Lidocaine1%. A 17 gauge 3.5 inchTuohy epidural needle was inserted and advanced into the sacral hiatus under fluoroscopic guidance. After the needle passed through the sacrococcygeal ligament, the needle angle was lowered and the needle was advanced 1 cm. The needle position was confirmed using AP and lateral fluoroscopic imaging. There was no evidence of paresthesias throughout needle placement. A radiopaque 20 gauge, flexible tip catheter was introduced through the needle and directed to the S1-S2 level, under fluoroscopic guidance. The stylette was removed and aspiration was negative for blood or CSF. 1mL of Omnipaque contrast agent was slowly injected. Confirmation of spread of contrast agent within the epidural space was made with fluoroscopic imaging in the AP and lateral views. Absence of vascular uptake was confirmed as well. Subsequently, A total of 3 cc of lidocaine 1% mixed with 40 mg of Triamcinolone was injected. Contrast spread was noted from L5 to S1. The needle was then removed and bleeding was nil, Sterile dressing was applied and the patient was brought to the Recovery Room in stable condition. Drains: None. Implantable Device: None. Estimated Blood Loss: None. Specimen: None. Complications: None. I Christal Apple MD , performed the entire procedure. ASSESSMENT AND PLAN: He is status post Caudal epidural steroid injection . He did very well without any apparent complications. Post operative instructions were given. He voiced understanding, He is to return to clinic in 4-6 weeks for office visit follow up.. Christal Apple MD Pain Management October 08, 2022. [facility] CNCOon 10-04-2022 CNCO Letter Text [facility] CNPNon 09-20-2022 CNPN Telephone (PAINLN) DOMINICK CHIANG ([id number]) 1945 M [facility] Date Time Provider Department 09/20/22 ELSIE SHRESTHA PAINLN During your visit today, we recorded the following information about you: Phoebe Goldstein RN 09/20/2022 2:25 PM Signed Patient calling in to office. Verified by name and . Patient was seen in office with pain management 09/14/22. States he was advised at that time that CHOKE [employer]TER was going to discuss medication options with physician for leg pain. States he is leaving for out of town on Tuesday, and asking if something can be prescribed prior to then. Please notify patient by phone as to recommendations. Veronica Wolfe LPN 09/20/2022 2:42 PM Signed Per 09/14/22 office note: Will review results of recent injection with Dr. Apple and call patient with updated recommendations Elsie Shrestha APRN.NANDINI 09/20/2022 3:17 PM Signed I am waiting to be able to discuss patient's visit with Dr. Apple. I will call him with recommendations. Dr. Apple returned to office today and has been doing procedures all day. I have not been able to touch base with him Elsie Shrestha APRN.Elsie Iqbal APRN.NANDINI 09/21/2022 2:47 PM Signed I spoke with Dr. Apple who recommend Caudal ZEE with racz catheter given his continued pain. Please let patient know recommendations. Elsie Shrestha APRN.Ly Phan LPN 09/21/2022 3:06 PM Signed Call placed to pt, no answer, left VM with below message from Kerri for pt to return call AND let us know if he wants to proceed with the Caudal ZEE. Ly Macias LPN 09/24/2022 10:04 AM Signed Spoke with pt, he would like to schedule injection. Pt is out of state and asking that we call him on Tuesday around 10am to assist with scheduling. Caudal ZEE with racz catheter Arnol Blake 09/28/2022 12:33 PM Signed Caudal ZEE with racz catheter DOMINICK CHIANG [id number] LYNDSEY SMITH Spoke to patient. He is in [place] and will call when he is back home. Arnol Blake 10/04/2022 11:45 AM Signed Caudal ZEE with racz catheter DOMINICK CHIANG [id number] SARATH APPLE 10/[address], request around 11 if possible. +MARK XARELTO HOLD 72 HOURS PRIOR TO INJECTION, DR. RAYMOND -DM Patient was made aware that the [facility] will call the day prior to scheduled procedure between the hours of 12 and 4 pm to advise patient of arrival time the day of procedure. Patient was advised that they will require a seasonal delivery driver on the day of their procedure, and procedure will be cancelled if they arrive without a responsible adult to transport them home from the procedure. Patient advised that all medication management instructions prior to procedure will need addressed by clinical staff. Patient expresses understanding with no further questions or concerns at this time. Patient transferred to [facility] scheduling line to authorize procedure, or greenmiat appointment made. Arnol Blake 10/04/2022 11:50 AM Signed Needs permission to hold Xarelto, Dr. Raymond. Please expedite as injection is THIS Tuesday. Arnol Blake 10/04/2022 11:50 AM Signed Addended by: ARNOL BLAKE on: 10/04/2022 11:50 AM Modules accepted: Orders Yoandy Hancock LPN 10/04/2022 12:30 PM Signed Faxed permission to hold anti coagulant(Xarelto) letter to Dr. Neo Raymond received fax confirmation. Awaiting response. Meaghan Beyer LPN 10/05/2022 2:21 PM Signed Received faxed letter from Dr Raymond, giving approval for patient to hold their Xarelto for 3 days prior to scheduled injection on 10/08/22 and each subsequent injection. Notified patient to hold Xarelto for 3 days prior to his procedure. Patient verbalized understanding of instructions given and repeated medication instructions back to me correctly. Approval letter sent for scanning. Allergies As of Date: 09/20/2022 Noted Allergy Reaction JORGE INHIBITORS 02/20/2018 16 - Unknown 7 - Swelling AMINO ACIDS 07/01/2022 16 - Unknown IV CONTRAST (IODINE) 07/01/2022 14 - Other: See Comments Date Reviewed: 09/14/2022 Reviewed by: Ly Pitt MA - Fully Assessed Reason for Visit: Patient Question [4367] Schedule Injection [6188] Primary Visit Diagnosis:Lumbar radiculopathy [M54.16] Other Visit Diagnoses:History of lumbar fusion [Z98.1] Lumbar spondylosis [M47.816] Disorder of sacrum [M53.3] Order(s):SURGICAL REQUEST - ELECTIVE (09/2019) [0811230] Order #: [id number]: 1 Prescriptions as of 10/05/2022 - pregabalin (LYRICA) 100 mg capsule Take 100 mg by mouth twice daily. - amLODIPine (NORVASC) 5 mg tablet Take 5 mg by mouth. - metoprolol succinate ER (TOPROL XL) 50 mg 24 hr tablet TAKE 1 TABLET BY MOUTH ONCE DAILY ... (REFER TO PRESCRIPTION NOTES). - montelukast (SINGULAIR) 10 mg tablet Take 10 mg by mouth once daily. - XARELTO 15 mg tablet Take 15 mg by mouth every morning. - (more content not included)... [facility] CNOVon 09-14-2022 CNOV Office Visit (PAINLN) DOMINICK CHIANG Huang ([id number]) 1945 M [facility] Date Time Provider Department 09/14/22 12:00 PM ELSIE SHRESTHA PAINLN During your visit today, we recorded the following information about you: Pulse Weight Height 70/minute 113.4 kg 1.88 m Elsie Shrestha, FERMENTER CHAMPAGNE.REFINERY OPERATOR [employer] 09/14/2022 1:35 PM Signed Mr. Chiang a 77 year old male returns today for follow up of post injection , he states that symptoms have not changed. PAIN: Pain Yes. Location: LB, rates pain a 4 on a pain scale of 1-10. Patient describes pain as aching, tightness duration to the present time occuring daily x 4. MEDICATIONS: Medications reviewed and verified. Current Outpatient Medications Medication Sig pregabalin (LYRICA) 100 mg capsule Take 100 mg by mouth twice daily. amLODIPine (NORVASC) 5 mg tablet Take 5 mg by mouth. metoprolol succinate ER (TOPROL XL) 50 mg 24 hr tablet TAKE 1 TABLET BY MOUTH ONCE DAILY ... (REFER TO PRESCRIPTION NOTES). montelukast (SINGULAIR) 10 mg tablet Take 10 mg by mouth once daily. XARELTO 15 mg tablet Take 15 mg by mouth every morning. cloNIDine HCl (CATAPRES) 0.1 mg tablet Take 0.1 mg by mouth twice daily. dicyclomine (BENTYL) 10 mg capsule Take 10 mg by mouth before meals and at bedtime. levothyroxine (SYNTHROID) 150 mcg tablet Take 150 mcg by mouth daily before breakfast. loratadine 10 mg ORAL tablet Take 1 tablet by mouth once daily. BD ASSURE BPM-AUTO ARM CUFF Measure BP as instructed. allopurinol 300 mg ORAL tablet Take 1 tablet by mouth once daily. simvastatin 40 mg ORAL tablet Take 1 tablet by mouth daily at bedtime. No current facility-administere d medications for this visit. Patient feels that medications have helped a little PREVIOUS TREATMENTS LASTING SIX WEEKS IN THE LAST SIX MONTHS Active conservative therapy lasting 6 weeks in the last six months (see below) 1. Physical therapy: 2. Home exercise program after PT: No 3. Occupational therapy: No 4. A physician supervised home exercise program (HEP): No 5. Paleobotanist: No Passive conservative therapy lasting 6 weeks in the last six months (see below) 1. Medical devises: No 2. Acupuncture: No 3. Tens unit: No 4. Prescription pain medication: Yes 5. NSAIDS: No TREATMENTS: Left L3-L4 and L 4-5 medial branch nerve block # 1 08/20/2022 Lyrica 100 mg little relief Massage Therapist [place] (+) relief Chiropractic [place] (+) relief EXAM: Pulse 70 Ht 188 cm (6' 2 ) Wt 113.4 kg (250 lb) SpO2 97% BMI 32.10 kg/m? No acute distress noted, patient alert and oriented X's 3. Resistive testing proximal and distal in the upper and the lower extremeties show 5/5 strength. DTR's are symmetrical in the upper and the lower extremeties. Nerve root tension signs: Negative. Heart: RRR Lungs: Clear Abdomen: Soft, non tender Spine: Tenderness with palpation of lumbar spine, reproducible pain with extension/flexion IMPRESSION: Some element copied from my note on 07/21/2022, which have been updated where appropriate, and all reflect my current medical decision making from today. This is a 77 year old gentleman with history of chronic neck aLnd lower back pain in the setting of DDD, NFS, s/p L5-S1 PLIF decompression with Dr. Last in 02/2020. He recently established care with Dr Apple. Since last office visit he has undergone the following procedures: 08/20/2022 Left L3-L4 and L 4-5 medial branch nerve block # 1 under fluoroscopic guidance. He reports this injection offered him 30-40% pain relief for 1-2 days He continues to have lower back pain left sided lower back pain that can radiate into his lower buttock. Pain can also occur on his right side. Pain is worsened with walking and standing. This pain keeps him from being active. He denies any red flag symptoms including weight loss, fevers, chills, night time awakening of pain, bowel bladder incontinence, saddle anesthesia, progressive numbness or weakness. We discussed that if these symptoms should arise he should seek emergency treatment. He has undergone CT of lumbar spine that was revealing for Remote postoperative changes of discectomy and posterior fusion L5-S1. There does appear to be solid bony fusion between the L5 and S1 vertebrae. Bilateral moderate neural foraminal stenoses at L5-S1 and L4-L5. He also has some continued radicular neck pain. This pain can radiate into the posterior aspect of his shoulder. He underwent MRI of cervical spine that was revealing for Mild canal stenosis at C3-4 through C5-6 which is most prominent at C5-6 where there is only slight impingement of the adjacent cord. Multilevel bony foraminal narrowing as detailed above. He is currently taking Lyrica 100mg PO BID. He denies any side effects to this regimen. He is unable to take NSAIDs due to his regimen of Xarelto. I spent a total of 30 minutes on the (more content not included)... [facility] CNPCrystal 08-31-2022 CNPN Telephone (PAINLN) DOMINICK CHIANG ([id number]) 1945 M Date Time Provider Department 08/31/22 CHRISTAL APPLE During your visit today, we recorded the following information about you: Tabitha Lennon 08/31/2022 10:23 AM Signed Dominick Chiang is calling Christal Apple MD today with concern regarding Patient Question (Patient has a chiropractor visit wanting to know if he is still able to go to that appointment ) Patient has been identified by name and birthdate. Duration of symptoms: N/A Person calling: self Call patient at: at home [phone] (home) [phone] (cell) Was an appointment scheduled: No Patient wanting a call to ask questions Please call patient Closing statement: Results or non-symptom based questions: Thank you for calling [facility], your call will be returned within the next business day. Tabitha Lennon Elsie Shrestha APRN.REFINERY OPERATOR [employer] 08/31/2022 4:55 PM Signed Recommend avoiding any manipulation of spine. ALMA Bellamy LPN 08/31/2022 5:57 PM Signed Left voice mail with patient the message below.. Allergies As of Date: 08/31/2022 Noted Allergy Reaction JORGE INHIBITORS 02/20/2018 16 - Unknown 7 - Swelling AMINO ACIDS 07/01/2022 16 - Unknown IV CONTRAST (IODINE) 07/01/2022 14 - Other: See Comments Date Reviewed: 08/20/2022 Reviewed by: Yasmani Borges RN - Fully Assessed Reason for Visit: Patient Question [9797] Cmt: Patient has a chiropractor visit wanting to know if he is still able to go to that appointment Prescriptions as of 08/31/2022 - pregabalin (LYRICA) 100 mg capsule Take 100 mg by mouth twice daily. - amLODIPine (NORVASC) 5 mg tablet Take 5 mg by mouth. - metoprolol succinate ER (TOPROL XL) 50 mg 24 hr tablet TAKE 1 TABLET BY MOUTH ONCE DAILY ... (REFER TO PRESCRIPTION NOTES). - montelukast (SINGULAIR) 10 mg tablet Take 10 mg by mouth once daily. - XARELTO 15 mg tablet Take 15 mg by mouth every morning. - cloNIDine HCl (CATAPRES) 0.1 mg tablet Take 0.1 mg by mouth twice daily. - dicyclomine (BENTYL) 10 mg capsule Take 10 mg by mouth before meals and at bedtime. - levothyroxine (SYNTHROID) 150 mcg tablet Take 150 mcg by mouth daily before breakfast. - loratadine 10 mg ORAL tablet Take 1 tablet by mouth once daily. - BD ASSURE BPM-AUTO ARM CUFF Measure BP as instructed. - allopurinol 300 mg ORAL tablet Take 1 tablet by mouth once daily. - simvastatin 40 mg ORAL tablet Take 1 tablet by mouth daily at bedtime. Problem List As Of Date 08/31/2022 Noted Resolved LATERAL EPICONDYLITIS [M77.10] 03/02/2005 PAIN IN LIMB [M79.609] 03/02/2005 Impingement syndrome of shoulder, left [M75.42] 05/10/2017 Primary osteoarthritis of left shoulder [M19.01*07/25/2017 Encounter Status:Closed by TABITHA LENNON on 08/31/22 [facility] HISTORY PHYSICALon HISTORY PHYSICAL HNO ID: [id number] Author: Christal Apple MD Service: Pain Management Author Type: Physician Type: HANDP Filed: 08/20/2022 1:50 PM Note Text: UPDATED PROCEDURAL SEDATION HISTORY AND PHYSICAL EXAMINATION SERVICE DATE: 08/20/2022 SERVICE TIME: 1.45 am PHYSICAL EXAM MUST BE COMPLETED ON ADMISSION PROCEDURE: Procedure Indications: The History and Physical (completed in the past 30 days) has been reviewed and the patient has been examined. The contents accurately reflect the patient's condition with the following additions or revisions since the HANDP was completed. ASA Class: Examination indicates no changes. AIRWAY: LUNGS: CARDIAC: , Provisional Diagnosis/Treatment Plan: SEDATION GOAL: Moderate This HANDP can be found in the attached. SIGNATURE: Christal Apple MD PATIENT NAME: Dominick Chiang DATE: August 20, 2022 TIME: 1:50 PM [facility] HISTORY PHYSICAL HNO ID: [id number] Author: Phoebe Hamilton APRN.NANDINI Service: ? Author Type: Nurse Practitioner Type: HANDP Filed: 08/20/2022 1:20 PM Note Text: LOCAL PROCEDURE HISTORY AND PHYSICAL EXAM SERVICE DATE: 08/20/2022 SERVICE TIME: 1:20 PM Provisional Diagnosis/Treatment Plan: BLOCK JOINT FACET LUMBAR WITH C-ARM - Left Subjective HPI: This is a 77 year old male who presents with back pain MEDICATIONS: Prior to Admission medications as of 07/21/22 1347 Medication Sig Last Dose Taking pregabalin (LYRICA) 100 mg capsule Take 100 mg by mouth twice daily. amLODIPine (NORVASC) 5 mg tablet Take 5 mg by mouth. metoprolol succinate ER (TOPROL XL) 50 mg 24 hr tablet TAKE 1 TABLET BY MOUTH ONCE DAILY ... (REFER TO PRESCRIPTION NOTES). montelukast (SINGULAIR) 10 mg tablet Take 10 mg by mouth once daily. XARELTO 15 mg tablet Take 15 mg by mouth every morning. cloNIDine HCl (CATAPRES) 0.1 mg tablet Take 0.1 mg by mouth twice daily. dicyclomine (BENTYL) 10 mg capsule Take 10 mg by mouth before meals and at bedtime. levothyroxine (SYNTHROID) 150 mcg tablet Take 150 mcg by mouth daily before breakfast. loratadine 10 mg ORAL tablet Take 1 tablet by mouth once daily. BD ASSURE BPM-AUTO ARM CUFF Measure BP as instructed. allopurinol 300 mg ORAL tablet Take 1 tablet by mouth once daily. simvastatin 40 mg ORAL tablet Take 1 tablet by mouth daily at bedtime. ALLERGIES Allergen Reactions Jorge Inhibitors Unknown, Swelling Amino Acids Unknown Iv Contrast [Iodine] Other: See Comments Objective PHYSICAL EXAM: The remainder of the physical exam is noncontributory. GENERAL: Alert, no distress, cooperative LUNGS: Lungs clear to auscultation, Good diaphragmatic excursion CARDIAC: Normal S1 and S2; no rubs, murmurs, or gallops There were no vitals taken for this visit. PAIN ASSESSMENT: PAIN EVALUATION No data found in the last 1 encounters. Assessment/Plan Active Problems: Abnormality of gait [R26.9] Cervical disc disorder with radiculopathy [M50.10] History of lumbar fusion [Z98.1] Chronic midline low back pain with sciatica, sciatica laterality unspecified [M54.40, G89.29] Medication and Non-Pharmacologic VTE Prophylaxis/Anticoag ulants VTE Prophylaxis: NA SIGNATURE: Phoebe Hamilton APRN.CNP PATIENT NAME: Dominick Chiang DATE: August 20, 2022 TIME: 1:20 PM [facility] OPERATIVE NOon 08-20-2022 OPERATIVE NO HNO ID: [id number] Author: Christal Apple MD Service: Pain Management Author Type: Physician Type: Operative Report Filed: 08/20/2022 2:16 PM Note Text: Patient Name Medical Record Natalio Chiang [id number] Date of : 1945 Admit Date: August 20, 2022 Sex / Age: male/77 year old Discharge Date: August 20, 2022 Attending Physician: Christal Apple MD OPERATIVE REPORT LOG ID: [id number] Surgery/Procedure Date: 08/20/2022 Incision/Procedure Start Time: 1:59 PM Incision Close/Procedure End Time: 2:03 PM PREOPERATIVE DIAGNOSIS: 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 NAME OF OPERATION: Left L3-L4 and L 4-5 medial branch nerve block # 1 under fluoroscopic guidance. SURGEON: Christal Apple MD CONCESSION CASHIER: None. ANESTHESIA: Local INFORMED CONSENT: Risks, benefits, and alternatives were discussed with the patient in detail. He verbalized understanding and agreed to proceed. PROCEDURE: The patient was brought to the fluoroscopy OR suite. Intravenous access was not obtained prior to the procedure.The patient was positioned prone on the fluoroscopy table. Continuous hemodynamic monitoring was achieved including blood pressure, EKG, and pulse oximetry. Intravenous sedation was not administered. . The area of the lumbar spine was prepped well with povidone-iodine x 3 and draped into a sterile field. Fluoroscopy was used to identify the location of 2 median branch nerves at the junctions of the superior articular processes and the transverse processes of Left L3, L4, and L5 respectively. Skin anesthesia was achieved using a total of 3 cc of lidocaine 1 % over receptive injection sites. A A 25 -gauge, 3.5 -inch spinal needle was slowly inserted and advanced at each level, Left L3-L4, L4-L5, using AP and Oblique fluoroscopic imaging for needle guidance. Negative aspiration of blood and CSF was confirmed. A combination of 1 cc of bupivacaine 0.5% mixed with 5 mg of Triamcinolone was injected at each level for a total of 15 mg of Triamcinolone. The needles were removed. Bleeding was nil. A sterile dressing was applied. The patient was taken to the recovery room in stable condition. Complications: None. Estimated Blood Loss: None. Drains: None. Implantable Device: None. Specimen: None. I, Christal Apple MD, performed the entire procedure. ASSESSMENT AND PLAN: Dominick Chiang is status post Left L3, L4, facet median branch nerve block. He is to return to clinic in 3-4 weeks for follow up. Postoperative instructions were given. He voiced understanding, and he was discharged to home in stable condition. Christal Apple MD PAIN MANAGEMENT August 20, 2022 [facility] CNPNon 08-13-2022 CNPN Telephone (PAINLN) DOMINICK CHIANG ([id number]) 1945 M [facility] Date Time Provider Department 08/13/22 ELSIE SHRESTHA PAINLN During your visit today, we recorded the following information about you: Elsie Shrestha APRN.REFINERY OPERATOR [employer] 11/09/2022 2:09 PM Signed Please let patient know MRI Mild canal stenosis at C3-4 through C5-6 which is most prominent at C5-6 where there is only slight impingement of the adjacent cord. Multilevel bony foraminal narrowing as detailed above. 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 Plan to proceed with injection as schedule we can go over MRI in his follow up visit following injection Elsie Shrestha APRN.REFINERY OPERATOR [employer] Allergies As of Date: 08/13/2022 Noted Allergy Reaction JORGE INHIBITORS 02/20/2018 16 - Unknown 7 - Swelling AMINO ACIDS 07/01/2022 16 - Unknown IV CONTRAST (IODINE) 07/01/2022 14 - Other: See Comments Date Reviewed: 07/21/2022 Reviewed by: Pamela Gannon MA - Fully Assessed Prescriptions as of 11/09/2022 - pregabalin (LYRICA) 100 mg capsule Take 100 mg by mouth twice daily. - amLODIPine (NORVASC) 5 mg tablet Take 5 mg by mouth. - metoprolol succinate ER (TOPROL XL) 50 mg 24 hr tablet TAKE 1 TABLET BY MOUTH ONCE DAILY ... (REFER TO PRESCRIPTION NOTES). - montelukast (SINGULAIR) 10 mg tablet Take 10 mg by mouth once daily. - XARELTO 15 mg tablet Take 15 mg by mouth every morning. - cloNIDine HCl (CATAPRES) 0.1 mg tablet Take 0.1 mg by mouth twice daily. - dicyclomine (BENTYL) 10 mg capsule Take 10 mg by mouth before meals and at bedtime. - levothyroxine (SYNTHROID) 150 mcg tablet Take 150 mcg by mouth daily before breakfast. - loratadine 10 mg ORAL tablet Take 1 tablet by mouth once daily. - BD ASSURE BPM-AUTO ARM CUFF Measure BP as instructed. - allopurinol 300 mg ORAL tablet Take 1 tablet by mouth once daily. - simvastatin 40 mg ORAL tablet Take 1 tablet by mouth daily at bedtime. Problem List As Of Date 08/13/2022 Noted Resolved LATERAL EPICONDYLITIS [M77.10] 03/02/2005 PAIN IN LIMB [M79.609] 03/02/2005 Impingement syndrome of shoulder, left [M75.42] 05/10/2017 Primary osteoarthritis of left shoulder [M19.01*07/25/2017 Encounter Status:Closed by ELSIE SHRESTHA on 11/09/22 [facility] MR Cervical spine ROZ mancera 08-06-2022 IMPRESSION: Mild canal stenosis at C3-4 through C5-6 which is most prominent at C5-6 where there is only slight impingement of the adjacent cord. Multilevel bony foraminal narrowing as detailed above. Anatomic Variant: None. Assume 7 cervical vertebrae with counting from the craniocervical junction. Lot Technician: PSCB Transcribe Date/Time: Aug 06 2022 1:45P Dictated by : YADI GARCÍA MD This examination was interpreted and the report reviewed and electronically signed by: YADI GARCÍA MD on Aug 06 2022 1:51PM [facility] DIVISION OF RADIOLOGY * * *Final Report* * * DATE OF EXAM: Aug 06 2022 12:31PM LNM 0297 - MRI CERVICAL SPINE WO IVCON / PROCEDURE REASON: multiple diagnoses * * * * Physician Interpretation * * * * EXAMINATION: MRI CERVICAL SPINE WO IVCON CLINICAL HISTORY: Chronic neck and radicular pain and imbalance. TECHNIQUE: Routine cervical spine MR protocol without gadolinium. MQ: [id number]_[id number] COMPARISON: None. RESULT: Counting reference: Craniocervical junction. Anatomic Variants: None. Localizer images: No additional findings. Alignment: Minimal spondylolisthesis at C5-6. Alignment is otherwise anatomic. Severe disc space narrowing is noted at C4-5 and C6-7, moderate disc space narrowing is noted at C3-4 and mild disc space narrowing is noted at C5-6, T2-3 and T3-4. Craniocervical junction: Alignment at the craniocervical junction is within normal limits. Cord: The cervical and visualized upper thoracic spinal cord is within normal limits of signal intensity and morphology with the exception of mild eccentric flattening of ventral surface of the cord to the left of midline at C6-7 by adjacent disc osteophyte complex as outlined below. Bone marrow signal/fracture: No evidence of pathologic marrow infiltration. No evidence of prior fracture. Cervical soft tissues: The paraspinal soft tissues are within normal limits. C2-C3: Canal and right neural foramen are patent. Facet and uncinate processes hypertrophy cause mild to moderate left foraminal stenosis. C3-C4: Minimal disc osteophyte complex. No impact on the cord. Facet and uncinate processes hypertrophy cause mild to moderate bilateral foraminal stenosis. C4-C5: Minimal spondylolisthesis and mild bony hypertrophic changes with no impact on the cord. Asymmetric facet degenerative changes but the foramina appear patent. C5-C6: Mild disc osteophyte complex which is eccentric to the left of midline and accounts for mild eccentric flattening of ventral surface of the cord but no significant cord compression. Uncinate processes hypertrophy causes mild left foraminal stenosis. Right neural foramen is patent. C6-C7: Canal and foramina are patent. C7-T1: Canal and foramina are patent. DIVISION OF RADIOLOGY Provider, [facility] - 08/06/2022 * * *Final Report* * * DATE OF EXAM: Aug 06 2022 12:31PM LNM 0297 - MRI CERVICAL SPINE WO IVCON / PROCEDURE REASON: multiple diagnoses * * * * Physician Interpretation * * * * EXAMINATION: MRI CERVICAL SPINE WO IVCON CLINICAL HISTORY: Chronic neck and radicular pain and imbalance. TECHNIQUE: Routine cervical spine MR protocol without gadolinium. MQ: [id number]_[id number] COMPARISON: None. RESULT: Counting reference: Craniocervical junction. Anatomic Variants: None. Localizer images: No additional findings. Alignment: Minimal spondylolisthesis at C5-6. Alignment is otherwise anatomic. Severe disc space narrowing is noted at C4-5 and C6-7, moderate disc space narrowing is noted at C3-4 and mild disc space narrowing is noted at C5-6, T2-3 and T3-4. Craniocervical junction: Alignment at the craniocervical junction is within normal limits. Cord: The cervical and visualized upper thoracic spinal cord is within normal limits of signal intensity and morphology with the exception of mild eccentric flattening of ventral surface of the cord to the left of midline at C6-7 by adjacent disc osteophyte complex as outlined below. Bone marrow signal/fracture: No evidence of pathologic marrow infiltration. No evidence of prior fracture. Cervical soft tissues: The paraspinal soft tissues are within normal limits. C2-C3: Canal and right neural foramen are patent. Facet and uncinate processes hypertrophy cause mild to moderate left foraminal stenosis. C3-C4: Minimal disc osteophyte complex. No impact on the cord. Facet and uncinate processes hypertrophy cause mild to moderate bilateral foraminal stenosis. C4-C5: Minimal spondylolisthesis and mild bony hypertrophic changes with no impact on the cord. Asymmetric facet degenerative changes but the foramina appear patent. C5-C6: Mild disc osteophyte complex which is eccentric to the left of midline and accounts for mild eccentric flattening of ventral surface of the cord but no significant cord compression. Uncinate processes hypertrophy causes mild left foraminal stenosis. Right neural foramen is patent. C6-C7: Canal and foramina are patent. C7-T1: Canal and foramina are patent. IMPRESSION IMPRESSION: Mild canal stenosis at C3-4 through C5-6 which is most prominent at C5-6 where there is only slight impingement of the adjacent cord. Multilevel bony foraminal narrowing as detailed above. Anatomic Variant: None. Assume 7 cervical vertebrae with counting from the craniocervical junction. Lot Technician: BEATRIZ Transcribe Date/Time: Aug 06 2022 1:45P Dictated by : YADI GARCÍA MD This examination was interpreted and the report reviewed and electronically signed by: YADI GARCÍA MD on Aug 06 2022 1:51PM EST [facility] Radiology Study observation (narrative) [facility] MR Cervical spine WO contras tOrdered By: [facility] Provider on 08-06-2022 [facility] MRI CERVICAL SPINE WO IVCONo n 08-06-2022 MRI CERVICAL SPINE WO IVCON * * *Final Report* * * DATE OF EXAM: Aug 06 2022 12:31PM LNM 0297 - MRI CERVICAL SPINE WO IVCON / PROCEDURE REASON: multiple diagnoses * * * * Physician Interpretation * * * * EXAMINATION: MRI CERVICAL SPINE WO IVCON CLINICAL HISTORY: Chronic neck and radicular pain and imbalance. TECHNIQUE: Routine cervical spine MR protocol without gadolinium. MQ: [id number]_3 COMPARISON: None. RESULT: Counting reference: Craniocervical junction. Anatomic Variants: None. Localizer images: No additional findings. Alignment: Minimal spondylolisthesis at C5-6. Alignment is otherwise anatomic. Severe disc space narrowing is noted at C4-5 and C6-7, moderate disc space narrowing is noted at C3-4 and mild disc space narrowing is noted at C5-6, T2-3 and T3-4. Craniocervical junction: Alignment at the craniocervical junction is within normal limits. Cord: The cervical and visualized upper thoracic spinal cord is within normal limits of signal intensity and morphology with the exception of mild eccentric flattening of ventral surface of the cord to the left of midline at C6-7 by adjacent disc osteophyte complex as outlined below. Bone marrow signal/fracture: No evidence of pathologic marrow infiltration. No evidence of prior fracture. Cervical soft tissues: The paraspinal soft tissues are within normal limits. C2-C3: Canal and right neural foramen are patent. Facet and uncinate processes hypertrophy cause mild to moderate left foraminal stenosis. C3-C4: Minimal disc osteophyte complex. No impact on the cord. Facet and uncinate processes hypertrophy cause mild to moderate bilateral foraminal stenosis. C4-C5: Minimal spondylolisthesis and mild bony hypertrophic changes with no impact on the cord. Asymmetric facet degenerative changes but the foramina appear patent. C5-C6: Mild disc osteophyte complex which is eccentric to the left of midline and accounts for mild eccentric flattening of ventral surface of the cord but no significant cord compression. Uncinate processes hypertrophy causes mild left foraminal stenosis. Right neural foramen is patent. C6-C7: Canal and foramina are patent. C7-T1: Canal and foramina are patent. IMPRESSION: Mild canal stenosis at C3-4 through C5-6 which is most prominent at C5-6 where there is only slight impingement of the adjacent cord. Multilevel bony foraminal narrowing as detailed above. Anatomic Variant: None. Assume 7 cervical vertebrae with counting from the craniocervical junction. Lot Technician: BEATRIZ Transcribe Date/Time: Aug 06 2022 1:45P Dictated by : YADI GARCÍA MD This examination was interpreted and the report reviewed and electronically signed by: YADI GARCÍA MD on Aug 06 2022 1:51PM EST [id number] [facility] (ORLORA) DOMINICK CHIANG ([id number]) 1945 M Date Time Provider Department 07/22/22 CHRISTAL APPLE During your visit today, we recorded the following information about you: Arnol Blake 07/22/2022 10:49 AM Signed Left L2-L3, L3-L4 medial DOMINICK Sequeira [id number] LYNDSEY GROSS First attempt to schedule injection. Left detailed voicemail asking patient to return call to surgery coordinator at [phone]. Arnol Blake 07/22/2022 2:19 PM Signed Left L2-L3, L3-L4 medial DOMINICK Sequeira [id number] LYNDSEY 08/20 + mark CLAY ok -DM Patient was made aware that the [facility] will call the day prior to scheduled procedure between the hours of 12 and 4 pm to advise patient of arrival time the day of procedure. Patient was advised that they will require a seasonal delivery driver on the day of their procedure, and procedure will be cancelled if they arrive without a responsible adult to transport them home from the procedure. Patient advised that all medication management instructions prior to procedure will need addressed by clinical staff. Patient expresses understanding with no further questions or concerns at this time. Patient transferred to [facility] scheduling line to authorize procedure, or [facility] appointment made. Allergies As of Date: 07/22/2022 Noted Allergy Reaction JORGE INHIBITORS 02/20/2018 16 - Unknown 7 - Swelling AMINO ACIDS 07/01/2022 16 - Unknown IV CONTRAST (IODINE) 07/01/2022 14 - Other: See Comments Date Reviewed: 07/21/2022 Reviewed by: Pamela Gannon MA - Fully Assessed Reason for Visit: Schedule Injection [3498] Primary Visit Diagnosis:Abnormalit y of gait [R26.9] Other Visit Diagnoses:Cervical disc disorder with radiculopathy [M50.10] History of lumbar fusion [Z98.1] Chronic midline low back pain with sciatica, sciatica laterality unspecified [M54.40, G89.29] Order(s):SURGICAL REQUEST - ELECTIVE (09/2019) [[id number]] Order #: [id number]: 1 Prescriptions as of 07/22/2022 - pregabalin (LYRICA) 100 mg capsule Take 100 mg by mouth twice daily. - amLODIPine (NORVASC) 5 mg tablet Take 5 mg by mouth. - metoprolol succinate ER (TOPROL XL) 50 mg 24 hr tablet TAKE 1 TABLET BY MOUTH ONCE DAILY ... (REFER TO PRESCRIPTION NOTES). - montelukast (SINGULAIR) 10 mg tablet Take 10 mg by mouth once daily. - XARELTO 15 mg tablet Take 15 mg by mouth every morning. - cloNIDine HCl (CATAPRES) 0.1 mg tablet Take 0.1 mg by mouth twice daily. - dicyclomine (BENTYL) 10 mg capsule Take 10 mg by mouth before meals and at bedtime. - levothyroxine (SYNTHROID) 150 mcg tablet Take 150 mcg by mouth daily before breakfast. - loratadine 10 mg ORAL tablet Take 1 tablet by mouth once daily. - BD ASSURE BPM-AUTO ARM CUFF Measure BP as instructed. - allopurinol 300 mg ORAL tablet Take 1 tablet by mouth once daily. - simvastatin 40 mg ORAL tablet Take 1 tablet by mouth daily at bedtime. Problem List As Of Date 07/22/2022 Noted Resolved LATERAL EPICONDYLITIS [M77.10] 03/02/2005 PAIN IN LIMB [M79.609] 03/02/2005 Impingement syndrome of shoulder, left [M75.42] 05/10/2017 Primary osteoarthritis of left shoulder [M19.01*07/25/2017 Encounter Status:Closed by ARNOL BLAKE on 07/22/22 [facility] CNOVon 07-21-2022 CNOV Office Visit (PAINLN) DOMINICK CHIANG ([id number]) 1945 M Date Time Provider Department 07/21/22 2:00 PM ELSIE SHRESTHA PAINLN During your visit today, we recorded the following information about you: Pulse Height 70/minute 1.88 m Elsie Shrestha APRN.REFINERY OPERATOR [employer] 07/21/2022 5:27 PM Signed Mr. Chiang a 77 year old male returns today for follow up of CT Results, he states that symptoms have not changed. PAIN: Pain Yes. Location: LB, rates pain a 1 on a pain scale of 1-10. Patient describes pain as aching, duration to the present time occuring daily MEDICATIONS: Medications reviewed and verified. Current Outpatient Medications Medication Sig pregabalin (LYRICA) 100 mg capsule Take 100 mg by mouth twice daily. amLODIPine (NORVASC) 5 mg tablet Take 5 mg by mouth. metoprolol succinate ER (TOPROL XL) 50 mg 24 hr tablet TAKE 1 TABLET BY MOUTH ONCE DAILY ... (REFER TO PRESCRIPTION NOTES). montelukast (SINGULAIR) 10 mg tablet Take 10 mg by mouth once daily. XARELTO 15 mg tablet Take 15 mg by mouth every morning. cloNIDine HCl (CATAPRES) 0.1 mg tablet Take 0.1 mg by mouth twice daily. dicyclomine (BENTYL) 10 mg capsule Take 10 mg by mouth before meals and at bedtime. levothyroxine (SYNTHROID) 150 mcg tablet Take 150 mcg by mouth daily before breakfast. loratadine 10 mg ORAL tablet Take 1 tablet by mouth once daily. BD ASSURE BPM-AUTO ARM CUFF Measure BP as instructed. allopurinol 300 mg ORAL tablet Take 1 tablet by mouth once daily. simvastatin 40 mg ORAL tablet Take 1 tablet by mouth daily at bedtime. No current facility-administere d medications for this visit. Patient feels that medications have can't tell if helps PREVIOUS TREATMENTS LASTING SIX WEEKS IN THE LAST SIX MONTHS Active conservative therapy lasting 6 weeks in the last six months (see below) 1. Physical therapy: No 2. Home exercise program after PT: No 3. Occupational therapy: No 4. A physician supervised home exercise program (HEP): No 5. Paleobotanist: Still going Passive conservative therapy lasting 6 weeks in the last six months (see below) 1. Medical devises: No 2. Acupuncture: No 3. Tens unit: No 4. Prescription pain medication: Yes 5. NSAIDS: No TREATMENTS: Lyrica 100 mg BID Swimming EXAM: Pulse 70 Ht 188 cm (6' 2 ) SpO2 98% BMI 29.53 kg/m? No acute distress noted, patient alert and oriented X's 3. Resistive testing proximal and distal in the upper and the lower extremeties show 5/5 strength. DTR's are symmetrical in the upper and the lower extremeties. Nerve root tension signs: Negative. Heart: RRR Lungs: Clear Abdomen: Soft, non tender Spine: Tenderness with palpation of lumbar spine, reproducible pain with extension and axial loading LUE brisk reflexes noticed, + Spurlings to the left IMPRESSION: This is a 77 year old gentleman with history of chronic neck aLnd lower back pain in the setting of DDD, NFS, s/p L5-S1 PLIF decompression with Dr. Last in 02/2020. He recently established care with Dr Apple. He comes to office today accompanied by his . Since last office visit he has undergone CT of lumbar spine that was revealing for Remote postoperative changes of discectomy and posterior fusion L5-S1. There does appear to be solid bony fusion between the L5 and S1 vertebrae. Bilateral moderate neural foraminal stenoses at L5-S1 and L4-L5. He continues to have left sided low back pain. This pain is worsened with walking and standing. On exam he had reproducible pain with axial loading and extension. He also reports having continued radicular neck pain that can radiate into the posterior aspect of his shoulder. He has had issues with balance. He had xray of cervical spine that was revealing for Mild levocurvature at C4 The is grade I anterolisthesis at C5-6. Multilevel disc space narrowing most pronounced at C6-7 Moderate hypertrophic facet arthrosis and ligamentum nuchae calcification. Bony foraminal narrowing on the left at C4-5 through C6-7 and on the right at C3-4 through C5-6. We discussed getting MRI of cervical spine. I spent a total of 30 minutes on the date of the service which included preparing to see the patient, [id number] patient care, completing clinical documentation, obtaining and/or reviewing separately obtained history, performing a medically appropriate examination, counseling and educating the patient/family/careg iver, and ordering medications, tests, or procedures. PLAN: Abnormality of gait Cervical disc disorder with radiculopathy - MRI of cervical spine - Reviewed red flag symptoms to watch for History of lumbar fusion Chronic midline low back pain with sciatica, sciatica laterality unspecified - Left L3-L4, L4-L5 medial branch block - Consider Left Lumbar RFA if pain controlled with medial branch block - RTC following injection Elsie Shrestha APRN. (more content not included)... Normal [facility] CT LUMBAR SPINE WO IVCONon 0 07-13-2022 CT LUMBAR SPINE WO IVCON * * *Final Report* * * DATE OF EXAM: Jul 13 2022 2:35PM [facility] 0508 - CT LUMBAR SPINE WO IVCON / PROCEDURE REASON: multiple diagnoses * * * * Physician Interpretation * * * * RESULT: EXAMINATION: CT LUMBAR SPINE WO IVCON CLINICAL HISTORY: Chronic midline low back pain with sciatica, sciatica laterality unspecified Chronic midline low back pain with sciatica, sciatica laterality unspecified History of lumbar fusion TECHNIQUE: Spiral, high resolution axial unenhanced images were obtained from the thoracolumbar junction to the sacrum with sagittal and coronal planar reconstructions. MQ: [id number] CT Radiation dose: Integrated Dose-Length Product (DLP) for this visit = 1478 mGy*cm. CT Dose Reduction Employed: Automated exposure control (AEC) COMPARISON: None. RESULT: Counting reference: Lumbosacral junction. For the purposes of this report, L4-5 is considered the level of the iliac crest and assume there are 5 lumbar-type vertebrae. Anatomic variant: None. Enterprise Application Architect (topogram) images: Bilateral posterior spinal fixation rods pedicle screws at L5-S1. Postop: There are bilateral posterior spinal fixation rods and pedicle screws. They are radiographically intact. There are postop changes of discectomy and fusion L5-S1. There is solid bony fusion between the L5 and S1 segments (series 6 image 51). Alignment: Alignment is anatomic. Bone marrow /fracture: No evidence of a lytic or blastic process in the visualized spine. Chronic bilateral L5 pars fractures. Paraspinal soft tissues: The paraspinal soft tissues planes are maintained. Lower thoracic spine: The visualized lower thoracic bony canal and foramina are patent. L1-L2: Canal and foramina are patent. L2-L3: Canal and foramina are patent L3-L4: Canal is patent. Neural foramina are patent. L4-L5: Canal is patent. Bilateral moderate neural foraminal stenosis due to facet hypertrophy. L5-S1: Mild canal stenosis due to hypertrophic changes in the fused endplates. Bilateral moderate neural foraminal stenosis due to anterolisthesis and loss of disc height. Sacrum and iliac wings: The visualized sacrum and iliac wings are within normal limits. IMPRESSION: Remote postoperative changes of discectomy and posterior fusion L5-S1. There does appear to be solid bony fusion between the L5 and S1 vertebrae. Bilateral moderate neural foraminal stenoses at L5-S1 and L4-L5. Anatomic Lumbar Variant: None. L4-5 is considered the level of the iliac crest and assume there are 5 lumbar-type vertebrae. Transcribe Date/Time: Jul 13 2022 3:11P Dictated by: RUBIA TIERNEY MD This examination was interpreted and the report reviewed and electronically signed by: RUBIA TIERNEY MD on Jul 13 2022 3:17PM EST Thank you for allowing us to participate in the care of your patient. Should there be any questions regarding this interpretation, please call [phone]. If you are unable to reach us at the number above, please feel free to contact [facility] at [phone]. [id number] CN Normal [facility] XR CERVICAL 4V AP/LAT/OBLon 07-13-2022 XR CERVICAL 4V AP/LAT/OBL * * *Final Report* * * DATE OF EXAM: Jul 13 2022 3:07PM [id number] - XR CERVICAL 4V AP/LAT/OBL / PROCEDURE REASON: multiple diagnoses * * * * Physician Interpretation * * * * CERVICAL SPINE RADIOGRAPHS HISTORY: Facet arthropathy, cervical Abnormality of gait TECHNOLOGIST PROVIDED HISTORY (if applicable): Neck pain, low back pain, radiates to legs TECHNIQUE: XR CERVICAL 4V AP/LAT/OBL COMPARISON: None available RESULT: Counting reference: Craniocervical junction Vertebral bodies have normal height and contour. There is no acute bony abnormality identified. Mild levocurvature at C4 The is grade I anterolisthesis at C5-6. Multilevel disc space narrowing most pronounced at C6-7 Moderate hypertrophic facet arthrosis and ligamentum nuchae calcification. Bony foraminal narrowing on the left at C4-5 through C6-7 and on the right at C3-4 through C5-6. Bilateral carotid calcifications IMPRESSION: 1. Moderate cervical spondylosis as described above. Lot Technician: BEATRIZ Transcribe Date/Time: Jul 14 2022 7:57A Dictated by : TON HOU MD This examination was interpreted and the report reviewed and electronically signed by: TON HOU MD on Jul 14 2022 7:59AM EST [id number] CN Normal [facility] XR LUMBAR 4V AP/LAT/ FLEX/EX Ton 07-13-2022 XR LUMBAR 4V AP/LAT/ FLEX/EXT * * *Final Report* * * DATE OF EXAM: Jul 13 2022 3:07PM [id number] - XR LUMBAR 4V AP/LAT/ FLEX/EXT / PROCEDURE REASON: multiple diagnoses * * * * Physician Interpretation * * * * LUMBAR SPINE RADIOGRAPHS HISTORY: Chronic midline low back pain with sciatica, sciatica laterality unspecified Chronic midline low back pain with sciatica, sciatica laterality unspecified History of lumbar fusion TECHNOLOGIST PROVIDED HISTORY (if applicable): Neck pain, low back pain, radiates to legs TECHNIQUE: XR LUMBAR 4V AP/LAT/ FLEX/EXT COMPARISON: None available RESULT: Counting reference: Lumbosacral junction. For the purposes of this report, L5-S1 is considered the last lumbar type disc space and L4-L5 is considered the level of the iliac crest. Vertebral bodies have normal height and contour. There is no compression deformity or acute bony abnormality identified. There has been posterior interbody lumbar fusion from L5-S1. There are bilateral pedicle screws with fusion rods and interbody cages appearing intact. Mild dextrocurvature at L3 Grade 1 anterolisthesis at L5-S1 fusion level Multilevel lumbar disc space narrowing with endplate osteophytes Mid lumbar facet arthrosis. . There are bilateral sacroiliac joint and hip degenerative changes partially visualized on this study. 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 IMPRESSION: 1. Stable interbody lumbar fusion from L5-S1 with moderate diffuse lumbar spondylosis Lot Technician: [email or web address] Transcribe Date/Time: Jul 14 2022 7:59A Dictated by : TON HOU MD This examination was interpreted and the report reviewed and electronically signed by: TON HOU MD on Jul 14 2022 8:01AM EST [id number] CN Normal [facility] CNOVon 07-01-2022 CNOV Office Visit (PAINLN) DOMINICK CHIANG ([id number]) 1945 M Date Time Provider Department 07/01/22 1:00 PM [facility] During your visit today, we recorded the following information about you: Pulse 59/minute Christal Apple MD 07/01/2022 2:04 PM Signed SUBJECTIVE: Mr. Chiang a 77 year old male referred by other presents with the complaint of bilateral hip pain. Patient reports the date of onset of symptoms as 2 years and describes the location of the pain as midline. The pain is chronic, dull, and rated as moderate, with radiation. PAIN RATIO: (back:leg): Leg > Back Patient reports that LBP is increased by walking and relieved by lying down. Ambulation distance (before needing to sit): no specific amount Standing time (before needing to sit): no specific amount OTHER BACK PAIN SYMPTOMS: NIGHT PAIN: Yes occasionaly PARESTHESIA: No POOR SLEEP: Yes sometimes BOWEL/BLADDER INCONTINENCE OR RETENTION: No ACTIVITY LIMITATIONS: ADLs PREVIOUS TREATMENTS LASTING SIX WEEKS IN THE LAST SIX MONTHS Active conservative therapy lasting 6 weeks in the last six months (see below) 1. Physical therapy: [place] last time 2 weeks 2. Home exercise program after PT: No 3. Occupational therapy: No 4. A physician supervised home exercise program (HEP): No 5. Paleobotanist: yes Passive conservative therapy lasting 6 weeks in the last six months (see below) 1. Medical devises: No 2. Acupuncture: No 3. Tens unit: No 4. Prescription pain medication: Yes 5. NSAIDS: No OCCUPATIONAL HISTORY: retired HISTORY OF TRAUMA/OVERUSE OF AREA: No REVIEW OF SYSTEMS: GENERAL: Negative for malaise, significant weight loss and fever HEENT: Negative for frequent or significant headaches NECK: Negative for lumps, goiter, pain and significant neck swelling RESPIRATORY: Negative for cough, hemoptysis, wheezing, COPD, dyspnea or shortness of breath PAST MEDICAL HISTORY Diagnosis Date Gout Hyperlipidemia Hypothyroidism PAST MEDICAL HISTORY Diagnosis Date Gout Hyperlipidemia Hypothyroidism PAST SURGICAL HISTORY Procedure Laterality Date PAST SURGICAL HISTORY OF Ankle surgery EXAMINATION: [id number] TERIOR: Scoliosis: No Pelvic Tilt: No Leg Length discrepancy: NA LATERAL: Cervical Lordosis: No Thoracic Kyphosis: No Lumbar Lordosis: No RANGE OF MOTION CERVICAL: Flexion: Not Limited Extension: Not Limited Rotation L: Not Limited Rotation R: Not Limited Side Bending R: Not Limited Side Bending L: Not Limited LUMBAR: Flexion: Not Limited Extension: Not Limited Rotation L: Not Limited Rotation R: Not Limited Side Bending R: Not Limited Side Bending L: Not Limited FINGER TO FLOOR DISTANCE: Knee Gait: antalgic / mild trendel REFLEXES R L Biceps (C6): 1-2+ 1-2+ Triceps (C7): 1-2+ 3 Brachioradiolis (C6): 1-2+ 2+ Ankle (S1): 2+ 2+ Knee (L4): 2+ 2+ STRENGTH (0-5): R L Deltoid (AB:C5,6): 5 5 Biceps (Flex:C5,6): 5 5 Wrist Ext.(C6,7): 5 5 Interrosei (C8,T1): 5 5 PSOAS (L2,3): 5 5 Gluteus (L5,S1,2): 5 5 Quadriceps (L3,4): 5 5 EHL (L5): 5 5 Soleus (S1): 5 5 SLR: Seated - Right Negative, Left Negative NEG Bailey's Babinski Negative Negative HIP: ROM is WNL without pain in flexion, extension and internal rotation. FABERES: NA KAMRYN TEST 1) Tenderness: Appropriate 2) Simulation/Axial Loading/ROT: Appropriate 3) Distraction: Seated SLR: Appropriate 4) Reqional Disturbances: Appropriate 5) Overreaction: Appropriate PHYSICAL EXAMINATION: GENERAL APPEARANCE: Well appearing, in no acute distress SKIN: Skin color, texture, turgor normal. No rashes or lesions. HEAD: Normocephalic. No masses, lesions, tenderness or abnormalities EYES: Conjunctivae/corneas clear. Pupils are equally round and reactive to light. Extraocular movements are intact. NECK: Neck supple, no adenopathy; thyroid symmetric, normal size, no bruits. LUNGS: Lungs clear to auscultation, No wheezing or rhonchi HEART: negative. RRR without murmur, gallop, or rubs. No ectopy. ABDOMEN: Abdomen soft, non-tender. Bowel sounds normal. No masses, organomegaly EXTREMITIES: Extremities normal. No deformities, edema, or skin discoloration. Good capillary refill. PULSES: Normal lower extremity pulses. NEURO: Gait normal. Reflexes normal and symmetric. Sensation grossly intact. X-RAYS: MRI lumbar 11/06/20: sp L 5-S1 FUSION T12-L1: Normal. L1-2: Mild disc height loss with diffuse disc bulge. No disc protrusion. Bilateral facet arthropathy. No central canal or neural foraminal stenosis. L2-3: Disc height loss with diffuse disc bulge. Bilateral facet arthropathy. No focal disc protrusion. No significant central canal or neural foraminal stenosis. L3-4: Disc height loss with diffuse disc bulge. No focal disc protrusion. Bilateral facet arthropathy and lig (more content not included)... Normal [facility] XR Spine Lumbar 4+ Views*on 03-16-2022 XR Spine Lumbar 4+ Views* COMPARISON: NONE FINDINGS: Status post L5-S1 discectomy, spacer placement and posterior fusion with transpedicular screws and vertical bars. There is severe joint space narrowing at L5-S1. The visualized bones are demineralized which is worrisome for osteoporosis, may consider bone densitometry examination. There is no acute fracture or subluxation. There is no loss of vertebral body height. There is preservation of the lordotic curvature of the lumbar spine with The remaining levels demonstrate mild intervertebral disc space narrowing. The SI joints are symmetric. The soft tissues are within normal limits. IMPRESSION: Status post discectomy and posterior fusion at L5-S1. There is mild spondylosis of the remaining levels. Report reported and signed by JAROD SALAS on 03/16/2022 1324 Normal [facility] CBC AUTO DIFFon 08-01-2018 Basophils (Bld) [#/Vol] 0.1 103/ul Normal 0.0-0.1 [facility] Comment on above: Performed By: #### C BC #### [facility] [address] [place] [id number] Nathan Effie Basophils/100 WBC (Bld) 1.1 % Normal 0.2-2.0 [facility] Comment on above: Performed By: #### C BC #### [facility] [address] [place] [address] Nathan Effie Eosinophils (Bld) [#/Vol] 0.2 103/ul Normal 0.0-0.7 [facility] Comment on above: Performed By: #### C BC #### [facility] [address] [place] [address] Nathan Effie Eosinophils/100 WBC (Bld) 3.1 % Normal 0.9-7.0 [facility] Comment on above: Performed By: #### C BC #### [facility] [address] [place], [place] [phone] Nathan Effie Erythrocyte distribution width (RBC) [Ratio] 13.2 % Normal 11.0-15.0 [facility] Comment on above: Performed By: #### C BC #### [facility] [address] [place], [place] [phone] Nathan Effie Hematocrit (Bld) [Volume fraction] 44.1 % Normal 42.0-54.0 [facility] Comment on above: Performed By: #### C BC #### [facility] [address] [place] [address] Nathan Effie Hemoglobin (Bld) [Mass/Vol] 15.0 g/dL Normal 14.0-18.0 [facility] Comment on above: Performed By: #### C BC #### [facility] [address] [id number] Nathan Effie IG # 0.02 10e3/ul Normal 0.00-0.[address] [facility] Comment on above: Performed By: #### C BC #### [facility] [address] [id number] Nathan Effie IG % 0.3 % Normal 0.0-0.[address] [facility] Comment on above: Performed By: #### C BC #### [facility] [address] [place], [place] [phone] Nathan Effie Lymphocytes (Bld) [#/Vol] 1.4 103/ul Normal 1.2-3.[address] [facility] Comment on above: Performed By: #### C BC #### [facility] [address] [place] [address] Nathan Effie Lymphocytes/100 WBC (Bld) 23.4 % Normal 20.5-60.[address] [facility] Comment on above: Performed By: #### C BC #### [facility] [address] [place], [place] [phone] Nathan Effie MANUAL DIFF REQ NO Normal [facility] Comment on above: Performed By: #### C BC #### [facility] [address] [place], [place] [phone] Nathan Effie MCH (RBC) [Entitic mass] 33.8 pg Normal 25.9-34.[address] [facility] Comment on above: Performed By: #### C BC #### [facility] [address] [place], [place] [phone] Nathan Effie MCHC (RBC) [Mass/Vol] 34.0 g/dL Normal 29.9-35.2 [facility] Comment on above: Performed By: #### C BC #### [facility] [address] [place], [place] [phone] Nathan Effie MCV (RBC) [Entitic vol] 99.3 fL Critically high 80.0-94.[address] [facility] Comment on above: Performed By: #### C BC #### [facility] [address], [place] [address] Nathan Effie Monocytes (Bld) [#/Vol] 0.7 103/ul Normal 0.3-0.[address] [facility] Comment on above: Performed By: #### C BC #### [facility] [address], [place] [address] [place] Effie Monocytes/100 WBC (Bld) 10.8 % Normal 1.7-12.[address] [facility] Comment on above: Performed By: #### C BC #### [facility] [address], [place] [address] Nathan Effie Neutrophils (Bld) [#/Vol] 3.8 103/ul Normal 1.4-6.[address] [facility] Comment on above: Performed By: #### C BC #### [facility] [address], [place] [address] Nathan Effie Neutrophils/100 WBC (Bld) 61.3 % Normal 43.0-75.[address] [facility] Comment on above: Performed By: #### C BC #### [facility] [address], [place] [address] Nathan Effie Platelet mean volume (Bld) [Entitic vol] 9.8 fL Normal 9.5-13.[address] [facility] Comment on above: Performed By: #### C BC #### [facility] [address], [place] [address] Nathan Effie Platelets (Bld) [#/Vol] 210 103/ul Normal 150-450 [facility] Comment on above: Performed By: #### C BC #### [facility] [address], [place] [address] Nathan Effie RBC (Bld) [#/Vol] 4.44 106/ul Critically low 4.70-6.10 [facility] Comment on above: Performed By: #### C BC #### [facility] [address], [place] [address] Nathan Effie WBC (Bld) [#/Vol] 6.1 103/ul Normal 4.0-11.0 [facility] Comment on above: Performed By: #### C BC #### [facility] [address] [id number] Nathan Effie PROF CHEM 8 (BAS METB)on Anion gap [Moles/Vol] 13.1 mmol/L Normal [facility] Comment on above: Performed By: #### B MP #### [facility] [address] [id number] Nathan Effie Calcium [Mass/Vol] 9.2 mg/dL Normal 8.4-10.2 [facility] Comment on above: Performed By: #### B MP #### [facility] [address] [address] Nathan Effie Chloride [Moles/Vol] 101 mmol/L Normal 98-[address] [facility] Comment on above: Performed By: #### B MP #### [facility] [address] [address] Nathan Effie CO2 [Moles/Vol] 27.1 mmol/L Normal 22.0-30.0 [facility] Comment on above: Performed By: #### B MP #### [facility] [address] [id number] Nathan Effie Creatinine [Mass/Vol] 0.85 mg/dL Normal 0.66-1.[address] [facility] Comment on above: Performed By: #### B MP #### [facility] [address] [address] Nathan Effie EGFR-AF TURKS AND CAICOS ISLANDER >60 Normal >=60 [facility] Comment on above: Performed By: #### B MP #### [facility] [address] [phone] Nathan Effie EGFR-NON AF TURKS AND CAICOS ISLANDER >60 Normal >=[address] [facility] Comment on above: Performed By: #### B MP #### [facility] [address] [address] Nathan Effie Glucose [Mass/Vol] 108 mg/dL Critically high 74-106 [facility] Comment on above: Performed By: #### B MP #### [facility] [address] [phone] Nathan Effie Potassium [Moles/Vol] 4.2 mmol/L Normal 3.4-5.[address] [facility] Comment on above: Performed By: #### B MP #### [facility] [address] [place], [place] [phone] Nathan Effie Sodium [Moles/Vol] 137 mmol/L Normal 137-145 [facility] Comment on above: Performed By: #### B MP #### [facility] [address] [place], [place] [phone] Nathan Effie Urea nitrogen [Mass/Vol] 13.0 mg/dL Normal 9.0-20.[address] [facility] Comment on above: Performed By: #### B MP #### [facility] [address] [place] [address] Nathan Effie Urea nitrogen/Creatinine [Mass ratio] 15.3 mg/mg Normal [facility] Comment on above: Performed By: #### B MP #### [facility] [address] [place], [place] [phone] Nathan Effie CBC AUTO DIFFon 06-02-2018 Basophils (Bld) [#/Vol] 0.1 103/ul Normal 0.0-0.[address] [facility] Comment on above: Performed By: #### C BC #### [facility] [address] [place], [place] [address] Nathan Effie Basophils/100 WBC (Bld) 0.9 % Normal 0.2-2.0 [facility] Comment on above: Performed By: #### C BC #### [facility] [address] [place], [place] [phone] Nathan Effie Eosinophils (Bld) [#/Vol] 0.1 103/ul Normal 0.0-0.7 [facility] Comment on above: Performed By: #### C BC #### [facility] [address] [place], [place] [address] Nathan Effie Eosinophils/100 WBC (Bld) 1.5 % Normal 0.9-7.0 [facility] Comment on above: Performed By: #### C BC #### [facility] [address] [phone] Nathan Effie Erythrocyte distribution width (RBC) [Ratio] 13.5 % Normal 11.0-15.[address] [facility] Comment on above: Performed By: #### C BC #### [facility] [address] [id number] Nathan Effie Hematocrit (Bld) [Volume fraction] 43.1 % Normal 42.0-54.[address] [facility] Comment on above: Performed By: #### C BC #### [facility] [address] [place], [place] [address] Nathan Effie Hemoglobin (Bld) [Mass/Vol] 14.3 g/dL Normal 14.0-18.[address] [facility] Comment on above: Performed By: #### C BC #### [facility] [address] [place] [address] Nathan Effie IG # 0.04 10e3/ul Critically high 0.00-0.03 [facility] Comment on above: Performed By: #### C BC #### [facility] [address] [place], [place] [address] Nathan Effie IG % 0.7 % Critically high 0.0-0.5 [facility] Comment on above: Performed By: #### C BC #### [facility] [address] [place], [place] [address] Nathan Effie Lymphocytes (Bld) [#/Vol] 1.2 103/ul Normal 1.2-3.8 [facility] Comment on above: Performed By: #### C BC #### [facility] [address] [place], [place] [address] Nathan Effie Lymphocytes/100 WBC (Bld) 21.3 % Normal 20.5-60.[address] [facility] Comment on above: Performed By: #### C BC #### [facility] [address] [place], [place] [phone] Nathan Effie MANUAL DIFF REQ NO Normal [facility] Comment on above: Performed By: #### C BC #### [facility] [address] [place], [place] [phone] Nathan Chou MCH (RBC) [Entitic mass] 33.6 pg Normal 25.9-34.0 [facility] Comment on above: Performed By: #### C BC #### [facility] [address] [place] [address] Nathan Chou MCHC (RBC) [Mass/Vol] 33.2 g/dL Normal 29.9-35.2 [facility] Comment on above: Performed By: #### C BC #### [facility] [address] [place] [address] Nathanroberto Chou MCV (RBC) [Entitic vol] 101.4 fL Critically high 80.0-94.0 [facility] Comment on above: Performed By: #### C BC #### [facility] [address] [place] [address] Nathan Effie Monocytes (Bld) [#/Vol] 0.7 103/ul Normal 0.3-0.8 [facility] Comment on above: Performed By: #### C BC #### [facility] [address] [place] [address] Nathan Effie Monocytes/100 WBC (Bld) 13.0 % Critically high 1.7-12.0 [facility] Comment on above: Performed By: #### C BC #### [facility] [address] [place] [address] Nathan Effie Neutrophils (Bld) [#/Vol] 3.4 103/ul Normal 1.4-6.5 [facility] Comment on above: Performed By: #### C BC #### [facility] [address] [place] [address] Nathan Effie Neutrophils/100 WBC (Bld) 62.6 % Normal 43.0-75.0 [facility] Comment on above: Performed By: #### C BC #### [facility] Laboratory [address] [place] [id number] Nathan Effie Platelet mean volume (Bld) [Entitic vol] 9.8 fL Normal 9.5-13.5 [facility] Comment on above: Performed By: #### C BC #### [facility] [address], [place] [address] Nathan Effie Platelets (Bld) [#/Vol] 192 103/ul Normal 150-[address] [facility] Comment on above: Performed By: #### C BC #### [facility] [address], [place] [address] Nathan Effie RBC (Bld) [#/Vol] 4.25 106/ul Critically low 4.70-6.10 [facility] Comment on above: Performed By: #### C BC #### [facility] [address], [place] [address] Nathan Effie WBC (Bld) [#/Vol] 5.4 103/ul Normal 4.0-11.0 [facility] Comment on above: Performed By: #### C BC #### [facility] [address] [place], [place] [id number] Natahn Effie PROF CHEM 8 (BAS METB)on Anion gap [Moles/Vol] 10.9 mmol/L Normal [facility] Comment on above: Performed By: #### B MP #### [facility] [address] [place], [place] [id number] Nathan Effie Calcium [Mass/Vol] 9.0 mg/dL Normal 8.4-10.2 [facility] Comment on above: Performed By: #### B MP #### [facility] [address] [place], [place] [id number] Nathan Effie Chloride [Moles/Vol] 100 mmol/L Normal 98-[address] [facility] Comment on above: Performed By: #### B MP #### [facility] [address] [place], [place] [id number] Nathan Effie CO2 [Moles/Vol] 27.9 mmol/L Normal 22.0-30.0 [facility] Comment on above: Performed By: #### B MP #### [facility] [address] [place], [place] [id number] Nathan Effie Creatinine [Mass/Vol] 0.95 mg/dL Normal 0.66-1.[address] [facility] Comment on above: Performed By: #### B MP #### [facility] [address] [place] [id number] Nathan Effie EGFR-AF TURKS AND CAICOS ISLANDER >60 Normal >=60 [facility] Comment on above: Performed By: #### B MP #### [facility] [address] [id number] Nathan Effie EGFR-NON AF TURKS AND CAICOS ISLANDER >60 Normal >=60 [facility] Comment on above: Performed By: #### B MP #### [facility] [address] [address] Nathan Effie Glucose [Mass/Vol] 92 mg/dL Normal 74-106 [facility] Comment on above: Performed By: #### B MP #### [facility] [address] [place] [address] Nathan Effie Potassium [Moles/Vol] 3.8 mmol/L Normal 3.4-5.[address] [facility] Comment on above: Performed By: #### B MP #### [facility] [address] [place] [address] Nathan Effie Sodium [Moles/Vol] 135 mmol/L Critically low 137-145 [facility] Comment on above: Performed By: #### B MP #### [facility] [address] [place] [address] Nathan Effie Urea nitrogen [Mass/Vol] 14.0 mg/dL Normal 9.0-20.[address] [facility] Comment on above: Performed By: #### B MP #### [facility] [address] [place] [address] Nathan Effie Urea nitrogen/Creatinine [Mass ratio] 14.7 mg/mg Normal [facility] Comment on above: Performed By: #### B MP #### [facility] [address] [place], [place] [id number] Nathan Effie PROTIMEon 06-02-2018 INR Coag (PPP) [Relative time] 0.97 {INR} Normal [facility] Comment on above: Performed By: #### P T, PTT #### [facility] [address] [place], [place] [id number] Nathan Chou PT Coag (PPP) [Time] 10.0 s Normal 9.0-11.[address] [facility] Comment on above: Performed By: #### P T, PTT #### [facility] [address] [place] [address] Nathanroberto Chou PT Coag (PPP) [Time] PLEASE NOTE: NORMAL RANGE CHANGE 11-08-2013 DUE TO REAGENT LOT CHANGE Normal [facility] Comment on above: Performed By: #### P T, PTT #### [facility] [address] [place] [address] Nathan Effie PT Coag (PPP) [Time] SEE BELOW Normal [facility] Comment on above: Result Comment: IRENE RED INR: 2.0 - 3.0 CONDITIONS NOT LISTED BELOW 2.5 - 3.5 FOR PROSTHETIC HEART VALVE REPLACEMENT 2.5 - 3.5 RECURRENT THROMBOSIS Performed By: #### P T, PTT #### [facility] [address] [place] [address] Nathan Chou PTTon 06-02-2018 aPTT Coag (Bld) [Time] PLEASE NOTE: NORM AL RANGE CHANGE 01-15-2015 DUE TO REAGENT LOT CHANGE [facility] Comment on above: Performed By: #### P T, PTT #### [facility] [address] [place] [address] Nathanroberto Chou aPTT Coag (Bld) [Time] 24.7 s Normal 22.3-36.2 [facility] Comment on above: Performed By: #### P T, PTT #### [facility] [address] [place] [address] Nathan Chou CONSULTATIONon 01-09-2018 CONSULTATION CONSULTATION PAIN MANAGEMENT Consultation Date: 01-09-18 HISTORY OF PRESENT ILLNESS: This is a 72 year-old male patient who comes to the pain clinic for low back as well as left-sided low and mid back pain as well as left leg pulling sensation. He rates the low back and mid back, as well as leg sensation an 8/10 which is an achy sensation. Activities that increase the pain are pushing, pulling, sitting, morning time, evening time, lifting. activity, physical functioning, sleep. Activities that decrease the pain are lying down, rest, body massage, meloxicam, tramadol, and Flexeril. On December 29, 2017 the patient had a #1 bilateral L3, L4, L5 medial branch block as well as left sacroiliac joint injection which afforded the patient 0% relief of his pain and symptoms to both the lumbar region as well as the left SI. The patient complains of left low back with radiation of the pain to the upper lumbar region. He is currently told to do stretching exercises of the right foot due to plantar fascitis as well as low back strengthening exercises and asked this provider if he should continue to do the exercises. I encouraged the patient to do exercises to both areas as the exercises are helpful for those certain areas to the left low back as well as right foot pain. He states that the left-sided low back pain has decreased since he has had a body massage. He states that the Flexeril 10 mg is helpful, however, this produces dizziness and a drunk feeling sensation. I discussed with the patient in great detail in the office today in regards to the #1 medial branch block was not to reduce his pain, however, diagnose the area. The patient was under the impression that the #1 injection was to get rid of his pain and not diagnose. After an in depth conversation in regards to the interventional therapy, the patient still stated that he had no relief from the lumbar and SI #1 injection. He denies any loss of bowel or bladder, injuries or falls. He denies any new medical condition since his last office visit. PHYSICAL EXAM: VITALS:BP 151/88 with a heart rate of 63. The patient is 6'2 , 112 kg. HEENT:Head is atraumatic, normocephalic. Facial symmetry is maintained. NECK:Supple without any overt lesions. Trachea is midline. HEART:Regular rate with no JVD noted. LUNGS:Normal expansion, with unlabored breathing, no audible wheezing. ABDOMEN:Soft, nondistended. BACK:Range of motion slightly guarded for flexion, extension, and rotation. Slight tenderness is noted along the extension, compression, direct palpation along the lumbar facets with the left greater than the right. Verito's is negative as is the compression test. Point tenderness is noted to the left paravertebral lumbar region without evidence of a trigger point or muscle spasticity. He denies any radiation of the left-sided low back pain into the gluteal, left hip, or left lower extremity. He denies any loss of bowel or bladder, paresthesias, and no paravertebral spasms are noted. EXTREMITIES:No pedal edema is noted. MUSCULOSKELETAL:Inta ct with no motor weaknesses. NEUROLOGICAL:The patient is neurologically intact to the lower extremities bilaterally. Patellar reflex 2/2 and Achilles reflex 2/2 are present bilaterally. PSYCHIATRIC:The patient is cooperative, alert and oriented x3, and appropriate for mood and affect. DIAGNOSES: 1. Left lumbar spasms. 2. Low back pain. 3. Lumbar spondylosis. PLAN: 1. Recommended 1/2 tablet of Flexeril to equal 5 mg due to the side effects at the 10 mg dosage. The patient is prescribed the Flexeril by Dr. Raymond. 2. The patient is to continue with the low back exercises as he states that the low back exercises as well as hip stretching exercises were helpful for the left-sided low back pain. 3. The patient is to continue with massage therapy as he states that massage therapy helps with the left-sided low back pain. 4. The patient is to followup with Dr. Raymond in regards to the left hip as he states when he follows up in Dr. Raymond's office and he manipulates the left hip, he states that his pain subsides. 5. I discussed with the patient in the office today with the left-sided low back, left lower leg pain which radiates to the left lateral thigh, that he may want to consider just being treated for the lumbar spasms as we did not have any relief from his pain after the #1 bilateral medial branch block. 6. The patient is to followup in the pain clinic in 1-2 months or on an as needed basis. 7. Again, discussed with the patient if his left hip pain resolves after following up with Dr. Raymond manipulating his left hip, I suggest following up with Dr. Raymond. 8. The patient is to call the pain clinic if we can assist him with any further interventional therapy before the 1-2 month followup visit. Dictated by Tiffanie Soto APRN [facility] Signed and Approved by: TIFFANIE SOTO 01/16/2018 16:23:00 Normal [facility] CREATININEon 12-08-2017 Creatinine [Mass/Vol] mg/dL Normal >=[address] [facility] Comment on above: Performed By: #### C ARELI #### [facility] [address], [place] [address] Nathan Chou Creatinine [Mass/Vol] 1.17 mg/dL Normal 0.66-1.[address] [facility] Comment on above: Performed By: #### C ARELI #### [facility] [address], [place] [address] [facility] [address] CON [address] [place] [address] Patient: DOMINICK CHIANG Exam Date: 12/08/2017 : 1945 Gender:M Ordering : MRS. RAS M[employer]ER [employer]TER-C Admission #: [id number] Family : Order #: [id number] CLICK HERE TO VIEW EXAM RADIOLOGY REPORT PROCEDURE: CT NECK SOFT TISSUE WITH CONTRAST COMPARISON: None. INDICATIONS: Acute dysphagia, throat pain/swelling TECHNIQUE: Axial, Coronal, and Sagittal CT images created with IV contrast. DOSE: 100 cc Omnipaque 300; 423mGycm FINDINGS: NASOPHARYNX: No asymmetry of the fossae of Rosenmuller and torus tubarius. ORAL CAVITY: No visible mass. OROPHARYNX: No asymmetry of the facial and lingual tonsils. HYPOPHARYNX: Mild soft tissue thickening within the right piriform sinus; inflammation versus artifact. LARYNX: No mass or asymmetry of the vocal cords. SINUSES: Small fluid level within the left maxillary sinus. NECK GLANDS: No visible abnormality of the parotid, submandibular, and thyroid glands. LYMPH NODES: No pathological-appeari ng or enlarged lymph nodes. VASCULATURE: Moderate atherosclerotic narrowing of the carotid bulbs, right greater than left. BONES: Multilevel marked spondylosis of the left facet joints. Moderate degenerative disc disease L3-4, L4-5. OTHER: No additional imaging findings. CONCLUSION: 1. No appreciable soft tissue swelling or abscess of the oropharynx. Questionable soft tissue thickening within the right piriform sinus; incidental versus inflammation. 2. Left maxillary mild acute sinusitis. 3. Multilevel degenerative changes of the cervical spine. Dictated by: Marisol Rahman M.D. on 12/08/2017 at 16:20 Approved by: Marisol Rahman M.D. on 12/08/2017 at 16:29 Normal [facility] CONSULTATIONon 11-15-2017 CONSULTATION CONSULTATION PAIN MANAGEMENT Consultation Date: 11-15-17 CHIEF COMPLAINT: Low back pain. HISTORY OF PRESENT ILLNESS: Today in the office I saw Dominick Chiang. This is a very pleasant 72 year-old gentleman who is referred to us by Dr. Raymond. The patient has chronic low back pain to the point where he has been inactive all summer. He has attended Physical Therapy, he finds this helpful, however, he seems to regress back to the baseline pain. Currently he's having a 2/10 pain, a dull throbbing sensation. ADL: Sitting too long aggravates the pain. Standing and walking aggravates the pain as does climbing stairs. Pain is mitigated by massage. PAST MEDICAL HISTORY / PAST SURGICAL HISTORY and REVIEW OF SYSTEMS are noted on the chart along with the MEDICATIONS LIST, which currently the patient is taking tramadol 50 mg and meloxicam 7.5 mg on and intermittent basis. X-ray of the lumbar spine report is noted onto the chart. PHYSICAL EXAM: GENERAL:This is a pleasant, cooperative gentleman who does not appear to be in any acute distress. VITALS:Stable at 139/84 with a heart rate of 79. HEAD:Atraumatic, normocephalic. NECK:Supple without any overt lesion. HEART:Regular rate, normal rhythm. LUNGS:Normal expansion, no audible wheezing. ABDOMEN:Soft, nondistended. The patient is 6'2 , weight 112 kg. BACK:Tenderness is noted along the posterior elements bilaterally upon extension, compression more so on the left hand side. The left hand side the sacroiliac joint is also tender upon palpation. Compression test is positive as is the Verito's on the left hand side. EXTREMITIES:No pedal edema is noted. Global atrophy of the muscles are noted. NEUROLOGICALLY:The patient is intact. PSYCHIATRICALLY:Affe ct is appropriate. IMPRESSION: 1. Low back pain. 2. Lumbar spondylosis. 3. Lumbar anterolisthesis. 4. Left sacroiliitis. 5. Decreased muscle bulk. 6. Muscle atrophy. PLAN: We will schedule the patient for a lumbar medial branch block under fluoroscopy bilaterally at the level of L3, 4, 5 and the left sacroiliac joint. The patient understands and would like to proceed. [facility] Signed and Approved by: DR FABIENNE QUINTANILLA 11/17/2017 13:51:[address] [facility] Vital Signs Date Time Vital Sign Value Performing Clinician Facility 11-10-2023 11:13-0400 Body height 187.96 cm II Neo Raymond Work Phone: [facility] 11-10-2023 11:13-0400 Body mass index (BMI) [Ratio] 31.7 kg/m2 II Neo Raymond Work Phone: [facility] 11-10-2023 11:13-0400 Body weight 112.26 kg II Neo Raymond Work Phone: [facility] 10-25-2023 13:49-0400 Blood Pressure Location [facility] 10-25-2023 13:49-0400 Diastolic blood pressure 94 mm[Hg] [place] [facility] 10-25-2023 13:49-0400 Heart rate 86 /min [place] [facility] 10-25-2023 13:49-0400 Respiratory rate 16 /min [place] [facility] 10-25-2023 13:49-0400 Systolic blood pressure 138 mm[Hg] [place] [facility] 10-16-2023 11:46-0400 Body height 187.96 cm II Neo Raymond Work Phone: [facility] 10-16-2023 11:46-0400 Body mass index (BMI) [Ratio] 32.3 kg/m2 II Neo Raymond Work Phone: [facility] 10-16-2023 11:46-0400 Body temperature 98 [degF] II Neo Raymond Work Phone: [facility] 10-16-2023 11:46-0400 Body weight 114.41 kg II Neo Raymond Work Phone: [facility] 10-16-2023 11:46-0400 Diastolic blood pressure 70 mm[Hg] II Neo Raymond Work Phone: [facility] 10-16-2023 11:46-0400 Heart rate 95 /min II Neo Raymond Work Phone: [facility] 10-16-2023 11:46-0400 Respiratory rate 16 /min II Neo Raymond Work Phone: [facility] 10-16-2023 11:46-0400 SaO2% (BldA) [Mass fraction] 97 % II Neo Raymond Work Phone: [facility] 10-16-2023 11:46-0400 Systolic blood pressure 115 mm[Hg] II Neo Raymond Work Phone: [facility] 10-06-2023 10:45-0400 Body weight 113.39 kg II Neo Raymond Work Phone: [facility] 10-03-2023 10:55-0400 Body height 187.96 cm II Neo Raymond Work Phone: [facility] 10-03-2023 10:55-0400 Body mass index (BMI) [Ratio] 32.3 kg/m2 II Neo Raymond Work Phone: [facility] 10-03-2023 10:55-0400 Body temperature 97.8 [degF] II Neo Raymond Work Phone: [facility] 10-03-2023 10:55-0400 Body weight 114.3 kg II Neo Raymond Work Phone: [facility] 10-03-2023 10:55-0400 Heart rate 95 /min II Neo Raymond Work Phone: [facility] 10-03-2023 10:55-0400 Respiratory rate 18 /min II Neo Raymond Work Phone: [facility] 10-03-2023 10:55-0400 SaO2% (BldA) [Mass fraction] 97 % II Neo Raymond Work Phone: [facility] 08-16-2023 11:05-0400 Diastolic blood pressure 78 mm[Hg] II Neo Raymond Work Phone: [facility] 08-16-2023 11:05-0400 Heart rate 83 /min II Neo Raymond Work Phone: [facility] 08-16-2023 11:05-0400 Respiratory rate 18 /min II Neo Raymond Work Phone: [facility] 08-16-2023 11:05-0400 SaO2% (BldA) [Mass fraction] 97 % II Neo Raymond Work Phone: [facility] 08-16-2023 11:05-0400 Systolic blood pressure 108 mm[Hg] II Neo Raymond Work Phone: [facility] 08-16-2023 10:20-0400 Body height 187.96 cm II Noe Raymond Work Phone: [facility] 08-16-2023 10:20-0400 Body weight 113.39 kg II Neo Raymond Work Phone: [facility] 06-15-2023 10:54-0400 Body height 185.42 cm II Neo Raymond Work Phone: [facility] 06-15-2023 10:54-0400 Body mass index (BMI) [Ratio] 31.6 kg/m2 II Neo Raymond Work Phone: [facility] 06-15-2023 10:54-0400 Body weight 108.86 kg II Neo Raymond Work Phone: [facility] 06-07-2023 10:15-0400 Diastolic blood pressure 80 mm[Hg] II Neo Raymond Work Phone: [facility] 06-07-2023 10:15-0400 Heart rate 89 /min II Neo Raymond Work Phone: [facility] 06-07-2023 10:15-0400 Respiratory rate 16 /min II Neo Raymond Work Phone: [facility] 06-07-2023 10:15-0400 SaO2% (BldA) [Mass fraction] 97 % II Neo Raymond Work Phone: [facility] 06-07-2023 10:15-0400 Systolic blood pressure 119 mm[Hg] II Neo Raymond Work Phone: [facility] 06-07-2023 09:30-0400 Body height 185.42 cm II Neo Raymond Work Phone: [facility] 06-07-2023 09:30-0400 Body weight 108.86 kg II Neo Raymond Work Phone: [facility] 05-10-2023 10:50-0400 Diastolic blood pressure 84 mm[Hg] II Neo Raymond Work Phone: [facility] 05-10-2023 10:50-0400 Heart rate 92 /min II Neo Raymond Work Phone: [facility] 05-10-2023 10:50-0400 Respiratory rate 16 /min II Neo Raymond Work Phone: [facility] 05-10-2023 10:50-0400 SaO2% (BldA) [Mass fraction] 95 % II Neo Raymond Work Phone: [facility] 05-10-2023 10:50-0400 Systolic blood pressure 132 mm[Hg] II Neo Raymond Work Phone: [facility] 05-10-2023 09:23-0400 Body height 185.42 cm II Neo Raymond Work Phone: [facility] 05-10-2023 09:23-0400 Body weight 108.86 kg II Neo Raymond Work Phone: [facility] 05-05-2023 11:38-0400 Body height 185.42 cm II Neo Raymond Work Phone: [facility] 03-29-2023 10:45-0500 Diastolic blood pressure 60 mm[Hg] II Neo Raymond Work Phone: [facility] 03-29-2023 10:45-0500 Heart rate 92 /min II Neo Raymond Work Phone: [facility] 03-29-2023 10:45-0500 Respiratory rate 18 /min II Neo Raymond Work Phone: [facility] 03-29-2023 10:45-0500 SaO2% (BldA) [Mass fraction] 97 % II Neo Raymond Work Phone: [facility] 03-29-2023 10:45-0500 Systolic blood pressure 112 mm[Hg] II Neo Raymond Work Phone: [facility] 03-29-2023 10:08-0500 Body height 185.42 cm II Neo Raymond Work Phone: [facility] 03-29-2023 10:08-0500 Body weight 111.13 kg II Neo Raymond Work Phone: [facility] 03-10-2023 14:00-0500 Body height 180.34 cm Zacarias Wylie Other [facility] 02-10-2023 10:40-0500 Body height 180.34 cm Janes Jean Other [facility] Other 02-10-2023 10:40-0500 Body mass index (BMI) [Ratio] 35.56 kg/m2 Janes Jean Other [facility] Other 02-10-2023 10:40-0500 Body weight 115.67 kg Janes Jean Other [facility] Other 01-11-2023 10:40-0500 Body height 180.34 cm Elsie Vazquez Other [facility] Other 01-11-2023 10:40-0500 Body mass index (BMI) [Ratio] 36.26 kg/m2 Elsie Vazquez Other [facility] Other 01-11-2023 10:40-0500 Body weight 117.94 kg Elsie Vazquez Other [facility] Other 01-06-2023 14:34-0500 Body height 187.96 cm II Neo Raymond Work Phone: [facility] 01-06-2023 14:34-0500 Body weight 113.39 kg II Neo Raymond Work Phone: [facility] 11-30-2022 14:40-0400 Body height 180.34 cm Elsie Vazquez Other [facility] Other 11-30-2022 14:40-0400 Body mass index (BMI) [Ratio] 36.68 kg/m2 Elsie Pieceable Other [facility] Other 11-30-2022 14:40-0400 Body weight 119.3 kg Elsie Vazquez Other [facility] Other 11-30-2022 14:40-0400 Diastolic blood pressure 78 mm[Hg] ElsieClearKarma Other [facility] Other 11-30-2022 14:40-0400 Respiratory rate 18 /min ElsieClearKarma Other [facility] Other 11-30-2022 14:40-0400 SaO2% (BldA) [Mass fraction] 97 % Elsie Vazquez Other [facility] Other 11-30-2022 14:40-0400 Systolic blood pressure 132 mm[Hg] Elsie Vazquez Other [facility] Other 11-30-2022 13:40-0400 Body height 180.34 cm ElsieClearKarma Other [facility] Other 11-30-2022 13:40-0400 Body mass index (BMI) [Ratio] 36.68 kg/m2 ElsieIRI Other [facility] Other 11-30-2022 13:40-0400 Body weight 119.3 kg Elsie Vazquez Other [facility] Other 11-30-2022 13:40-0400 Diastolic blood pressure 78 mm[Hg] Elsie Vazquez Other [facility] Other 11-30-2022 13:40-0400 Respiratory rate 18 /min ElsieClearKarma Other [facility] Other 11-30-2022 13:40-0400 SaO2% (BldA) [Mass fraction] 97 % Elsie Vazquez Other [facility] Other 11-30-2022 13:40-0400 Systolic blood pressure 132 mm[Hg] Elsie Vazquez Other [facility] Other 08-10-2022 12:53-0400 Blood Pressure Location Albert [place] 08-10-2022 12:53-0400 Diastolic blood pressure 96 mm[Hg] Albert [place] 08-10-2022 12:53-0400 Heart rate 89 /min [place] [facility] 08-10-2022 12:53-0400 Systolic blood pressure 148 mm[Hg] [place] [facility] 07-21-2022 13:51-0400 Body height 188 cm Elsie Shrestha [employer] Work Phone: [facility] 07-21-2022 13:51-0400 Heart rate 70 /min Elsie Shrestha [employer] Work Phone: [facility] 07-21-2022 13:51-0400 SaO2% (BldA) [Mass fraction] 98 % Elsie Shrestha [employer]INERY [employer] Work Phone: [facility] 07-01-2022 13:07-0400 Heart rate 59 /min Christal Apple MD Work Phone: [facility] 07-01-2022 13:07-0400 SaO2% (BldA) [Mass fraction] 97 % Christal Apple MD Work Phone: [facility] 12-15-2021 13:46-0400 Blood Pressure Location CARIN LETTY [facility] 12-15-2021 13:46-0400 Diastolic blood pressure 72 mm[Hg] CARIN SAENZ [facility] 12-15-2021 13:46-0400 Heart rate 75 /min CARIN LETTY [facility] 12-15-2021 13:46-0400 Systolic blood pressure 111 mm[Hg] CARIN LETTY [facility] 11-05-2021 14:45-0400 Body height 180.34 cm Abdoulaye Iyer Other [facility] Other 11-05-2021 14:45-0400 Body mass index (BMI) [Ratio] 34.17 kg/m2 Abdoulaye Iyer Other [facility] Other 11-05-2021 14:45-0400 Body weight 111.13 kg Abdoulaye Hernadezack Other [facility] Other 08-18-2021 11:00-0400 Blood Pressure Location Flavio Chiang Jr. [facility] 08-18-2021 11:00-0400 Diastolic blood pressure 77 mm[Hg] Flavio Chiang Jr. [facility] 08-18-2021 11:00-0400 Heart rate 82 /min Flavio Chiang Jr. [facility] 08-18-2021 11:00-0400 Respiratory rate 16 /min Flavio Chiang Jr. [facility] 08-18-2021 11:00-0400 Systolic blood pressure 109 mm[Hg] Flavio Chiang Jr. [facility] 02-24-2021 16:20-0500 Body height 180.34 cm Janes Jean Other [facility] Other 02-24-2021 16:20-0500 Body mass index (BMI) [Ratio] 34.17 kg/m2 Janes Jean Other [facility] Other 02-24-2021 16:20-0500 Body weight 111.13 kg Janes Jean Other [facility] Other Encounters Encounter Date Encounter Type Care Provider Facility Start: 12-02-2023 ambulatory Albert Doni ty:[facility] Start: 11-24-2023 ambulatory Albert Doni ty:[id number] Start: 11-10-2023 End: 11-10-2023 ambulatory II Neo Raymond Work Phone: [facility] Work Phone: Start: 11-10-2023 End: 11-10-2023 Patient encounter procedure II Neo Raymond Work Phone: [facility] Work Phone: Start: 10-31-2023 End: 10-31-2023 ambulatory II Neo Raymond Work Phone: [facility] Work Phone: Start: 10-31-2023 End: 10-31-2023 Patient encounter procedure II Neo Raymond Work Phone: [facility] Work Phone: Start: 10-25-2023 End: 10-25-2023 ambulatory Albert [place] Facility:[facility] Start: 10-25-2023 End: 10-25-2023 Patient encounter procedure Albert MO [facility] Start: 10-17-2023 End: 10-17-2023 ambulatory II Neo Raymond Work Phone: [facility] Work Phone: Start: 10-17-2023 End: 10-17-2023 Patient encounter procedure II Neo Raymond Work Phone: [facility] Work Phone: Start: 10-17-2023 Non-patient / Non-visit II Dario Raymond Work Phone: [facility] Work Phone: Start: 10-16-2023 End: 10-16-2023 ambulatory II Neo Raymond Work Phone: [facility] Work Phone: Start: 10-16-2023 End: 10-16-2023 Patient encounter procedure II Neo Raymond Work Phone: [facility] Work Phone: Start: 10-10-2023 Non-patient / Non-visit II Dario Raymond Work Phone: [facility] Work Phone: Start: 10-06-2023 End: 10-06-2023 ambulatory II Neo Raymond Work Phone: [facility] Work Phone: Start: 10-06-2023 End: 10-06-2023 Patient encounter procedure II Neo Raymond Work Phone: [facility] Work Phone: Start: 10-03-2023 End: 10-03-2023 ambulatory II Neo Raymond Work Phone: [facility] Work Phone: Start: 10-03-2023 End: 10-03-2023 Patient encounter procedure II Neo Raymond Work Phone: [facility] Work Phone: Start: 09-05-2023 End: 09-05-2023 ambulatory II Neo Raymond Work Phone: [facility] Work Phone: Start: 09-05-2023 End: 09-05-2023 Patient encounter procedure II Neo Raymond Work Phone: [facility] Work Phone: Start: 08-24-2023 End: 08-24-2023 ambulatory DASH Howard GLENNA Not Available Start: 08-16-2023 Non-patient / Non-visit II Dario Raymond Work Phone: [facility] Work Phone: Start: 08-16-2023 End: 08-16-2023 Admission to same day surgery center II Neo Raymond Work Phone: [facility] Work Phone: Start: 08-16-2023 End: 08-16-2023 ambulatory II Neo Raymond Work Phone: [facility] Work Phone: Start: 08-03-2023 End: 08-03-2023 ambulatory II Neo Raymond Work Phone: [facility] Work Phone: Start: 08-03-2023 End: 08-03-2023 Patient encounter procedure II Neo Raymond Work Phone: [facility] Work Phone: Start: 07-25-2023 End: 08-22-2023 ambulatory ZACARIAS Mcdonough [facility] Start: 06-29-2023 End: 06-29-2023 ambulatory [facility] Start: 06-17-2023 End: 06-17-2023 ambulatory [facility] Start: 06-15-2023 End: 07-23-2023 ambulatory ZACARIAS Mcdonough [facility] Start: 06-15-2023 End: 06-15-2023 ambulatory II Neo Raymond Work Phone: [facility] Work Phone: Start: 06-15-2023 End: 06-15-2023 Patient encounter procedure II Neo Raymond Work Phone: [facility] Work Phone: Start: 06-09-2023 End: 06-09-2023 ambulatory [facility] Start: 06-07-2023 Non-patient / Non-visit II Dario Raymond Work Phone: [facility] Work Phone: Start: 06-07-2023 End: 06-07-2023 Admission to same day surgery center II Neo Raymond Work Phone: [facility] Work Phone: Start: 06-07-2023 End: 06-07-2023 ambulatory II Neo Raymond Work Phone: [facility] Work Phone: Start: 05-18-2023 End: 05-18-2023 ambulatory II Neo Raymond Work Phone: [facility] Work Phone: Start: 05-18-2023 End: 05-18-2023 Patient encounter procedure II Neo Raymond Work Phone: [facility] Work Phone: Start: 05-11-2023 End: 05-11-2023 ambulatory DASH MANZANARES Not Available Start: 05-10-2023 Non-patient / Non-visit II Dario Raymond Work Phone: [facility] Work Phone: Start: 05-10-2023 End: 05-10-2023 Admission to same day surgery center II Neo Raymond Work Phone: [facility] Work Phone: Start: 05-10-2023 End: 05-10-2023 ambulatory II Neo Raymond Work Phone: [facility] Work Phone: Start: 05-05-2023 End: 05-05-2023 ambulatory II Neo Raymond Work Phone: [facility] Work Phone: Start: 05-05-2023 End: 05-05-2023 Patient encounter procedure II Neo Raymond Work Phone: [facility] Work Phone: Start: 05-03-2023 End: 05-03-2023 Patient encounter procedure II Neo Raymond Work Phone: [facility] Work Phone: Start: 03-29-2023 (Procedure) Short Zacarias Wylie [facility] Start: 03-29-2023 End: 03-29-2023 Admission to same day surgery center II Neo Raymond Work Phone: [facility] Work Phone: Start: 03-29-2023 End: 03-29-2023 ambulatory II Neo Raymond Work Phone: [facility] Work Phone: Start: 03-15-2023 End: 03-15-2023 Departed Referred II Neo Raymond Work Phone: [facility] Work Phone: Start: 03-15-2023 End: 03-15-2023 ambulatory Zacarias Wylie [facility] Other Start: 03-15-2023 Telephone encounter Zacarias Wylie [facility] Start: 03-10-2023 End: 03-10-2023 ambulatory Zacarias Wylie Other [facility] [employer] Other Start: 03-10-2023 Office outpatient ne w 45 minutes Zacarias Wylie [facility] [place] Start: 03-10-2023 End: 03-10-2023 Patient encounter procedure II Neo Raymond Work Phone: [facility]- Start: 03-09-2023 End: 03-09-2023 ambulatory NEO RAYMOND Not Available Start: 03-07-2023 End: 03-07-2023 ambulatory Albert [place] Facility:[facility] Start: 03-07-2023 End: 03-07-2023 Patient encounter procedure Albert R CHEPE [facility] Start: 03-02-2023 End: 03-02-2023 ambulatory NEO Echeverria RAYMOND [facility] Start: 03-01-2023 End: 03-01-2023 ambulatory DASH MANZANARES Not Available Start: 02-25-2023 End: 02-25-2023 ambulatory NEO Jacki RAYMOND [facility] Start: 02-17-2023 End: 02-17-2023 ambulatory NEO RAYMOND Not Available Start: 02-10-2023 End: 02-10-2023 ambulatory Janes Jean Other [facility] Other Start: 02-10-2023 Office outpatient vi sit 15 minutes Janes Jean [facility] [place] [facility] Start: 02-10-2023 End: 02-10-2023 Patient encounter procedure II Neo Raymond Work Phone: [facility] Work Phone: Start: 02-07-2023 End: 02-07-2023 ambulatory [facility] Start: 01-28-2023 End: 01-28-2023 ambulatory NEO B RAYMOND Not Available Start: 01-21-2023 End: 02-21-2023 ambulatory ELSIE SHRESTHA [facility] Start: 01-19-2023 End: 01-19-2023 ambulatory NEO RAYMOND Not Available Start: 01-11-2023 End: 01-11-2023 ambulatory Elsie Vazquez Other [facility] Other Start: 01-11-2023 Office outpatient vi sit 25 minutes Elsie Vazquez [facility] [place] [facility] Start: 01-11-2023 End: 01-11-2023 Patient encounter procedure II Neo Raymond Work Phone: [facility] Work Phone: Start: 01-06-2023 End: 01-06-2023 Patient encounter procedure II Neo Raymond Work Phone: [facility] [place] Work Phone: Start: 01-06-2023 End: 01-06-2023 ambulatory II Neo Raymond Work Phone: [facility] Work Phone: Start: 11-30-2022 End: 11-30-2022 Patient encounter procedure II Neo Raymond Work Phone: [facility] [place] Work Phone: Start: 11-30-2022 End: 11-30-2022 ambulatory II Neo Raymond Work Phone: [facility] Work Phone: Start: 11-30-2022 Office outpatient vi sit 25 minutes Elsie Vazquez [facility] [place] [facility] Start: 11-18-2022 Telephone encounter Elsie Shrestha APRN.REFINERY [employer] Work Phone: Pain Management Comment on above: Patient Update Start: 11-16-2022 End: 11-16-2022 ambulatory ELSIE SHRESTHA Facility:[facility] Start: 11-10-2022 Telephone encounter Elsie Shrestha FERMENTER CHAMPAGNE.REFINERY [employer]ATOR [employer] Work Phone: Pain Management Start: 10-11-2022 Telephone encounter Christal Apple MD Work Phone: Pain Management Comment on above: Pain Procedure Respo nse & follow up (Caudal epidural steroid injection ); Post Op Start: 09-20-2022 Telephone encounter Elsie Shrestha APRN.REFINERY [employer] Work Phone: Pain Management Comment on above: Patient Question; Sc hedule Injection Start: 09-14-2022 End: 09-14-2022 ambulatory ELSIE SHRESTHA Facility:[facility] Start: 08-20-2022 End: 08-20-2022 ambulatory CHRISTAL APPEL Facility:[facility] Start: 08-13-2022 Telephone encounter Elsie Shrestha APRN.REFINERY [employer] Work Phone: Pain Management Start: 08-10-2022 End: 08-10-2022 Lab Drop off Albert Wang [place] [facility] Start: 08-10-2022 End: 08-10-2022 Patient encounter procedure Albert MO [facility] Start: 08-06-2022 End: 08-06-2022 ambulatory Sabina Lapponi RT(R) Radiology Comment on above: Radiology MRI Start: 08-06-2022 Patient encounter procedure Sabina Lapponi RT(R) [facility] [place] Start: 08-06-2022 End: 08-06-2022 Subsequent hospital visit by physician Mri [facility] (1.5t) Work Phone: Radiology Comment on above: Abnormality of gait [R26.9] Start: 07-22-2022 Telephone encounter Christal Apple MD Work Phone: Ambulatory Surgery Comment on above: Schedule Injection Start: 07-21-2022 End: 07-21-2022 ambulatory ELSIE SHRESTHA Facility:[facility] Start: 07-21-2022 End: 07-21-2022 Office outpatient visit 25 minutes Elsie Shrestha [employer].REFINERY [employer]ATOR [employer] Work Phone: Pain Management Comment on above: Abnormality of gait; Cervical disc disorder with radiculopathy; History of lumbar fusion; Chronic midline low back pain with sciatica, sciatica laterality unspecified Start: 07-13-2022 End: 07-13-2022 ambulatory CHRISTAL APPLE Facility:[facility] Start: 07-13-2022 End: 07-13-2022 Subsequent hospital visit by physician Ct [facility] Work Phone: Radiology Comment on above: Chronic midline low back pain with sciatica, sciatica laterality unspecified [M54.40, G89.29] Start: 07-01-2022 End: 07-01-2022 ambulatory CHRISTAL APPLE Facility:[facility] Start: 07-01-2022 End: 07-01-2022 Patient encounter procedure Christal Apple MD Work Phone: Pain Management Comment on above: Chronic midline low back pain with sciatica, sciatica laterality unspecified (Primary Dx); History of lumbar fusion; Facet arthropathy, cervical; Abnormality of gait Start: 02-24-2022 End: 02-24-2022 Patient encounter procedure CARIN SAENZ [facility] Start: 12-15-2021 End: 12-15-2021 Patient encounter procedure CARIN SAENZ [facility] Start: 12-08-2021 End: 12-08-2021 ambulatory Abdoulaye Iyer Other [facility] Other Start: 12-08-2021 Telephone encounter Abdoulaye Mclain [facility] Start: 11-05-2021 End: 11-05-2021 ambulatory Abdoulaye Iyer Other [facility] Other Start: 11-05-2021 Office outpatient vi sit 15 minutes Abdoulaye Iyer [facility] Start: 10-08-2021 End: 10-08-2021 Patient encounter procedure Flavio Chiang Jr. [facility] Start: 08-18-2021 End: 08-18-2021 Patient encounter procedure Flavio Chiang Jr. [facility] Start: 08-12-2021 End: 08-12-2021 ambulatory Abdoulaye Iyer Other [facility] [employer] Other Start: 08-12-2021 Telephone encounter Abdoulaye Mclain [facility] Start: 02-24-2021 End: 02-24-2021 ambulatory Janes Jean Other [facility] [employer] Other Start: 02-24-2021 Office outpatient vi sit 15 minutes Janes Jean [facility] [place] [facility] Start: 08-30-2018 End: 08-30-2018 Patient encounter procedure FLAVIO L АНДРЕЙ [place] Facility:[facility] Start: 08-16-2018 End: 08-16-2018 Patient encounter procedure FLAVIO L CHIANG JR Facility:[facility] Start: 08-10-2018 Encounter for preprocedural laboratory examination [facility] Start: 08-01-2018 End: 08-02-2018 Patient encounter procedure FLAVIO L CHIANG JR Facility:[facility] Start: 06-14-2018 End: 06-14-2018 Patient encounter procedure FLAVIO L CHIANG JR Facility:[facility] Start: 06-04-2018 Encounter for preprocedural cardiovascular examination [facility] Start: 06-02-2018 End: 06-03-2018 Patient encounter procedure FLAVIO L CHIANG JR Facility:[facility] Start: 04-24-2018 Patient encounter procedure NEO RAYMOND Facility:[facility] Start: 01-09-2018 End: 01-10-2018 Patient encounter procedure FABIENNE S QUINTANILLA Facility:[facility] Start: 12-29-2017 End: 12-29-2017 Patient encounter procedure FABIENNE S QUINTANILLA Facility:[facility] Start: 12-08-2017 End: 12-09-2017 Patient encounter procedure NEO RAYMOND Facility:[facility] Start: 11-15-2017 End: 11-16-2017 Patient encounter procedure FABIENNE S QUINTANILLA Facility:[facility] Encounter for preprocedural laboratory examination [facility] Procedures Date Procedure Procedure Detail Performing Clinician Start: 10-25-2023 Flexible cystoscopy Tammie MO Start: 08-16-2023 Injection of local anesthetic into sacroiliac joint II Neo Raymond Work Phone: Start: 06-09-2023 Follow-up visit Follow-up MEY GASTELUM Start: 06-07-2023 Local anesthetic sac ral epidural block II Neo Raymond Work Phone: Start: 05-10-2023 Injection of spinal epidural space II Neo Raymond Work Phone: Start: 03-29-2023 Injection of local anesthetic into sacroiliac joint II Neo Raymond Work Phone: Start: 01-06-2023 MRI of lumbar spine with contrast II Neo Raymond Work Phone: Start: 11-30-2022 X-ray of lumbar spin e, six views including bending views II Neo Raymond Work Phone: Start: 08-10-2022 Cystoscopy Albert ROXANA STAnita Start: 08-06-2022 Mri spinal canal cer vical w/o contrast matrl Elsie Shrestha FERMENTER CHAMPAGNESkyREFINERY OPERATOR [employer] Work Phone: Start: 07-13-2022 Ct lumbar spine w/o contrast material Christal Apple MD Work Phone: Start: 10-08-2021 Injection of therape utic substance into bladder wall CARIN SAENZ Start: 03-05-2021 Injection of therape utic substance into bladder wall CARIN SAENZ Start: 10-02-2020 Cystoscopy Flavio henderson Jr. Start: 06-19-2020 Cystoscopy Flavio henderson Jr. Start: 06-19-2020 Transurethral insert ion of prostatic urethral lift implant CARIN SAENZ Start: 05-26-2020 Cystoscopy Flavio henderson Jr. Start: 12-10-2019 Cystoscopy Flavio henderson Jr. Start: 04-23-2019 Cystoscopy Flavio henderson Jr. Start: 12-25-2018 Cystoscopy Flavio henderson Jr. Start: 08-30-2018 Transurethral resect ion of bladder neoplasm Flavio Chiang Jr. Plan of Treatment Date Care Activity Detail Author Start: 11-10-2023 Patient referral [facility] Work Phone: Start: 10-23-2023 Covid-19 Vaccine () Covid-19 Vaccine () [facility] Start: 10-23-2023 Influenza vaccination Influenza Vacc ine (#1) [facility] Start: 09-05-2023 Patient referral [facility] Work Phone: Start: 08-16-2023 [facility] Start: 08-16-2023 Injection of local anesthetic into sacroiliac joint DH SI Injection (Left) [facility] Start: 08-11-2023 Urine microalbumin profile DTaP,Tdap,Td Vaccine (2 - Td or Tdap) [facility] Start: 06-07-2023 [facility] Start: 05-10-2023 [facility] Start: 03-29-2023 [facility] Start: 03-15-2023 Injection of local anesthetic into sacroiliac joint DH SI Injection (Bilateral) [facility] Start: 02-21-2023 Advance Directive Discussion Advance Directive Discussion [facility] Start: 10-22-2022 Influenza vaccination C [facility] Start: 06-25-2022 Diabetes Screening Diabetes Screenin g [facility] Start: 02-21-2022 ADVANCE DIRECTIVE DISCUSSION ADVANCE DIRECTIVE DISCUSSION [facility] Start: 02-21-2022 DEPRESSION ASSESSMENT DEPRESSION ASS ESSMENT [facility] Start: 09-26-2015 Pneumococcal Vaccine : 65+ (2 of 2 - PCV) Pneumococcal Vaccine: 65+ (2 of 2 - PCV) [facility] Start: 11-20-2013 Shingrix Vaccine (2 of 3) Shingrix Vaccine (2 of 3) [facility] Start: 09-23-2013 DIABETES SCREEN DIABETES SCREEN [facility] Start: 09-23-2013 Diabetes Screening Diabetes Screenin g [facility] Start: 2010 Pneumococcal Vaccine : 65+ (1 - PCV) Pneumococcal Vaccine: 65+ (1 - PCV) [facility] Start: 2010 PNEUMOCOCCAL: 65+ (1 - PCV) PNEUMOCOCCAL: 65+ (1 - PCV) [facility] Start: 2005 RSV Vaccine (1 - 1-d ose 60+ series) RSV Vaccine (1 - 1-dose 60+ series) [facility] Start: 1995 SHINGRIX VACCINE (1 of 2) SHINGRIX VACCINE (1 of 2) [facility] Start: 1964 Urine microalbumin profile [facility] Start: 1963 Anxiety Screening Anxiety Screening [facility] Start: 1963 Depression Screening Depression Scre ening [facility] Start: 1963 HEPATITIS C SCREENING HEPATITIS C [facility] Start: 1963 Hepatitis C screening Hepatitis C [facility] End: 07-31-2023 Ct lumbar spine w/o contrast material CT LUMBAR SPINE WO IVCON Radiology Routine Chronic midline low back pain with sciatica, sciatica laterality unspecified History of lumbar fusion 1 Occurrences starting 07/01/2022 until 07/31/2023 [facility] Work Phone: Comment on above: 1 Occurrences starti ng 07/01/2022 until 07/31/2023 End: 08-20-2023 Mri spinal canal cervical w/o contrast matrl MRI CERVICAL SPINE WO IVCON Radiology Routine Abnormality of gait Cervical disc disorder with radiculopathy 1 Occurrences starting 07/21/2022 until 08/20/2023 [facility] Work Phone: Comment on above: 1 Occurrences starti ng 07/21/2022 until 08/20/2023 Patient Education [facility] Work Phone: Patient referral [facility] Work Phone: End: 07-31-2023 Radex spine cervical 4 or 5 views XR CERV OTHER 4V AP/LAT/OBL Radiology Routine Facet arthropathy, cervical Abnormality of gait 1 Occurrences starting 07/01/2022 until 07/31/2023 [facility] Work Phone: Comment on above: 1 Occurrences starti ng 07/01/2022 until 07/31/2023 End: 07-31-2023 Radex spine lumbosacral minimum 4 views XR LUMBAR MOTION 4V AP/LAT/ FLEX/EXT Radiology Routine Chronic midline low back pain with sciatica, sciatica laterality unspecified History of lumbar fusion 1 Occurrences starting 07/01/2022 until 07/31/2023 [facility] Work Phone: Comment on above: 1 Occurrences starti ng 07/01/2022 until 07/31/2023 [facility] Immunizations Immunization Date Immunization Notes Care Provider Fa cili 01-11-2022 SARS-CoV-2 (COVID-19) [id number] CARIN SAENZ [facility] 01-07-2021 SARS-CoV-2 (COVID-19) mRNA BNT-162b2 vax CARIN SAENZ [facility] 05-01-2020 SARS-CoV-2 (COVID-19) mRNA-1273 vaccine Flavio Chiang Jr. [facility] Comment on above: Result Comment: wron g date 04-24-2020 SARS-CoV-2 (COVID-19) mRNA-1273 vaccine Flavio Chiang Jr. [facility] 04-17-2020 SARS-CoV-2 (COVID-19) mRNA BNT-162b2 astonx CARIN SAENZ [facility] Comment on above: Result Comment: 2021: [id number] 04-03-2020 SARS-CoV-2 (COVID-19) mRNA-1273 vaccine Flavio Chiang Jr. [facility] Comment on above: Result Comment: dupl icated 03-27-2020 SARS-CoV-2 (COVID-19) mRNA BNT-162b2 vax CARIN SAENZ [facility] Comment on above: Result Comment: 2021: [id number] 09-25-2014 pneumococcal polysaccharide vaccine, 23 valent Janes Jean Other [facility] 08-10-2013 tetanus toxoid, reduced diphtheria toxoid, and acellular pertussis vaccine, adsorbed Janes Jean Other [facility] NEGATED: Highlighted row has not occurred! 8 influenza, high dose seasonal, preservative-free Patient Objection Janes Jean Other [facility] Other Payers Date Payer Category Payer Self-pay [id number] 2016 Private Health Insurance [facility] AARP SUPPLEMENT [id number] 2016-Present [phone] [address] [place] [address] Indemnity [id number] 2010 Medicare MEDICARE MEDICAR E A AND B [id number] 2010-Present [phone] [address] [address] [place] [address] Medicare [id number] 1959 Medicare [id number] 1959 Medicare [id number] 1959 Unknown [id number] 1945 Unknown [id number] 2.16.840.1.362680.3.579.2 .593 1945 Unknown [id number] 2.16.840.1.906290.3.579.2 .593 1945 Unknown [id number] 2.16.840.1.531889.3.579.2 .593 1945 Unknown [id number] 2.16.840.1.424351.3.579.2 .593 1945 Unknown [id number] 2.16.840.1.679226.3.579.2 .593 1945 Unknown [id number] 2.16.840.1.067981.3.579.2 .593 1945 Unknown [id number] 2.16.840.1.156149.3.579.2 .593 1945 Unknown [id number] 2.16.840.1.416791.3.579.2 .593 1945 Unknown [id number] 2.16.840.1.441199.3.579.2 .593 1945 Unknown [id number] 2.16.840.1.405008.3.579.2 .593 1945 Unknown [id number] 2.16.840.1.431869.3.579.2 .1286 1945 Unknown [id number] 2.16.840.1.360348.3.579.2 .1286 1945 Unknown [id number] 2.16.840.1.853598.3.579.2 .128 1945 Unknown [id number] 2.16.840.1.476466.3.579.2 .1286 1945 Unknown [id number] 2.16.840.1.573751.3.579.2 .128 1945 Unknown [id number] 2.16.840.1.533108.3.579.2 .1286 1945 Unknown [id number] 2.16.840.1.299160.3.579.2 .1286 1945 Unknown [id number] 2.16.840.1.304886.3.579.2 .1286 1945 Unknown [id number] 2.16.840.1.004015.3.579.2 .1286 1945 Unknown [id number] 2.16.840.1.019007.3.579.2 .1259 1945 Unknown [id number] 2.16.840.1.528348.3.579.2 .1259 1945 Unknown [id number] 2.16.840.1.571832.3.579.2 .1259 1945 Unknown [id number] 2.16.840.1.606087.3.579.2 .1259 1945 Unknown [id number] 2.16.840.1.638793.3.579.2 .125 1945 Unknown [id number] 2.16.840.1.357559.3.579.2 .1259 1945 Unknown [id number] 2.16.840.1.671193.3.579.2 .1259 1945 Unknown [id number] 2.16.840.1.045713.3.579.2 .727 1945 Unknown [id number] 2.16.840.1.022632.3.579.2 .727 1945 Unknown [id number] 2.16.840.1.773977.3.579.2 .727 Unknown [id number] 2.16.840.1.245028.3.579.2 .531 Unknown [id number] 2.16.840.1.541447.3.579.2 .531 Unknown [id number] 2.16.840.1.965656.3.579.2 .531 Unknown [id number] 2.16.840.1.175458.3.579.2 .531 Unknown [id number] 2.16.840.1.615509.3.579.2 .531 Unknown [id number] 2.16.840.1.411970.3.579.2 .531 Unknown [id number] 2.16.840.1.915335.3.579.2 .531 Social History Date Type Detail Facility Unknown if ever smoked [facility] Other Start: 07-01-2022 End: 09-14-2022 Sex Assigned At [facility] Other Start: 08-31-2010 End: 08-18-2021 Tobacco smoking status Never smoked tobacco (finding) [facility] Tobacco smoking status Never [facility] Start: 12-29-2016 End: 07-21-2022 Alcohol intake Current drinker of alcohol (finding) [facility] Start: 08-31-2010 Alcohol Comment Daily - two to three drinks daily [facility] Start: 1945 Sex Assigned At Not on file C [facility] Start: 07-01-2022 End: 09-14-2022 History of Social function [facility] Start: 1945 Sex Assigned At Male F [facility] Medical Equipment Procedure Code Equipment Code Equipment Origin al Text Equipment Identifier Dates Fusion, spine, lumbar, XLIF CANCELLOUS 7.5 CRUSHED FDA Start: 02-25-2020 Fusion, spine, lumbar, XLIF Orthopaedic bone screw, non-bioabsorbable, non-sterile [id number] FDA Start: 02-25-2020 Fusion, spine, lumbar, XLIF Bone-screw internal spinal fixation system, non-sterile [id number] FDA Start: 02-25-2020 Fusion, spine, lumbar, XLIF Spinal fusion graft kit [id number] FDA Start: 02-25-2020 Fusion, spine, lumbar, XLIF Polymeric spinal fusion cage, sterile [id number] FDA Start: 02-25-2020 Fusion, spine, lumbar, XLIF Bone-screw internal spinal fixation system, non-sterile [id number] FDA Start: 02-25-2020 Fusion, spine, lumbar, XLIF Orthopaedic bone screw, non-bioabsorbable, non-sterile [id number] FDA Start: 02-25-2020 Fusion, spine, lumbar, XLIF CANCELLOUS 7.5 CRUSHED FDA Start: 02-25-2020 Fusion, spine, lumbar, XLIF CANCELLOUS 7.5 CRUSHED FDA Start: 02-25-2020 Fusion, spine, lumbar, XLIF CANCELLOUS 7.5 CRUSHED FDA Start: 02-25-2020 Fusion, spine, lumbar, XLIF CANCELLOUS 7.5 CRUSHED FDA Start: 02-25-2020 Fusion, spine, lumbar, XLIF CANCELLOUS 7.5 CRUSHED FDA Start: 02-25-2020 Fusion, spine, lumbar, XLIF CANCELLOUS 7.5 CRUSHED FDA Start: 02-25-2020 Fusion, spine, lumbar, XLIF CANCELLOUS 7.5 CRUSHED FDA Start: 02-25-2020 Fusion, spine, lumbar, XLIF CANCELLOUS 7.5 CRUSHED FDA Start: 02-25-2020 Fusion, spine, lumbar, XLIF CANCELLOUS 7.5 CRUSHED FDA Start: 02-25-2020 Fusion, spine, lumbar, XLIF CANCELLOUS 7.5 CRUSHED FDA Start: 02-25-2020 Fusion, spine, lumbar, XLIF CANCELLOUS 7.5 CRUSHED FDA Start: 02-25-2020 Fusion, spine, lumbar, XLIF CANCELLOUS 7.5 CRUSHED FDA Start: 02-25-2020 Fusion, spine, lumbar, XLIF CANCELLOUS 7.5 CRUSHED FDA Start: 02-25-2020 Fusion, spine, lumbar, XLIF CANCELLOUS 7.5 CRUSHED FDA Start: 02-25-2020 Fusion, spine, lumbar, XLIF CANCELLOUS 7.5 CRUSHED FDA Start: 02-25-2020 Fusion, spine, lumbar, XLIF CANCELLOUS 7.5 CRUSHED FDA Start: 02-25-2020 Goals Date Patient Goal Desired Activity /State Functional Status Date Assessment Result Facility 10-25-2023 Functional Status N/A [facility] 08-10-2022 Functional Status N/A [facility] 02-24-2022 Functional Status N/A [facility] 12-15-2021 Functional Status N/A [facility] 08-18-2021 Functional Status N/A [facility] Clinical Notes 09-19-2015 to 10-25-2023 Note Date & Type Note Facility 10-25-2023 Hospital Discharg e instructions Patient Education 10/25/2023 14:35:23 Transurethral Resection of Bladder Tumor Transurethral Resection of Bladder Tumor Transurethral resection of a bladder tumor is the removal (resection) of cancerous tissue (tumor) from the inside wall of the bladder. The bladder is the organ that holds urine. The tumor is removed through the tube that carries urine out of the body (urethra). In a transurethral resection, a thin telescope with a light, a tiny camera, and an electric cutting edge (resectoscope) is passed through the urethra. In men, the opening of the urethra is at the end of the penis. In women, it is just above the opening of the vagina. Tell a health care provider about: Any allergies you have. All medicines you are taking, including vitamins, herbs, eye drops, creams, and skgq-zbq-vxtrzwv medicines. Any problems you or family members have had with anesthetic medicines. Any bleeding problems you have. Any surgeries you have had. Any medical conditions you have, including recent urinary tract infections. Whether you are or may be . What are the risks? Generally, this is a safe procedure. However, problems may occur, including: Infection. Bleeding. Allergic reactions to medicines. Damage to nearby structures or organs. Difficulty urinating from blockage of the urethra or not being able to urinate (urinary retention). Deep vein thrombosis. This is a blood clot that can develop in your leg. Recurring cancer. What happens before the procedure? When to stop eating and drinking Follow instructions from your health care provider about what you may eat and drink before your procedure. These may include: 8 hours before your procedure ?Stop eating most foods. Do not eat meat, fried foods, or fatty foods. ?Eat only light foods, such as toast or crackers. ?All liquids are okay except energy drinks and alcohol. 6 hours before your procedure ?Stop eating. ?Drink only clear liquids, such as water, clear fruit juice, black coffee, plain tea, and sports drinks. ?Do not drink energy drinks or alcohol. 2 hours before your procedure ?Stop drinking all liquids. ?You may be allowed to take medicines with small sips of water. Medicines Ask your health care provider about: Changing or stopping your regular medicines. This is especially important if you are taking diabetes medicines or blood thinners. Taking medicines such as aspirin and ibuprofen. These medicines can thin your blood. Do not take these medicines unless your health care provider tells you to take them. Taking aqxm-hfb-mswalva medicines, vitamins, herbs, and supplements. General instructions If you will be going home right after the procedure, plan to have a responsible adult: ?Take you home from the hospital or clinic. You will not be allowed to drive. ?Care for you for the time you are told. Ask your health care provider what steps will be taken to help prevent infection. These steps may include: ? Washing skin with a germ-killing soap. ? Taking antibiotic medicine. Do not use any products that contain nicotine or tobacco for at least 4 weeks before the procedure. These products include cigarettes, chewing tobacco, and vaping devices, such as e-cigarettes. If you need help quitting, ask your health care provider. What happens during the procedure? An IV will be inserted into one of your veins. You will be given one or more of the following: ?A medicine to help you relax (sedative). ?A medicine that is injected into your spine to numb the area below and slightly above the injection site (spinal anesthetic). ?A medicine that is injected into an area of your body to numb everything below the injection site (regional anesthetic). ?A medicine to make you fall asleep (general anesthetic). Your legs will be placed in foot rests (stirrups) to open your legs and bend your knees. The resectoscope will be passed through your urethra and into your bladder. The part of your bladder with the tumor will be resected by the cutting edge of the resectoscope. Fluid will be passed to rinse out the cut tissues (irrigation). The resectoscope will then be taken out. A small, thin tube (catheter) will be passed through your urethra and into your bladder. The catheter will drain urine into a bag outside of your body. The procedure may vary among health care providers and hospitals. What happens after the procedure? Your blood pressure, heart rate, breathing rate, and blood oxygen level will be monitored until you leave the hospital or clinic. You may continue to receive fluids and medicines through an IV. You will be given pain medicine to relieve pain. You will have a catheter to drain your urine. ?The amount of urine will be measured. If you have blood in your urine, your bladder may be rinsed out by passing fluid through your catheter. You will be encouraged to walk as soon as you can. You may have to wear compression stockings. These stockings help to prevent blood clots and reduce swelling in your legs. If you were given a sedative during the procedure, it can affect you for several hours. Do not drive or operate machinery until your health care provider says that it is safe. Summary Transurethral resection of a bladder tumor is the removal (resection) of a cancerous growth (tumor) on the inside wall of the bladder. To do this procedure, your health care provider uses a thin telescope with a light, a tiny camera, and an electric cutting edge (resectoscope) that is guided to your bladder through your urethra. The part of your bladder that is affected by the tumor will be resected by the cutting edge of the resectoscope. A catheter will be passed through your urethra and into your bladder. The catheter will drain urine into a bag outside of your body. If you will be going home right after the procedure, plan to have a responsible adult take you home from the hospital or clinic. You will not be allowed to drive. This information is not intended to replace advice given to you by your health care provider. Make sure you discuss any questions you have with your health care provider. Document Revised: 02/12/2022 Document Reviewed: 02/12/2022 [employer] Patient Education 2023 [employer]. Follow Up Care 09/21/2023 12:31:22 With:CHEPE ESPINOSA, Albert Wagn, URL Address: [facility] [address] , [place] [id number]- [phone] When: Unknown [facility] 10-25-2023 Note Patient Education Oncology Transurethral Resection of Bladder Tumor Transurethral resection of a bladder tumor is the removal (resection) of cancerous tissue (tumor) from the inside wall of the bladder. The bladder is the organ that holds urine. The tumor is removed through the tube that carries urine out of the body (urethra). In a transurethral resection, a thin telescope with a light, a tiny camera, and an electric cutting edge (resectoscope) is passed through the urethra. In men, the opening of the urethra is at the end of the penis. In women, it is just above the opening of the vagina. Tell a health care provider about: ? Any allergies you have. ? All medicines you are taking, including vitamins, herbs, eye drops, creams, and nbdg-rpe-oeeylsc medicines. ? Any problems you or family members have had with anesthetic medicines. ? Any bleeding problems you have. ? Any surgeries you have had. ? Any medical conditions you have, including recent urinary tract infections. ? Whether you are or may be . What are the risks? Generally, this is a safe procedure. However, problems may occur, including: ? Infection. ? Bleeding. ? Allergic reactions to medicines. ? Damage to nearby structures or organs. ? Difficulty urinating from blockage of the urethra or not being able to urinate (urinary retention). ? Deep vein thrombosis. This is a blood clot that can develop in your leg. ? Recurring cancer. What happens before the procedure? When to stop eating and drinking Follow instructions from your health care provider about what you may eat and drink before your procedure. These may include: ? 8 hours before your procedure ? Stop eating most foods. Do not eat meat, fried foods, or fatty foods. ? Eat only light foods, such as toast or crackers. ? All liquids are okay except energy drinks and alcohol. ? 6 hours before your procedure ? Stop eating. ? Drink only clear liquids, such as water, clear fruit juice, black coffee, plain tea, and sports drinks. ? Do not drink energy drinks or alcohol. ? 2 hours before your procedure ? Stop drinking all liquids. ? You may be allowed to take medicines with small sips of water. Medicines Ask your health care provider about: ? Changing or stopping your regular medicines. This is especially important if you are taking diabetes medicines or blood thinners. ? Taking medicines such as aspirin and ibuprofen. These medicines can thin your blood. Do not take these medicines unless your health care provider tells you to take them. ? Taking nkbk-fff-fwjmahy medicines, vitamins, herbs, and supplements. General instructions ? If you will be going home right after the procedure, plan to have a responsible adult: ? Take you home from the hospital or clinic. You will not be allowed to drive. ? Care for you for the time you are told. ? Ask your health care provider what steps will be taken to help prevent infection. These steps may include: ? Washing skin with a germ-killing soap. ? Taking antibiotic medicine. ? Do not use any products that contain nicotine or tobacco for at least 4 weeks before the procedure. These products include cigarettes, chewing tobacco, and vaping devices, such as e-cigarettes. If you need help quitting, ask your health care provider. What happens during the procedure? ? An IV will be inserted into one of your veins. ? You will be given one or more of the following: ? A medicine to help you relax (sedative). ? A medicine that is injected into your spine to numb the area below and slightly above the injection site (spinal anesthetic). ? A medicine that is injected into an area of your body to numb everything below the injection site (regional anesthetic). ? A medicine to make you fall asleep (general anesthetic). ? Your legs will be placed in foot rests (stirrups) to open your legs and bend your knees. ? The resectoscope will be passed through your urethra and into your bladder. ? The part of your bladder with the tumor will be resected by the cutting edge of the resectoscope. ? Fluid will be passed to rinse out the cut tissues (irrigation). ? The resectoscope will then be taken out. ? A small, thin tube (catheter) will be passed through your urethra and into your bladder. The catheter will drain urine into a bag outside of your body. The procedure may vary among health care providers and hospitals. What happens after the procedure? ? Your blood pressure, heart rate, breathing rate, and blood oxygen level will be monitored until you leave the hospital or clinic. ? You may continue to receive fluids and medicines through an IV. ? You will be given pain medicine to relieve pain. ? You will have a catheter to drain your urine. ? The amount of urine will be measured. If you have blood in your urine, your bladder may be rinsed out by passing fluid through your catheter. ? You will be encouraged (more content not included)... [facility] 08-16-2023 Procedure note [facility] 06-07-2023 Procedure note [facility] 05-10-2023 Procedure note [facility] 03-10-2023 Evaluation note Encounter Date Diagnosis Assessment Notes Feb, Sacroiliitis (ICD-10 - M46.1) Patients primary complaint today is persistent, severe low lumbar and gluteal pain. I agree with neurosurgerys assessment; patient shows notable tenderness over the sacroiliac joints bilaterally, left greater than right on exam and would be a reasonable candidate for bilateral sacroiliac joint injections which we will proceed with. Risks and benefits of procedure explained to patient; patient verbalizes understanding. Should he receive significant short term benefit, we discussed the possiblity of a sacral lateral radiofrequency ablation. Anatomy of spine discussed in detail with patient in regards to patients condition. Feb, Other low back pain (ICD-10 - M54.59) Given other symptoms patient may benefit from a transforaminal epidural injection vs a piriformis injection in the future Feb, Other chronic pain (ICD-10 - G89.29) Feb, Other Above note written by Bo Chiang MA, [employer] Intern. Edited and approved by Dr. Zacarias Wylie MD. Medical decision making shows a new problem to me with further workup planned or suggested with the potential for extensive treatment options that were considered with the most applicable given this patient's situation as noted above. Treatment options considered include a combination of physical therapy approaches, pharmacologic management, and interventional procedures. Those most applicable to the patient were discussed at this time. Risk of complications and/or morbidity and mortality is high given that acute and chronic pain poses a threat to life and bodily function if undertreated, poorly treated or with failure to maintain adequate treatment and timely followup. Given the serious and fluctuating nature of pain with extensive consideration for whenever pain changes, there always remains the possibility of prolonged functional impairment requiring constant patient reassessment and high-level medical decision making. The amount and complexity of data reviewed is high given that patient labs, radiology reports, and other test were obtained, reviewed and summarized as applicable from the physician portal and/or outside medical records. Pertinent positive and negative findings were considered in medical decision-making. 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 The plain x-ray and report were also reviewed there is no gross instability there is degenerative changes of the L4-5 disc space and the patient on MRI has a synovial cyst left L4-5 with mild mass effect. He has left sacroiliac pain only and I would recommend sacroiliac injections as the best form of treatment with this. I would also imagine should these fail and I doubt they will a transforaminal injection L4-5 on the left could be potentially done. His right hip pain is more piriformis type pain in the hip capsule would need to be addressed in that setting. Jan, Sacroiliac inflammation (ICD-10 - M46.1) Jan, Piriformis syndrome, right (ICD-10 - G57.01) [facility] Other 11-21-2023 Evaluation note* Encounter Date Diagnosis Assessment Notes Treatment Notes Treatment Clinical Notes Dec, Radiculopathy, lumbar region (ICD-10 - M54.16) Independently reviewed the MRI of the lumbar spine from 01/06/2023 and which shows at the L4-5 disc herniation with facet hypertrophy contributing to mild right and moderate left neuroforaminal narrowing. There is and I internal synovial cyst on the left contributing to moderate narrowing of the spinal canal. This is slightly worse when compared to previous exam. At the L5-S1 there is posterior fusion hardware with endplate osteophyte formation and facet hypertrophy. There is moderate to severe left and severe right neuroforaminal narrowing with mass effect on the exiting L5 nerve root bilaterally. Patient is currently having left foot neuropathy. Complaint of pain in the low back and left buttock cheek denies any pain extending down the leg. Discussion peripheral versus radicular in which we will order EMG. 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 Will get release of information from [facility] for MRI of lumbar spine. Will get release of information from Dr Doty and [facility]. Advised patient likely benefit from left sacroiliac joint injection. If unable to obtain the MRI from [facility] will order. Pharmacological management will continue current medication as prescribed we will add Medrol Dosepak. Follow up in 4 weeks. Medical decision making shows a new problem to me with further workup planned or suggested with the potential for extensive treatment options that were considered with the most applicable given this patient's situation as noted above. Treatment options considered include a combination of physical therapy approaches, pharmacologic management, and interventional procedures. Those most applicable to the patient were discussed at this time. Risk of complications and/or morbidity and mortality is high given that acute and chronic pain poses a threat to life and bodily function if undertreated, poorly treated or with failure to maintain adequate treatment and timely follow up. Given the serious and fluctuating nature of pain with extensive consideration for whenever pain changes, there always remains the possibility of prolonged functional impairment requiring constant patient reassessment and high-level medical decision making. The amount and complexity of data reviewed is high given that patient labs, radiology reports, and other test were obtained, reviewed and summarized as applicable from the physician portal and/or outside medical records. Pertinent positive and negative findings were considered in medical decision-making. Nov, Sacroiliac inflammation (ICD-10 - M46.1) Nov, Spondylolisthesis at L5-S1 level (ICD-10 - M43.17) [employer] Other 10-10-2023 Notebody heights demonstrate mild compression deformities of L1 and L2 which have progressed since theN[employer] Other 10-10-2023 Notebody heights demonstrate mild compression deformities of L1 and L2 which have progressed since [facility] [employer] Other 09-28-2023 Miscellaneous Notes* Telephone Encounter - Meaghan Beyer LPN - 11/18/2022 1:01 PM EDT Called spoke with patient, provider's message below given. Follow up appt scheduled with Dr. Apple. * Telephone Encounter - Elsie Shrestha APRN.CNP - 11/18/2022 10:56 AM EDT Spoke with Dr. Apple about patient's continued pain He recommends scheduling office visit with him for re-evaluation to discuss potential options for treatment of his pain. Please help schedule in new patient slot documented in this encounterBlanchard [facility] NoteHNO ID: [id number] Author: Elsie Shrestha APRN.NANDINI Service: ? Author Type: Nurse Practitioner Type: Progress Notes Filed: 11/17/2022 8:43 AM Note Text: Mr. Chiang a 77 year old male returns today for follow up of post injection, he states that symptoms have not changed. PAIN: Pain Yes. Location: left sided low back radiating into left hip and down to foot, rates pain a 7 on a pain scale of 1-10. Patient describes pain as aching, duration to the present time occuring daily x 4. MEDICATIONS: Medications reviewed and verified. Current Outpatient Medications Medication Sig pregabalin (LYRICA) 100 mg capsule Take 100 mg by mouth twice daily. amLODIPine (NORVASC) 5 mg tablet Take 5 mg by mouth. metoprolol succinate ER (TOPROL XL) 50 mg 24 hr tablet TAKE 1 TABLET BY MOUTH ONCE DAILY ... (REFER TO PRESCRIPTION NOTES). montelukast (SINGULAIR) 10 mg tablet Take 10 mg by mouth once daily. XARELTO 15 mg tablet Take 15 mg by mouth every morning. cloNIDine HCl (CATAPRES) 0.1 mg tablet Take 0.1 mg by mouth twice daily. dicyclomine (BENTYL) 10 mg capsule Take 10 mg by mouth before meals and at bedtime. levothyroxine (SYNTHROID) 150 mcg tablet Take 150 mcg by mouth daily before breakfast. loratadine 10 mg ORAL tablet Take 1 tablet by mouth once daily. BD ASSURE BPM-AUTO ARM CUFF Measure BP as instructed. allopurinol 300 mg ORAL tablet Take 1 tablet by mouth once daily. simvastatin 40 mg ORAL tablet Take 1 tablet by mouth daily at bedtime. No current facility-administered medications for this visit. Patient feels that medications have not used PREVIOUS TREATMENTS LASTING SIX WEEKS IN THE LAST SIX MONTHS Active conservative therapy lasting 6 weeks in the last six months (see below) 1. Physical therapy: No 2. Home exercise program after PT: No 3. Occupational therapy: No 4. A physician supervised home exercise program (HEP): No 5. Paleobotanist: Currently Going Passive conservative therapy lasting 6 weeks in the last six months (see below) 1. Medical devises: No 2. Acupuncture: No 3. Tens unit: No 4. Prescription pain medication: No 5. NSAIDS: No TREATMENTS: Caudal epidural steroid injection with Racz catheter under fluoroscopic guidance. On 10/08/2022 Only got a couple hours of relief Massage- helps little EXAM: Pulse 101 Ht 185.4 cm (6' 1 ) SpO2 97% BMI 32.98 kg/m? No acute distress noted, patient alert and oriented X's 3. Resistive testing proximal and distal in the upper and the lower extremeties show 5/5 strength. DTR's are symmetrical in the upper and the lower extremeties. Nerve root tension signs: Negative. Heart: RRR Lungs: Clear Abdomen: Soft, non tender Spine: tenderness with palpation of lumbar spine, reproducible pain with flexion IMPRESSION: Some element copied from my note on 09/14/2022, which have been updated where appropriate, and all reflect my current medical decision making from today. This is a 77 year old gentleman with history of chronic neck aLnd lower back pain in the setting of DDD, NFS, s/p L5-S1 PLIF decompression with Dr. Last in 02/2020. He recently established care with Dr Apple. He has undergone the following procedures: 08/20/2022 Left L3-L4 and L 4-5 medial branch nerve block # 1 under fluoroscopic guidance. He reports this injection offered him 30-40% pain relief for 1-2 days 10/08/2022 Caudal epidural steroid injection with Racz catheter under fluoroscopic guidance. He reports this injection offered 50% pain relief for 1-2 weeks. He continues to have lower back pain left sided lower back pain that can radiate into his lower buttock. Pain can also occur on his left underside of her foot. Pain is worsened with walking and standing. This pain keeps him from being active. He reports he can no longer tolerate this pain. He denies any red flag symptoms including weight loss, fevers, chills, night time awakening of pain, bowel bladder incontinence, saddle anesthesia, progressive numbness or weakness. We discussed that if these symptoms should arise he should seek emergency treatment. He has undergone CT of lumbar spine that was revealing for Remote postoperative changes of discectomy and posterior fusion L5-S1. There does appear to be solid bony fusion between the L5 and S1 vertebrae. Bilateral moderate neural foraminal stenoses at L5-S1 and L4-L5. He also has some continued radicular neck pain. This pain can radiate into the posterior aspect of his shoulder. He underwent MRI of cervical spine that was revealing for Mild canal stenosis at C3-4 through C5-6 which is most prominent at C5-6 where there is only slight impingement of the adjacent cord. Multilevel bony foraminal narrowing as detailed above. He is currently taking Lyrica 100mg PO BID. He denies any side effects to this regimen. He is unable to take NSAIDs due to his regimen of Xarelto. I spent a total of 30 minutes on the date of the (more content not included)... [facility] Miscellaneous Notes* Telephone Encounter - Phoebe Pulido - 10/13/2022 10:17 AM EDT Patient scheduled appt yesterday. * Telephone Encounter - Meaghan Beyer LPN - 10/13/2022 9:22 AM EDT Message left for patient to return call. Please assist patient with scheduling a follow up appt with Figueroa Shrestha CNP per Dr. Apple's plan. * Telephone Encounter - Carolynn Leong - 10/12/2022 9:24 AM EDT Voicemail left for patient asking him to call back as soon as he receives our message to proceed with scheduling an appointment with Elsie Shrestha CNP as requested by Dr. Apple. Carolynn DAVIS October 12, 2022 9:24 AM * Telephone Encounter - Carol Wolf RN - 10/11/2022 4:[address] Apple on Caudal epidural steroid injection 10/08/22. Pre Pain 4 Post Pain 0 - Patient Reports 80-90 % - Functional improvement Patient is able to Bend with ease Patient is able to twist Patient is able to sit for longer period of time. Patient reports going Up & Down Stairs is the same he still has to use side rails Patient report getting up & down from chair is still the same Patient reports Walk longer is still the same and walks with a cane depending on surface i.e. grassy surfaces. Hasn't noticed a difference Plan: Return to clinic in 4-6 weeks for office visit follow up.. PSS please assist with Follow up * Telephone Encounter - Meaghan Beyer LPN - 10/11/2022 2:30 PM EDT Message left for patient to call in with an update. Please document the % (40%, 50%,etc) of improvement and any functional improvement since his procedure with Dr. Apple on 10/08/22. Pre Pain 4 Post Pain 0 Caudal epidural steroid injection Plan: Return to clinic in 4-6 weeks for office visit follow up.. documented in this encounterBlanchard [facility]08-08-[facility] Miscellaneous Notes* Telephone Encounter - Arnol Blake - 09/28/2022 12:27 PM EDT Caudal ZEE with racz catheter CHIANGDOMINICK [id number] LYNDSEY SMITH Spoke to patient. He is in [place] and will call when he is back home. * Telephone Encounter - Ly Macias LPN - 09/24/2022 10:01 AM EDT Spoke with pt, he would like to schedule injection. Pt is out of state and asking that we call him on Tuesday around 10am to assist with scheduling. Caudal ZEE with racz catheter * Telephone Encounter - Ly Macias LPN - 09/21/2022 3:04 PM EDT Call placed to pt, no answer, left VM with below message from Kerri for pt to return call & let us know if he wants to proceed with the Caudal ZEE. * Telephone Encounter - Elsie Shrestha APRN.CNP - 09/21/2022 2:46 PM EDT I spoke with Dr. Apple who recommend Caudal ZEE with racz catheter given his continued pain. Please let patient know recommendations. Elsie Shrestha APRN.CNP * Telephone Encounter - Elsie Shrestha APRN.CNP - 09/20/2022 3:16 PM EDT I am waiting to be able to discuss patient's visit with Dr. Apple. I will call him with recommendations. Dr. Apple returned to office today and has been doing procedures all day. I have not been able to touch base with him Elsie Shrestha APRN.REFINERY OPERATOR [employer] * Telephone Encounter - Veronica Wolfe LPN - 09/20/2022 2:41 PM EDT Per 09/14/22 office note: Will review results of recent injection with Dr. Apple and call patient with updated recommendations * Telephone Encounter - Phoebe Goldstein RN - 09/20/2022 2:23 PM EDT Patient calling in to office. Verified by name and . Patient was seen in office with pain management 09/14/22. States he was advised at that time that NPwas going to discuss medication options with physician for leg pain. States he is leaving for out of town on Tuesday, and asking if something can be prescribed prior to then. Please notify patient by phone as to recommendations. documented in this encounterBlanchard [facility]07-[facility]23 NoteHNO ID: [id number] Author: Elsie Shrestha APRN.NANDINI Service: ? Author Type: Nurse Practitioner Type: Progress Notes Filed: 09/14/2022 1:35 PM Note Text: Mr. Chiang a 77 year old male returns today for follow up of post injection , he states that symptoms have not changed. PAIN: Pain Yes. Location: LB, rates pain a 4 on a pain scale of 1-10. Patient describes pain as aching, tightness duration to the present time occuring daily x 4. MEDICATIONS: Medications reviewed and verified. Current Outpatient Medications Medication Sig pregabalin (LYRICA) 100 mg capsule Take 100 mg by mouth twice daily. amLODIPine (NORVASC) 5 mg tablet Take 5 mg by mouth. metoprolol succinate ER (TOPROL XL) 50 mg 24 hr tablet TAKE 1 TABLET BY MOUTH ONCE DAILY ... (REFER TO PRESCRIPTION NOTES). montelukast (SINGULAIR) 10 mg tablet Take 10 mg by mouth once daily. XARELTO 15 mg tablet Take 15 mg by mouth every morning. cloNIDine HCl (CATAPRES) 0.1 mg tablet Take 0.1 mg by mouth twice daily. dicyclomine (BENTYL) 10 mg capsule Take 10 mg by mouth before meals and at bedtime. levothyroxine (SYNTHROID) 150 mcg tablet Take 150 mcg by mouth daily before breakfast. loratadine 10 mg ORAL tablet Take 1 tablet by mouth once daily. BD ASSURE BPM-AUTO ARM CUFF Measure BP as instructed. allopurinol 300 mg ORAL tablet Take 1 tablet by mouth once daily. simvastatin 40 mg ORAL tablet Take 1 tablet by mouth daily at bedtime. No current facility-administered medications for this visit. Patient feels that medications have helped a little PREVIOUS TREATMENTS LASTING SIX WEEKS IN THE LAST SIX MONTHS Active conservative therapy lasting 6 weeks in the last six months (see below) 1. Physical therapy: 2. Home exercise program after PT: No 3. Occupational therapy: No 4. A physician supervised home exercise program (HEP): No 5. Paleobotanist: No Passive conservative therapy lasting 6 weeks in the last six months (see below) 1. Medical devises: No 2. Acupuncture: No 3. Tens unit: No 4. Prescription pain medication: Yes 5. NSAIDS: No TREATMENTS: Left L3-L4 and L 4-5 medial branch nerve block # 1 08/20/2022 Lyrica 100 mg little relief Massage Therapist [place] (+) relief Chiropractic [place] (+) relief EXAM: Pulse 70 Ht 188 cm (6' 2 ) Wt 113.4 kg (250 lb) SpO2 97% BMI 32.10 kg/m? No acute distress noted, patient alert and oriented X's 3. Resistive testing proximal and distal in the upper and the lower extremeties show 5/5 strength. DTR's are symmetrical in the upper and the lower extremeties. Nerve root tension signs: Negative. Heart: RRR Lungs: Clear Abdomen: Soft, non tender Spine: Tenderness with palpation of lumbar spine, reproducible pain with extension/flexion IMPRESSION: Some element copied from my note on 07/21/2022, which have been updated where appropriate, and all reflect my current medical decision making from today. This is a 77 year old gentleman with history of chronic neck aLnd lower back pain in the setting of DDD, NFS, s/p L5-S1 PLIF decompression with Dr. Last in 02/2020. He recently established care with Dr Apple. Since last office visit he has undergone the following procedures: 08/20/2022 Left L3-L4 and L 4-5 medial branch nerve block # 1 under fluoroscopic guidance. He reports this injection offered him 30-40% pain relief for 1-2 days He continues to have lower back pain left sided lower back pain that can radiate into his lower buttock. Pain can also occur on his right side. Pain is worsened with walking and standing. This pain keeps him from being active. He denies any red flag symptoms including weight loss, fevers, chills, night time awakening of pain, bowel bladder incontinence, saddle anesthesia, progressive numbness or weakness. We discussed that if these symptoms should arise he should seek emergency treatment. He has undergone CT of lumbar spine that was revealing for Remote postoperative changes of discectomy and posterior fusion L5-S1. There does appear to be solid bony fusion between the L5 and S1 vertebrae. Bilateral moderate neural foraminal stenoses at L5-S1 and L4-L5. He also has some continued radicular neck pain. This pain can radiate into the posterior aspect of his shoulder. He underwent MRI of cervical spine that was revealing for Mild canal stenosis at C3-4 through C5-6 which is most prominent at C5-6 where there is only slight impingement of the adjacent cord. Multilevel bony foraminal narrowing as detailed above. He is currently taking Lyrica 100mg PO BID. He denies any side effects to this regimen. He is unable to take NSAIDs due to his regimen of Xarelto. I spent a total of 30 minutes on the date of the service which included preparing to see the patient, [id number] patient care, completing clinical documentation, obtaining and/or reviewing separately obtained history, performing a medically appropriate exam (more content not included)... [facility]06-[facility] Miscellaneous Notes* Telephone Encounter - Elsie Shrestha APRN.NANDINI - 08/13/2022 12:02 PM EDT Please let patient know MRI Mild canal stenosis at C3-4 through C5-6 which is most prominent at C5-6 where there is only slight impingement of the adjacent cord. Multilevel bony foraminal narrowing as detailed above. 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 Plan to proceed with injection as schedule we can go over MRI in his follow up visit following injection Elsie Shrestha APRN.REFINERY OPERATOR [employer] documented in this encounterBlanchard Valley [facility]06-[facility] Hospital Discharge instructions Follow Up Care 08/10/2022 13:20:00 With:CHEPE ESPINOSA, CORAL Beaver Address: [facility] [address] [place] [address] [phone] When: Unknown [facility] 06-20-2023 Hospital Discharge instructions Patient Education 08/10/2022 12:57:05 Acute Urinary Retention, Male Acute Urinary Retention, Male Acute urinary retention is a condition in which a person is unable to pass urine or can only pass alittle urine. This condition can happen suddenly and last for a short time. If left untreated, it can become long-term (chronic) and result in kidney damage or other serious complications. What are the causes? This condition may be caused by: Obstruction or narrowing of the tube that drains the bladder (urethra). This may be caused by surgery, problems with nearby organs, or injury to the bladder or urethra. Problems with the nerves in the bladder. Tumors in the area of the pelvis, bladder, or urethra. Certain medicines. Bladder or urinary tract infection. Constipation. What increases the risk? This condition is more likely to develop in older men. As men age, their prostate may become largerand may start to press or squeeze on the bladder or the urethra. Other chronic health conditions can increase the risk of acute urinary retention. These include: Diseases such as multiple sclerosis. Spinal cord injuries. Diabetes. Degenerative cognitive conditions, such as delirium or dementia. Psychological conditions. A man may hold his urine due to trauma or because he does not want to usethe bathroom. What are the signs or symptoms? Symptoms of this condition include: Trouble urinating. Pain in the lower abdomen. How is this diagnosed? This condition is diagnosed based on a physical exam and your medical history. You may also have other tests, including: An ultrasound of the bladder or kidneys or both. Blood tests. A urine analysis. Additional tests may be needed, such as a CT scan, MRI, and kidney or bladder function tests. How is this treated? Treatment for this condition may include: Medicines. Placing a thin, sterile tube (catheter) into the bladder to drain urine out of the body. This is called an indwelling urinary catheter. After it is inserted, the catheter is held in place with a small balloon that is filled with sterile water. Urine drains from the catheter into a collection bag outside of the body. Behavioral therapy. Treatment for other conditions. If needed, you may be treated in the hospital for kidney function problems or to manage other complications. Follow these instructions at home: Medicines Take efrh-zmo-mttwqre and prescription medicines only as told by your health care provider. Avoid certain medicines, such as decongestants, antihistamines, and some prescription medicines. Do not take any medicine unless your health care provider approves. If you were prescribed an antibiotic medicine, take it as told by your health care provider. Do notstop using the antibiotic even if you start to feel better. General instructions Do not use any products that contain nicotine or tobacco. These products include cigarettes, chewing tobacco, and vaping devices, such as e-cigarettes. If you need help quitting, ask your health careprovider. Drink enough fluid to keep your urine pale yellow. If you have an indwelling urinary catheter, follow the instructions from your health care provider. Monitor any changes in your symptoms. Tell your health care provider about any changes. If instructed, monitor your blood pressure at home. Report changes as told by your health care provider. Keep all follow-up visits. This is important. Contact a health care provider if: You have uncomfortable bladder contractions that you cannot control (spasms). You leak urine with the spasms. Get help right away if: You have chills or a fever. You have blood in your urine. You have a catheter and the following happens: ?Your catheter stops draining urine. ?Your catheter falls out. Summary Acute urinary retention is a condition in which a person is unable to pass urine or can only pass alittle urine. If left untreated, this condition can result in kidney damage or other serious complications. An enlarged prostate may cause this condition. As men age, their prostate gland may become larger and may press or squeeze on the bladder or the urethra. Treatment for this condition may include medicines and placement of an indwelling urinary catheter. Monitor any changes in your symptoms. Tell your health care provider about any changes. This information is not intended to replace advice given to you by your health care provider. Make sure you discuss any questions you have with your health care provider. Document Revised: 10/29/2020 Document Reviewed: 10/29/2020 [employer] Patient Education 2022 [employer]. Follow Up Care 07/09/2022 13:58:17 With:CHEPE ESPINOSA, Albert Wang, URL Address: [facility] [address] [place] [address]- [phone] When:Within 6 Month(s) [facility] 06-16-2023 NoteHNO ID: [id number] Author: FATMATA Mills) Service: ? Author Type: Technologist Type: Progress Notes Filed: 08/06/2022 12:22 PM Note Text: Radiology Service Progress Note PATIENT NAME: Dominick Chiang DATE OF SERVICE: August 06, 2022 TIME: 11:48 AM PATIENT IDENTITY VERIFICATION COMPLETED USING TWO (2) IDENTIFIERS: Name and Date of confirmed by patient verbally. FALL SCREENING: Has the patient had 2 falls in the last year or 1 fall with injury or currently using an Ambulatory Assistive Device (Walker, Cane, Wheelchair, Crutches, etc.)? No PATIENT GENDER DATA: Male PATIENT RELEVANT IMPLANT DATA REVIEWED: Yes RADIOLOGY DEPARTMENT: MR; Exam(s) Completed: Spine: Cervical spine PERIPHERAL IV DATA: Not applicable SIGNED BY: RT Gene(Kathleen) August 06, 2022 11:48 [facility]06-16-2023 History of Present illness Narrative* FATMATA Mills) - 08/06/2022 11:48 AM EDT Radiology Service Progress Note PATIENT NAME: Dominick Chiang DATE OF SERVICE: August 06, 2022 TIME: 11:48 AM PATIENT IDENTITY VERIFICATION COMPLETED USING TWO (2) IDENTIFIERS: Name and Date of confirmedby patient verbally. FALL SCREENING: Has the patient had 2 falls in the last year or 1 fall with injury or currently using an Ambulatory Assistive Device (Walker, Cane, Wheelchair, Crutches, etc.)? No PATIENT GENDER DATA: Male PATIENT RELEVANT IMPLANT DATA REVIEWED: Yes RADIOLOGY DEPARTMENT: MR; Exam(s) Completed: Spine: Cervical spine PERIPHERAL IV DATA: Not applicable SIGNED BY: RT Gene(R) August 06, 2022 11:48 AM documented in this encounterBlanchard Valley [facility]06-[facility] Miscellaneous Notes* Telephone Encounter - Arnol Blake - 07/22/2022 1:34 PM EDT Left L2-L3, L3-L4 medial branch DOMINICK CHIANG [id number] LYNDSEY 08/20 + thinners XARELTO ok -DM Patient was made aware that the [facility] will call the day prior to scheduled procedure between the hours of 12 and 4 pm to advise patient of arrival time the day of procedure. Patient was advised that they will require a seasonal delivery driver on the day of their procedure, and procedure will be cancelled if they arrive without a responsible adult to transport them home from the procedure. Patient advised that all medication management instructions prior to procedure will need addressed by clinical staff. Patient expresses understanding with no further questions or concerns at this time. Patient transferred to [facility] scheduling line to authorize procedure, or greencoat appointment made. * Telephone Encounter - Arnol Blake - 07/22/2022 10:03 AM EDT Left L2-L3, L3-L4 medial branch DOMINICK CHIANG [id number] BERJOHANNA - thinners -DM First attempt to schedule injection. Left detailed voicemail asking patient to return call to surgery coordinator at [phone]. documented in this encounterBlanchard Valley [facility]05-31-[facility]23 NoteHNO ID: [id number] Author: Elsie Shrestha APRN.REFINERY OPERATOR [employer] Service: ? Author Type: Nurse Practitioner Type: Progress Notes Filed: 07/21/2022 5:27 PM Note Text: Mr. Chiang a 77 year old male returns today for follow up of CT Results, he states that symptoms have not changed. PAIN: Pain Yes. Location: LB, rates pain a 1 on a pain scale of 1-10. Patient describes pain as aching, duration to the present time occuring daily MEDICATIONS: Medications reviewed and verified. Current Outpatient Medications Medication Sig pregabalin (LYRICA) 100 mg capsule Take 100 mg by mouth twice daily. amLODIPine (NORVASC) 5 mg tablet Take 5 mg by mouth. metoprolol succinate ER (TOPROL XL) 50 mg 24 hr tablet TAKE 1 TABLET BY MOUTH ONCE DAILY ... (REFER TO PRESCRIPTION NOTES). montelukast (SINGULAIR) 10 mg tablet Take 10 mg by mouth once daily. XARELTO 15 mg tablet Take 15 mg by mouth every morning. cloNIDine HCl (CATAPRES) 0.1 mg tablet Take 0.1 mg by mouth twice daily. dicyclomine (BENTYL) 10 mg capsule Take 10 mg by mouth before meals and at bedtime. levothyroxine (SYNTHROID) 150 mcg tablet Take 150 mcg by mouth daily before breakfast. loratadine 10 mg ORAL tablet Take 1 tablet by mouth once daily. BD ASSURE BPM-AUTO ARM CUFF Measure BP as instructed. allopurinol 300 mg ORAL tablet Take 1 tablet by mouth once daily. simvastatin 40 mg ORAL tablet Take 1 tablet by mouth daily at bedtime. No current facility-administered medications for this visit. Patient feels that medications have can't tell if helps PREVIOUS TREATMENTS LASTING SIX WEEKS IN THE LAST SIX MONTHS Active conservative therapy lasting 6 weeks in the last six months (see below) 1. Physical therapy: No 2. Home exercise program after PT: No 3. Occupational therapy: No 4. A physician supervised home exercise program (HEP): No 5. Paleobotanist: Still going Passive conservative therapy lasting 6 weeks in the last six months (see below) 1. Medical devises: No 2. Acupuncture: No 3. Tens unit: No 4. Prescription pain medication: Yes 5. NSAIDS: No TREATMENTS: Lyrica 100 mg BID Swimming EXAM: Pulse 70 Ht 188 cm (6' 2 ) SpO2 98% BMI 29.53 kg/m? No acute distress noted, patient alert and oriented X's 3. Resistive testing proximal and distal in the upper and the lower extremeties show 5/5 strength. DTR's are symmetrical in the upper and the lower extremeties. Nerve root tension signs: Negative. Heart: RRR Lungs: Clear Abdomen: Soft, non tender Spine: Tenderness with palpation of lumbar spine, reproducible pain with extension and axial loading LUE brisk reflexes noticed, + Spurlings to the left IMPRESSION: This is a 77 year old gentleman with history of chronic neck aLnd lower back pain in the setting of DDD, NFS, s/p L5-S1 PLIF decompression with Dr. Last in 02/2020. He recently established care with Dr Apple. He comes to office today accompanied by his . Since last office visit he has undergone CT of lumbar spine that was revealing for Remote postoperative changes of discectomy and posterior fusion L5-S1. There does appear to be solid bony fusion between the L5 and S1 vertebrae. Bilateral moderate neural foraminal stenoses at L5-S1 and L4-L5. He continues to have left sided low back pain. This pain is worsened with walking and standing. On exam he had reproducible pain with axial loading and extension. He also reports having continued radicular neck pain that can radiate into the posterior aspect of his shoulder. He has had issues with balance. He had xray of cervical spine that was revealing for Mild levocurvature at C4 The is grade I anterolisthesis at C5-6. Multilevel disc space narrowing most pronounced at C6-7 Moderate hypertrophic facet arthrosis and ligamentum nuchae calcification. Bony foraminal narrowing on the left at C4-5 through C6-7 and on the right at C3-4 through C5-6. We discussed getting MRI of cervical spine. I spent a total of 30 minutes on the date of the service which included preparing to see the patient, [id number] patient care, completing clinical documentation, obtaining and/or reviewing separately obtained history, performing a medically appropriate examination, counseling and educating the patient/family/caregiver, and ordering medications, tests, or procedures. PLAN: Abnormality of gait Cervical disc disorder with radiculopathy - MRI of cervical spine - Reviewed red flag symptoms to watch for History of lumbar fusion Chronic midline low back pain with sciatica, sciatica laterality unspecified - Left L3-L4, L4-L5 medial branch block - Consider Left Lumbar RFA if pain controlled with medial branch block - RTC following injection Elsie Hill, FERMENTER CHAMPAGNE.REFINERY OPERATOR [employer] [facility] 21[facility] History of Present illness Narrative* Elsie Shrestha APRN.REFINERY OPERATOR [employer] - 07/21/2022 1:39 PM EDT Mr. Chiang a 77 year old male returns today for follow up of CT Results, he states that symptoms have not changed. PAIN: Pain Yes. Location: LB, rates pain a 1 on a pain scale of 1-10. Patient describes pain as aching, duration to the present time occuring daily MEDICATIONS: Medications reviewed and verified. Current Outpatient Medications Medication Sig pregabalin (LYRICA) 100 mg capsule Take 100 mg by mouth twice daily. amLODIPine (NORVASC) 5 mg tablet Take 5 mg by mouth. metoprolol succinate ER (TOPROL XL) 50 mg 24 hr tablet TAKE 1 TABLET BY MOUTH ONCE DAILY ... (REFERTO PRESCRIPTION NOTES). montelukast (SINGULAIR) 10 mg tablet Take 10 mg by mouth once daily. XARELTO 15 mg tablet Take 15 mg by mouth every morning. cloNIDine HCl (CATAPRES) 0.1 mg tablet Take 0.1 mg by mouth twice daily. dicyclomine (BENTYL) 10 mg capsule Take 10 mg by mouth before meals and at bedtime. levothyroxine (SYNTHROID) 150 mcg tablet Take 150 mcg by mouth daily before breakfast. loratadine 10 mg ORAL tablet Take 1 tablet by mouth once daily. BD ASSURE BPM-AUTO ARM CUFF Measure BP as instructed. allopurinol 300 mg ORAL tablet Take 1 tablet by mouth once daily. simvastatin 40 mg ORAL tablet Take 1 tablet by mouth daily at bedtime. No current facility-administered medications for this visit. Patient feels that medications have can't tell if helps PREVIOUS TREATMENTS LASTING SIX WEEKS IN THE LAST SIX MONTHS Active conservative therapy lasting 6 weeks in the last six months (see below) 1. Physical therapy: No 2. Home exercise program after PT: No 3. Occupational therapy: No 4. A physician supervised home exercise program (HEP): No 5. Paleobotanist: Still going Passive conservative therapy lasting 6 weeks in the last six months (see below) 1. Medical devises: No 2. Acupuncture: No 3. Tens unit: No 4. Prescription pain medication: Yes 5. NSAIDS: No TREATMENTS: Lyrica 100 mg BID Swimming EXAM: Pulse 70 Ht 188 cm (6' 2 ) SpO2 98% BMI 29.53 kg/m No acute distress noted, patient alert and oriented X's 3. Resistive testing proximal and distal in the upper and the lower extremeties show 5/5 strength. DTR's are symmetrical in the upper and the lower extremeties. Nerve root tension signs: Negative. Heart: RRR Lungs: Clear Abdomen: Soft, non tender Spine: Tenderness with palpation of lumbar spine, reproducible pain with extension and axial loading LUE brisk reflexes noticed, + Spurlings to the left IMPRESSION: This is a 77 year old gentleman with history of chronic neck aLnd lower back pain in the setting ofDDD, NFS, s/p L5-S1 PLIF decompression with Dr. Last in 02/2020. He recently established care with Dr Apple. He comes to office today accompanied by his . Since last office visit he has undergone CT of lumbar spine that was revealing for Remote postoperative changes of discectomy and posterior fusion L5-S1. There does appear to be solid bony fusion between the L5 and S1 vertebrae. Bilateral moderate neural foraminal stenoses at L5-S1 and L4-L5. He continues to have left sided low back pain. This pain is worsened with walking and standing. On exam he had reproducible pain with axial loading and extension. He also reports having continued radicular neck pain that can radiate into the posterior aspect of his shoulder. He has had issues with balance. He had xray of cervical spine that was revealing for Mild levocurvature at C4 The is grade I anterolisthesis at C5-6. Multilevel disc space narrowing most pronounced at C6-7 Moderate hypertrophic facet arthrosis and ligamentum nuchae calcification. Bony foraminal narrowing on the left at C4-5 through C6-7 and on the right at C3-4 through C5-6. We discussed getting MRI of cervical spine. I spent a total of 30 minutes on the date of the service which included preparing to see the patient, [id number] patient care, completing clinical documentation, obtaining and/or reviewing separately obtained history, performing a medically appropriate examination, counseling and educating the pat ient/family/caregiver, and ordering medications, tests, or procedures. PLAN: Abnormality of gait Cervical disc disorder with radiculopathy - MRI of cervical spine - Reviewed red flag symptoms to watch for History of lumbar fusion Chronic midline low back pain with sciatica, sciatica laterality unspecified - Left L3-L4, L4-L5 medial branch block - Consider Left Lumbar RFA if pain controlled with medial branch block - RTC following injection Elsie Shrestha APRN.CNP July 21, 2022 [facility] NoteHNO ID: [id number] Author: RT Homer(R) Service: Radiology Author Type: Technologist Type: Progress Notes Filed: 07/13/2022 2:29 PM Note Text: Radiology Service Progress Note PATIENT NAME: Dominick Chiang DATE OF SERVICE: July 13, 2022 TIME: 2:15 PM PATIENT IDENTITY VERIFICATION COMPLETED USING TWO (2) IDENTIFIERS: Name and Date of confirmed by patient verbally and Name and Date of confirmed by identification band. FALL SCREENING: Has the patient had 2 falls in the last year or 1 fall with injury or currently using an Ambulatory Assistive Device (Walker, Cane, Wheelchair, Crutches, etc.)? No PATIENT GENDER DATA: Male PATIENT RELEVANT IMPLANT DATA REVIEWED: Not Applicable RADIOLOGY DEPARTMENT: CT; Exam(s) Completed: Spine PERIPHERAL IV DATA: Not applicable SIGNED BY: RT Homer(R) July 13, 2022 2:15 [facility]05-23-2023 NoteHNO ID: [id number] Author: RT Claudia(R) Service: ? Author Type: Technologist Type: Progress Notes Filed: 07/13/2022 3:08 PM Note Text: Radiology Service Progress Note PATIENT NAME: Dominick Chiang DATE OF SERVICE: July 13, 2022 TIME: 3:07 PM PATIENT IDENTITY VERIFICATION COMPLETED USING TWO (2) IDENTIFIERS: Name and Date of confirmed by patient verbally. FALL SCREENING: Has the patient had 2 falls in the last year or 1 fall with injury or currently using an Ambulatory Assistive Device (Walker, Cane, Wheelchair, Crutches, etc.)? No PATIENT GENDER DATA: Male PATIENT RELEVANT IMPLANT DATA REVIEWED: Not Applicable RADIOLOGY DEPARTMENT: General X-ray: Exam(s) Completed: Spine X-Ray(s): Cervical AP / LAT / OBL and Lumbar AP / LAT / L5-S1 / FLEX-EXT PERIPHERAL IV DATA: Not applicable SIGNED BY: RT Claudia(R) July 13, 2022 3:07 [facility]05-23-2023 History of Present illness Narrative* Elsie Gross RT(R) - 07/13/2022 3:20 PM EDT Radiology Service Progress Note PATIENT NAME: Dominick Chiang DATE OF SERVICE: July 13, 2022 TIME: 2:15 PM PATIENT IDENTITY VERIFICATION COMPLETED USING TWO (2) IDENTIFIERS: Name and Date of confirmedby patient verbally and Name and Date of confirmed by identification band. FALL SCREENING: Has the patient had 2 falls in the last year or 1 fall with injury or currently using an Ambulatory Assistive Device (Walker, Cane, Wheelchair, Crutches, etc.)? No PATIENT GENDER DATA: Male PATIENT RELEVANT IMPLANT DATA REVIEWED: Not Applicable RADIOLOGY DEPARTMENT: CT; Exam(s) Completed: Spine PERIPHERAL IV DATA: Not applicable SIGNED BY: RT Homer(R) July 13, 2022 2:15 PM documented in this encounterBl[facility] NoteHNO ID: [id number] Author: Christal Apple MD Service: ? Author Type: Physician Type: Progress Notes Filed: 07/01/2022 2:04 PM Note Text: SUBJECTIVE: Mr. Chiang a 77 year old male referred by other presents with the complaint of bilateral hip pain. Patient reports the date of onset of symptoms as 2 years and describes the location of the pain as midline. The pain is chronic, dull, and rated as moderate, with radiation. PAIN RATIO: (back:leg): Leg > Back Patient reports that LBP is increased by walking and relieved by lying down. Ambulation distance (before needing to sit): no specific amount Standing time (before needing to sit): no specific amount OTHER BACK PAIN SYMPTOMS: NIGHT PAIN: Yes occasionaly PARESTHESIA: No POOR SLEEP: Yes sometimes BOWEL/BLADDER INCONTINENCE OR RETENTION: No ACTIVITY LIMITATIONS: ADLs PREVIOUS TREATMENTS LASTING SIX WEEKS IN THE LAST SIX MONTHS Active conservative therapy lasting 6 weeks in the last six months (see below) 1. Physical therapy: [place] last time 2 weeks 2. Home exercise program after PT: No 3. Occupational therapy: No 4. A physician supervised home exercise program (HEP): No 5. Paleobotanist: yes Passive conservative therapy lasting 6 weeks in the last six months (see below) 1. Medical devises: No 2. Acupuncture: No 3. Tens unit: No 4. Prescription pain medication: Yes 5. NSAIDS: No OCCUPATIONAL HISTORY: retired HISTORY OF TRAUMA/OVERUSE OF AREA: No REVIEW OF SYSTEMS: GENERAL: Negative for malaise, significant weight loss and fever HEENT: Negative for frequent or significant headaches NECK: Negative for lumps, goiter, pain and significant neck swelling RESPIRATORY: Negative for cough, hemoptysis, wheezing, COPD, dyspnea or shortness of breath PAST MEDICAL HISTORY Diagnosis Date Gout Hyperlipidemia Hypothyroidism PAST MEDICAL HISTORY Diagnosis Date Gout Hyperlipidemia Hypothyroidism PAST SURGICAL HISTORY Procedure Laterality Date PAST SURGICAL HISTORY OF Ankle surgery EXAMINATION: [id number]: Scoliosis: No Pelvic Tilt: No Leg Length discrepancy: NA LATERAL: Cervical Lordosis: No Thoracic Kyphosis: No Lumbar Lordosis: No RANGE OF MOTION CERVICAL: Flexion: Not Limited Extension: Not Limited Rotation L: Not Limited Rotation R: Not Limited Side Bending R: Not Limited Side Bending L: Not Limited LUMBAR: Flexion: Not Limited Extension: Not Limited Rotation L: Not Limited Rotation R: Not Limited Side Bending R: Not Limited Side Bending L: Not Limited FINGER TO FLOOR DISTANCE: Knee Gait: antalgic / mild trendel REFLEXES R L Biceps (C6): 1-2+ 1-2+ Triceps (C7): 1-2+ 3 Brachioradiolis (C6): 1-2+ 2+ Ankle (S1): 2+ 2+ Knee (L4): 2+ 2+ STRENGTH (0-5): R L Deltoid (AB:C5,6): 5 5 Biceps (Flex:C5,6): 5 5 Wrist Ext.(C6,7): 5 5 Interrosei (C8,T1): 5 5 PSOAS (L2,3): 5 5 Gluteus (L5,S1,2): 5 5 Quadriceps (L3,4): 5 5 EHL (L5): 5 5 Soleus (S1): 5 5 SLR: Seated - Right Negative, Left Negative NEG Bailey's Babinski Negative Negative HIP: ROM is WNL without pain in flexion, extension and internal rotation. FABERES: NA KAMRYN TEST 1) Tenderness: Appropriate 2) Simulation/Axial Loading/ROT: Appropriate 3) Distraction: Seated SLR: Appropriate 4) Reqional Disturbances: Appropriate 5) Overreaction: Appropriate PHYSICAL EXAMINATION: GENERAL APPEARANCE: Well appearing, in no acute distress SKIN: Skin color, texture, turgor normal. No rashes or lesions. HEAD: Normocephalic. No masses, lesions, tenderness or abnormalities EYES: Conjunctivae/corneas clear. Pupils are equally round and reactive to light. Extraocular movements are intact. NECK: Neck supple, no adenopathy; thyroid symmetric, normal size, no bruits. LUNGS: Lungs clear to auscultation, No wheezing or rhonchi HEART: negative. RRR without murmur, gallop, or rubs. No ectopy. ABDOMEN: Abdomen soft, non-tender. Bowel sounds normal. No masses, organomegaly EXTREMITIES: Extremities normal. No deformities, edema, or skin discoloration. Good capillary refill. PULSES: Normal lower extremity pulses. NEURO: Gait normal. Reflexes normal and symmetric. Sensation grossly intact. X-RAYS: MRI lumbar 11/06/20: sp L 5-S1 FUSION T12-L1: Normal. L1-2: Mild disc height loss with diffuse disc bulge. No disc protrusion. Bilateral facet arthropathy. No central canal or neural foraminal stenosis. L2-3: Disc height loss with diffuse disc bulge. Bilateral facet arthropathy. No focal disc protrusion. No significant central canal or neural foraminal stenosis. L3-4: Disc height loss with diffuse disc bulge. No focal disc protrusion. Bilateral facet arthropathy and ligamentum flavum thickening. Mild central canal stenosis and mild left neural foraminal stenosis. No right neural foraminal stenosis. L4-5: Mild diffuse disc bulge. No focal disc protrusion. Bilatera (more content not included)...[facility]05-11-2023 History of Present illness Narrative* Christal Apple MD - 07/01/2022 1:00 PM EDT SUBJECTIVE: Mr. Chiang a 77 year old male referred by other presents with the complaint of bilateral hip pain. Patient reports the date of onset of symptoms as 2 years and describes the location of the pain as midline. The pain is chronic, dull, and rated as moderate, with radiation. PAIN RATIO: (back:leg): Leg > Back Patient reports that LBP is increased by walking and relieved by lying down. Ambulation distance (before needing to sit): no specific amount Standing time (before needing to sit): no specific amount OTHER BACK PAIN SYMPTOMS: NIGHT PAIN: Yes occasionaly PARESTHESIA: No POOR SLEEP: Yes sometimes BOWEL/BLADDER INCONTINENCE OR RETENTION: No ACTIVITY LIMITATIONS: ADLs PREVIOUS TREATMENTS LASTING SIX WEEKS IN THE LAST SIX MONTHS Active conservative therapy lasting 6 weeks in the last six months (see below) 1. Physical therapy: [place] last time 2 weeks 2. Home exercise program after PT: No 3. Occupational therapy: No 4. A physician supervised home exercise program (HEP): No 5. Paleobotanist: yes Passive conservative therapy lasting 6 weeks in the last six months (see below) 1. Medical devises: No 2. Acupuncture: No 3. Tens unit: No 4. Prescription pain medication: Yes 5. NSAIDS: No OCCUPATIONAL HISTORY: retired HISTORY OF TRAUMA/OVERUSE OF AREA: No REVIEW OF SYSTEMS: GENERAL: Negative for malaise, significant weight loss and fever HEENT: Negative for frequent or significant headaches NECK: Negative for lumps, goiter, pain and significant neck swelling RESPIRATORY: Negative for cough, hemoptysis, wheezing, COPD, dyspnea or shortness of breath PAST MEDICAL HISTORY Diagnosis Date Gout Hyperlipidemia Hypothyroidism PAST MEDICAL HISTORY Diagnosis Date Gout Hyperlipidemia Hypothyroidism PAST SURGICAL HISTORY Procedure Laterality Date PAST SURGICAL HISTORY OF Ankle surgery EXAMINATION: [id number]: Scoliosis: No Pelvic Tilt: No Leg Length discrepancy: NA LATERAL: Cervical Lordosis: No Thoracic Kyphosis: No Lumbar Lordosis: No RANGE OF MOTION CERVICAL: Flexion: Not Limited Extension: Not Limited Rotation L: Not Limited Rotation R: Not Limited Side Bending R: Not Limited Side Bending L: Not Limited LUMBAR: Flexion: Not Limited Extension: Not Limited Rotation L: Not Limited Rotation R: Not Limited Side Bending R: Not Limited Side Bending L: Not Limited FINGER TO FLOOR DISTANCE: Knee Gait: antalgic / mild trendel REFLEXES R L Biceps (C6): 1-2+ 1-2+ Triceps (C7): 1-2+ 3 Brachioradiolis (C6): 1-2+ 2+ Ankle (S1): 2+ 2+ Knee (L4): 2+ 2+ STRENGTH (0-5): R L Deltoid (AB:C5,6): 5 5 Biceps (Flex:C5,6): 5 5 Wrist Ext.(C6,7): 5 5 Interrosei (C8,T1): 5 5 PSOAS (L2,3): 5 5 Gluteus (L5,S1,2): 5 5 Quadriceps (L3,4): 5 5 EHL (L5): 5 5 Soleus (S1): 5 5 SLR: Seated - Right Negative, Left Negative NEG Bailey's Babinski Negative Negative HIP: ROM is WNL without pain in flexion, extension and internal rotation. FABERES: NA KAMRYN TEST 1) Tenderness: Appropriate 2) Simulation/Axial Loading/ROT: Appropriate 3) Distraction: Seated SLR: Appropriate 4) Reqional Disturbances: Appropriate 5) Overreaction: Appropriate PHYSICAL EXAMINATION: GENERAL APPEARANCE: Well appearing, in no acute distress SKIN: Skin color, texture, turgor normal. No rashes or lesions. HEAD: Normocephalic. No masses, lesions, tenderness or abnormalities EYES: Conjunctivae/corneas clear. Pupils are equally round and reactive to light. Extraocular movements are intact. NECK: Neck supple, no adenopathy; thyroid symmetric, normal size, no bruits. LUNGS: Lungs clear to auscultation, No wheezing or rhonchi HEART: negative. RRR without murmur, gallop, or rubs. No ectopy. ABDOMEN: Abdomen soft, non-tender. Bowel sounds normal. No masses, organomegaly EXTREMITIES: Extremities normal. No deformities, edema, or skin discoloration. Good capillary refill. PULSES: Normal lower extremity pulses. NEURO: Gait normal. Reflexes normal and symmetric. Sensation grossly intact. X-RAYS: MRI lumbar 11/06/20: sp L 5-S1 FUSION T12-L1: Normal. L1-2: Mild disc height loss with diffuse disc bulge. No disc protrusion. Bilateral facet arthropathy. No central canal or neural foraminal stenosis. L2-3: Disc height loss with diffuse disc bulge. Bilateral facet arthropathy. No focal disc protrusion. No significant central canal or neural foraminal stenosis. L3-4: Disc height loss with diffuse disc bulge. No focal disc protrusion. Bilateral facet arthropathy and ligamentum flavum thickening. Mild central canal stenosis and mild left neural foraminal stenosis. No right neural foraminal stenosis. L4-5: Mild diffuse disc bulge. No focal disc protrusion. Bilateral facet arthropathy with ligamentum flavum thickening. Small amount of fluid within the facet joints at this level. No significant central canal stenosis. Moderate bilateral neural foraminal stenosis. L5-S1: Postsurgical changes from previous posterior spinal fusion at this level. Anterolisthesis ofL5 on S1 measuring 4 mm. Disc height loss at this level. Advanced bilateral facet arthropathy. No focal disc protrusion. No central canal stenosis. Moderate bilateral neural foraminal stenosis. IMPRESSION: Chronic midline low back pain with sciatica, sciatica laterality unspecified (primary encounter diagnosis) History of lumbar fusion Facet arthropathy, cervical Abnormality of gait 77 yo with hx of chronic LBP for many years. He reports having an L 5-S1 PLIF and decompression in 02/2020 (Dr. Jean - [facility]). He fell on his left buttock in 04/2020 - pain in left buttock radiating to thigh. Current sx's include: - mary ellen in Rt hip GTB area - pain in LEFT > Rt PSIS areas with radiation of this pain to post thigh Above sx's are WORSE with standing Best sitting Walking ok for 1 block He has startup pain + Trendelenburg - every step feels tightness in LEFT upper buttock. 5/5 motor. Hip ROM pain free. ABd soft , no pulsatile masses. Has mild hyper reflexia in LEFT UE . No knee or hip surgeries. Does not recall being asymptomatic after his fusion. He has no med records or imaging with him to review. What can be gleaned from his Care Everywhere notes is that he was under the care of Dr. Doty at [facility] and has had SI joint injections at least x 2 and Rt hip greater Trochanteric injections x 3-4 total (q 3 months). Had ZEE prior to surgery. Doing DC ([facility]), PT (equivocal), aquatics ([facility]). No DM Bladder Ca - 3 years ago No CAD Non smoker ETOH - 2 bourbon /day + weight gain PLAN: Discussed the above findings and potential options with the patient. Suggest: - CT lumbar - r/o hardware loosening - if he has no hardware issues consider lumbar facet mnbb (left) on diag / therap basis above and below the fusion - continue aquatics at [place] - he will bring disc of 2020 MRI and Xrays done thus far at outside hospital We can see him following the above. The above exam has been completed by me and the pertinent and negative systems have been updated. I spent a total of 45 minutes on the date of the service which included preparing to see the patient, [id number] patient care, completing clinical documentation, obtaining and/or reviewing separately obtained history, performing a medically appropriate examination, counseling and educating the pat ient/family/caregiver, ordering medications, tests, or procedures, communicating with other HCPs (not separately reported), independently interpreting results (not separately reported), and communicating results to the patient/family/caregiver. Christal Apple MD documented in this encounterBl[facility] Evaluation + Plan note Future Scheduled Tests Laboratory* Electrolyte Panel 03/24/22 [facility] 01-04-2023 Hospital Discharge instructions Patient Education 02/24/2022 13:36:10 Benign Prostatic Hyperplasia Benign Prostatic Hyperplasia Benign prostatic hyperplasia (BPH) is an enlarged prostate gland that is caused by the normal agingprocess and not by cancer. The prostate is a walnut-sized gland that is involved in the production of semen. It is located in front of the rectum and below the bladder. The bladder stores urine and the urethra is the tube that carries the urine out of the body. The prostate may get bigger as a man gets older. An enlarged prostate can press on the urethra. This can make it harder to pass urine. The build-up of urine in the bladder can cause infection. Back pressure and infection may progress to bladder damage and kidney (renal) failure. What are the causes? This condition is part of a normal aging process. However, not all men develop problems from this condition. If the prostate enlarges away from the urethra, urine flow will not be blocked. If it enlarges toward the urethra and compresses it, there will be problems passing urine. What increases the risk? This condition is more likely to develop in men over the age of 50 years. What are the signs or symptoms? Symptoms of this condition include: Getting up often during the night to urinate. Needing to urinate frequently during the day. Difficulty starting urine flow. Decrease in size and strength of your urine stream. Leaking (dribbling) after urinating. Inability to pass urine. This needs immediate treatment. Inability to completely empty your bladder. Pain when you pass urine. This is more common if there is also an infection. Urinary tract infection (UTI). How is this diagnosed? This condition is diagnosed based on your medical history, a physical exam, and your symptoms. Tests will also be done, such as: A post-void bladder scan. This measures any amount of urine that may remain in your bladder after you finish urinating. A digital rectal exam. In a rectal exam, your health care provider checks your prostate by putting a lubricated, gloved finger into your rectum to feel the back of your prostate gland. This exam detects the size of your gland and any abnormal lumps or growths. An exam of your urine (urinalysis). A prostate specific antigen (PSA) screening. This is a blood test used to screen for prostate cancer. An ultrasound. This test uses sound waves to electronically produce a picture of your prostate gland. Your health care provider may refer you to a specialist in kidney and prostate diseases (urologist). How is this treated? Once symptoms begin, your health care provider will monitor your condition (active surveillance or watchful waiting). Treatment for this condition will depend on the severity of your condition. Treatment may include: Observation and yearly exams. This may be the only treatment needed if your condition and symptoms are mild. Medicines to relieve your symptoms, including: ?Medicines to shrink the prostate. ?Medicines to relax the muscle of the prostate. Surgery in severe cases. Surgery may include: ?Prostatectomy. In this procedure, the prostate tissue is removed completely through an open incision or with a laparoscope or robotics. ?Transurethral resection of the prostate (TURP). In this procedure, a tool is inserted through the opening at the tip of the penis (urethra). It is used to cut away tissue of the inner core of the prostate. The pieces are removed through the same opening of the penis. This removes the blockage. ?Transurethral incision (TUIP). In this procedure, small cuts are made in the prostate. This lessens the prostate's pressure on the urethra. ?Transurethral microwave thermotherapy (TUMT). This procedure uses microwaves to create heat. The heat destroys and removes a small amount of prostate tissue. ?Transurethral needle ablation (TUNA). This procedure uses radio frequencies to destroy and remove a small amount of prostate tissue. ?Interstitial laser coagulation (ILC). This procedure uses a laser to destroy and remove a small amount of prostate tissue. ?Transurethral electrovaporization (TUVP). This procedure uses electrodes to destroy and remove a small amount of prostate tissue. ?Prostatic urethral lift. This procedure inserts an implant to push the lobes of the prostate away from the urethra. Follow these instructions at home: Take icze-zdp-kmfnqkl and prescription medicines only as told by your health care provider. Monitor your symptoms for any changes. Contact your health care provider with any changes. Avoid drinking large amounts of liquid before going to bed or out in public. Avoid or reduce how much caffeine or alcohol you drink. Give yourself time when you urinate. Keep all follow-up visits as told by your health care provider. This is important. Contact a health care provider if: You have unexplained back pain. Your symptoms do not get better with treatment. You develop side effects from the medicine you are taking. Your urine becomes very dark or has a bad smell. Your lower abdomen becomes distended and you have trouble passing your urine. Get help right away if: You have a fever or chills. You suddenly cannot urinate. You feel lightheaded, or very dizzy, or you faint. There are large amounts of blood or clots in the urine. Your urinary problems become hard to manage. You develop moderate to severe low back or flank pain. The flank is the side of your body between the ribs and the hip. These symptoms may represent a serious problem that is an emergency. Do not wait to see if the symptoms will go away. Get medical help right away. Call your local emergency services (911 in the [place] Do not drive yourself to the hospital. Summary Benign prostatic hyperplasia (BPH) is an enlarged prostate that is caused by the normal aging process and not by cancer. An enlarged prostate can press on the urethra. This can make it hard to pass urine. This condition is part of a normal aging process and is more likely to develop in men over the age of 50 years. Get help right away if you suddenly cannot urinate. This information is not intended to replace advice given to you by your health care provider. Make sure you discuss any questions you have with your health care provider. Document Released: 02/07/2006 Document Revised: 01/02/2019 Document Reviewed: 03/14/2017 [employer] Patient Education 2020 [employer]. Follow Up Care 12/15/2021 14:19:53 With:LETTY PRAJAPATI, CARIN Brizuela, URL Address: [address] [place] [address] [phone] When: Unknown [facility] [place] 10-25-2022 Hospital Discharge instructions Patient Education 12/15/2021 14:47:34 Benign Prostatic Hyperplasia Benign Prostatic Hyperplasia Benign prostatic hyperplasia (BPH) is an enlarged prostate gland that is caused by the normal agingprocess and not by cancer. The prostate is a walnut-sized gland that is involved in the production of semen. It is located in front of the rectum and below the bladder. The bladder stores urine and the urethra is the tube that carries the urine out of the body. The prostate may get bigger as a man gets older. An enlarged prostate can press on the urethra. This can make it harder to pass urine. The build-up of urine in the bladder can cause infection. Back pressure and infection may progress to bladder damage and kidney (renal) failure. What are the causes? This condition is part of a normal aging process. However, not all men develop problems from this condition. If the prostate enlarges away from the urethra, urine flow will not be blocked. If it enlarges toward the urethra and compresses it, there will be problems passing urine. What increases the risk? This condition is more likely to develop in men over the age of 50 years. What are the signs or symptoms? Symptoms of this condition include: Getting up often during the night to urinate. Needing to urinate frequently during the day. Difficulty starting urine flow. Decrease in size and strength of your urine stream. Leaking (dribbling) after urinating. Inability to pass urine. This needs immediate treatment. Inability to completely empty your bladder. Pain when you pass urine. This is more common if there is also an infection. Urinary tract infection (UTI). How is this diagnosed? This condition is diagnosed based on your medical history, a physical exam, and your symptoms. Tests will also be done, such as: A post-void bladder scan. This measures any amount of urine that may remain in your bladder after you finish urinating. A digital rectal exam. In a rectal exam, your health care provider checks your prostate by putting a lubricated, gloved finger into your rectum to feel the back of your prostate gland. This exam detects the size of your gland and any abnormal lumps or growths. An exam of your urine (urinalysis). A prostate specific antigen (PSA) screening. This is a blood test used to screen for prostate cancer. An ultrasound. This test uses sound waves to electronically produce a picture of your prostate gland. Your health care provider may refer you to a specialist in kidney and prostate diseases (urologist). How is this treated? Once symptoms begin, your health care provider will monitor your condition (active surveillance or watchful waiting). Treatment for this condition will depend on the severity of your condition. Treatment may include: Observation and yearly exams. This may be the only treatment needed if your condition and symptoms are mild. Medicines to relieve your symptoms, including: ?Medicines to shrink the prostate. ?Medicines to relax the muscle of the prostate. Surgery in severe cases. Surgery may include: ?Prostatectomy. In this procedure, the prostate tissue is removed completely through an open incision or with a laparoscope or robotics. ?Transurethral resection of the prostate (TURP). In this procedure, a tool is inserted through the opening at the tip of the penis (urethra). It is used to cut away tissue of the inner core of the prostate. The pieces are removed through the same opening of the penis. This removes the blockage. ?Transurethral incision (TUIP). In this procedure, small cuts are made in the prostate. This lessens the prostate's pressure on the urethra. ?Transurethral microwave thermotherapy (TUMT). This procedure uses microwaves to create heat. The heat destroys and removes a small amount of prostate tissue. ?Transurethral needle ablation (TUNA). This procedure uses radio frequencies to destroy and remove a small amount of prostate tissue. ?Interstitial laser coagulation (ILC). This procedure uses a laser to destroy and remove a small amount of prostate tissue. ?Transurethral electrovaporization (TUVP). This procedure uses electrodes to destroy and remove a small amount of prostate tissue. ?Prostatic urethral lift. This procedure inserts an implant to push the lobes of the prostate away from the urethra. Follow these instructions at home: Take cqmk-vpj-cduywww and prescription medicines only as told by your health care provider. Monitor your symptoms for any changes. Contact your health care provider with any changes. Avoid drinking large amounts of liquid before going to bed or out in public. Avoid or reduce how much caffeine or alcohol you drink. Give yourself time when you urinate. Keep all follow-up visits as told by your health care provider. This is important. Contact a health care provider if: You have unexplained back pain. Your symptoms do not get better with treatment. You develop side effects from the medicine you are taking. Your urine becomes very dark or has a bad smell. Your lower abdomen becomes distended and you have trouble passing your urine. Get help right away if: You have a fever or chills. You suddenly cannot urinate. You feel lightheaded, or very dizzy, or you faint. There are large amounts of blood or clots in the urine. Your urinary problems become hard to manage. You develop moderate to severe low back or flank pain. The flank is the side of your body between the ribs and the hip. These symptoms may represent a serious problem that is an emergency. Do not wait to see if the symptoms will go away. Get medical help right away. Call your local emergency services (911 in the [place] Do not drive yourself to the hospital. Summary Benign prostatic hyperplasia (BPH) is an enlarged prostate that is caused by the normal aging process and not by cancer. An enlarged prostate can press on the urethra. This can make it hard to pass urine. This condition is part of a normal aging process and is more likely to develop in men over the age of 50 years. Get help right away if you suddenly cannot urinate. This information is not intended to replace advice given to you by your health care provider. Make sure you discuss any questions you have with your health care provider. Document Released: 02/07/2006 Document Revised: 01/02/2019 Document Reviewed: 03/14/2017 [employer] Patient Education 2020 [employer] [facility] 10-18-2022 Evaluation note* Encounter Date Diagnosis Assessment Notes Treatment Notes Treatment Clinical Notes Nov, Right upper quadrant pain (ICD-10 - R10.11) [facility] Other 09-15-2022 Evaluation note* Encounter Date Diagnosis Assessment Notes Treatment Notes Treatment Clinical Notes Oct, Irritable bowel syndrome with constipation (ICD-10 - K58.1) PATIENT STATES HE IS DOING WELL AT THIS TIME. DOES USE A SUPPOSITORY NEEDED. [employer] Other 08-18-2022 Hospital Discharge instructions Patient Education 10/08/2021 12:22:04 [facility] - Cystoscopy with Botox Injection Discharge Instructions (Custom) Cystoscopy with Botox injection Voiding after the procedure: there may be some pain, burning, urgency, frequency and blood tinged urine following the procedure. These symptoms usually resolve within 2-5 days. Drink the amount of fluid it takes to keep the urine pink to yellow or clear in color. Drinking enough water and fluids will help to ease any discomfort after your procedure. It may take a few days to a week to notice a gradual improvement in the overactive bladder symptoms. If you are having problems that seem out of the ordinary, please call. If unable to contact your physician and you feel it is an emergency, go to the nearest emergency room or call 911 Do not lift more than fifteen pounds for 1-2 days. If you see a lot of blood, you probably did too much. Diet you may resume your normal diet. Pain control You may take extra strength Tylenol or Motrin for discomfort. Call if you have a fever over 100 degrees. Follow Up Care 09/15/2021 13:23:42 With:Flavio Chiang Address: [facility] [address] [place] [phone]- Business (1) When:12/08/2021 12:22:19 Comments:PVR with next visit. [facility]06-28-2022 Hospital Discharge instructions Patient Education 08/18/2021 11:20:26 Overactive Bladder, Adult Overactive Bladder, Adult Overactive bladder refers to a condition in which a person has a sudden need to pass urine. The person may leak urine if he or she cannot get to the bathroom fast enough (urinary incontinence). A person with this condition may also wake up several times in the night to go to the bathroom. Overactive bladder is associated with poor nerve signals between your bladder and your brain. Your bladder may get the signal to empty before it is full. You may also have very sensitive muscles thatmake your bladder squeeze too soon. These symptoms might interfere with daily work or social activities. What are the causes? This condition may be associated with or caused by: Urinary tract infection. Infection of nearby tissues, such as the prostate. Prostate enlargement. Surgery on the uterus or urethra. Bladder stones, inflammation, or tumors. Drinking too much caffeine or alcohol. Certain medicines, especially medicines that get rid of extra fluid in the body (diuretics). Muscle or nerve weakness, especially from: ?A spinal cord injury. ?Stroke. ?Multiple sclerosis. ?Parkinson's disease. Diabetes. Constipation. What increases the risk? You may be at greater risk for overactive bladder if you: Are an older adult. Smoke. Are going through menopause. Have prostate problems. Have a neurological disease, such as stroke, dementia, Parkinson's disease, or multiple sclerosis (MS). Eat or drink things that irritate the bladder. These include alcohol, spicy food, and caffeine. Are overweight or obese. What are the signs or symptoms? Symptoms of this condition include: Sudden, strong urge to urinate. Leaking urine. Urinating 8 or more times a day. Waking up to urinate 2 or more times a night. How is this diagnosed? Your health care provider may suspect overactive bladder based on your symptoms. He or she will diagnose this condition by: A physical exam and medical history. Blood or urine tests. You might need bladder or urine tests to help determine what is causing your overactive bladder. You might also need to see a health care provider who specializes in urinary tract problems (urologist). How is this treated? Treatment for overactive bladder depends on the cause of your condition and whether it is mild or severe. You can also make lifestyle changes at home. Options include: Bladder training. This may include: ?Learning to control the urge to urinate by following a schedule that directs you to urinate at regular intervals (timed voiding). ?Doing Kegel exercises to strengthen your pelvic floor muscles, which support your bladder. Toning these muscles can help you control urination, even if your bladder muscles are overactive. Special devices. This may include: ?Biofeedback, which uses sensors to help you become aware of your body's signals. ?Electrical stimulation, which uses electrodes placed inside the body (implanted) or outside the body. These electrodes send gentle pulses of electricity to strengthen the nerves or muscles that control the bladder. ?Women may use a plastic device that fits into the vagina and supports the bladder (pessary). Medicines. ?Antibiotics to treat bladder infection. ?Antispasmodics to stop the bladder from releasing urine at the wrong time. ?Tricyclic antidepressants to relax bladder muscles. ?Injections of botulinum toxin type A directly into the bladder tissue to relax bladder muscles. Lifestyle changes. This may include: ?Weight loss. Talk to your health care provider about weight loss methods that would work best for you. ?Diet changes. This may include reducing how much alcohol and caffeine you consume, or drinking fluids at different times of the day. ?Not smoking. Do not use any products that contain nicotine or tobacco, such as cigarettes and e-cigarettes. If you need help quitting, ask your health care provider. Surgery. ?A device may be implanted to help manage the nerve signals that control urination. ?An electrode may be implanted to stimulate electrical signals in the bladder. ?A procedure may be done to change the shape of the bladder. This is done only in very severe cases. Follow these instructions at home: Lifestyle Make any diet or lifestyle changes that are recommended by your health care provider. These may include: ?Drinking less fluid or drinking fluids at different times of the day. ?Cutting down on caffeine or alcohol. ?Doing Kegel exercises. ?Losing weight if needed. ?Eating a healthy and balanced diet to prevent constipation. This may include: ?Eating foods that are high in fiber, such as fresh fruits and vegetables, whole grains, and beans. ?Limiting foods that are high in fat and processed sugars, such as fried and sweet foods. General instructions Take aulm-avi-fyletoz and prescription medicines only as told by your health care provider. If you were prescribed an antibiotic medicine, take it as told by your health care provider. Do notstop taking the antibiotic even if you start to feel better. Use any implants or pessary as told by your health care provider. If needed, wear pads to absorb urine leakage. Keep a journal or log to track how much and when you drink and when you feel the need to urinate. This will help your health care provider monitor your condition. Keep all follow-up visits as told by your health care provider. This is important. Contact a health care provider if: You have a fever. Your symptoms do not get better with treatment. Your pain and discomfort get worse. You have more frequent urges to urinate. Get help right away if: You are not able to control your bladder. Summary Overactive bladder refers to a condition in which a person has a sudden need to pass urine. Several conditions may lead to an overactive bladder. Treatment for overactive bladder depends on the cause and severity of your condition. Follow your health care provider's instructions about lifestyle changes, doing Kegel exercises, keeping a journal, and taking medicines. This information is not intended to replace advice given to you by your health care provider. Make sure you discuss any questions you have with your health care provider. Document Released: 12/04/2009 Document Revised: 05/31/2019 Document Reviewed: 02/23/2018 [employer] Patient Education 2020 [employer]. Follow Up Care 05/05/2021 11:50:23 With:Андрей Capone MD, Flavio Encinas [facility] Address: [facility] [address], [place] [phone] When: Unknown [facility] 06-22-2022 Evaluation note* Encounter Date Diagnosis Assessment Notes Treatment Notes Treatment Clinical Notes Jul, Right upper quadrant pain (ICD-10 - R10.11) [facility] Other 01-04-2022 Evaluation note* Encounter Date Diagnosis Assessment Notes Treatment Notes Treatment Clinical Notes Feb, Spondylolisthesis at L5-S1 level (ICD-10 - M43.17) This patient presents again complaining about his left hip. His last x-ray was from June 2020 at which time he has good interbody cage placement and hardware placement. The patient does not know if he has had a new MRI of his lumbar spine he also does not know if any injections that have been done have been in his left hip. We will try to obtain this information as well the patient he will call the office if he needs a new MRI and one has not been done since surgery I will order an MRI of the lumbar spine with and without gadolinium including a 6 view back. I still suspect this is hip pathology but I need to evaluate the spine for further pathology. Feb, Left hip pain (ICD-1 0 - M25.552) [facility] Other 07-29-2016 History general Narrative - Reported* Type Description Date Medical History 09/19/2015 EGD/Colon oscopy- Normal EGD. Aida Colon to cecum and terminal ileum Medical History angioedema Surgical History left ankle surgery 1997 Surgical History left ankle surgery 2001 Surgical History EGD/Colonoscopy [facility]-IBS, Normal EGD 2015 Surgical History EGD/Colonosocpy 05/31/18 Surgical History Cystoscopy w/ Transu rethral Resection of Bladder Tumor 06/20/18 Surgical History Cystoscopy w/ Transu rethral Resection of Bladder Tumor 08/30/18 Surgical History Left L5-S1 ZEE's 04/13/2019 Surgical History TLIF-[facility] Surgical History Prostate surgery Surgical History BACK SURGERY 02/2020 Surgical History UROLIFT 2020 Hospitalization History see surgical hx [facility] Other evaluation + Plan note No data available for this section [facility] evaluation + Plan note Future Appointments Appointment Date:12/08/2021 11:00:00 AM Scheduled Provider:Flavio Chiang Jr., MD Location:[facility] Appointment Type:URO Office Visit Diagnostic Tests Pending * [facility]rine [facility]ments Appointment Date:02/24/2022 03:00:00 PM Scheduled Provider:CARIN SAENZ PA-C Location:[facility] Appointment Type:URO Office Visit [facility] Evaluation + Plan note Future Appointments Appointment Date:02/11/2023 11:00:00 AM Scheduled Provider:Albert MO MD Location:[facility] Appointment Type:URO Office Visit Diagnostic Tests Pending * Electrolyte Panel 08/10/22 Future Scheduled Tests Laboratory* Electrolyte Panel 03/24/22 [facility] Evaluation + Plan note Future Appointments Appointment Date:02/11/2023 11:00:00 AM Scheduled Provider:Albert MO MD Location:[facility] Appointment Type:URO Office Visit Diagnostic Tests Pending * [facility] [facility]) 08/10/22 Future Scheduled Tests Laboratory* [facility] Chronic midline low back pain with sciatica, sciatica laterality unspecified- Primary History of lumbar fusion Facet arthropathy, cervical Cervical spondylosis without myelopathy Abnormality of gait [facility] Diagnosis Abnormality of gait Cervical disc disorder with radiculopathy Brachial neuritis or radiculitis nos History of lumbar fusion Chronic midline low back pain with sciatica, sciatica laterality unspecified documented [facility] this [facility]* Diagnosis Abnormality of gait- Primary Cervical disc disorder with radiculopathy Brachial neuritis or radiculitis nos History of lumbar fusion Chronic midline low back pain with sciatica, sciatica laterality unspecified Abnormality of gait Cervical disc disorder with radiculopathy Brachial neuritis or radiculitis nos History of lumbar fusion Chronic midline low back pain with sciatica, sciatica laterality unspecified documented [facility] this [facility]* Diagnosis Chronic midline low back pain with sciatica, sciatica laterality unspecified History of lumbar fusion documented [facility] this [facility] noteNo assessment information [facility] Work Phone: Evaluation noteNo [employer] Other Evaluation note* Diagnosis Onset Date Resolution Status Lumbar stenosis with neurogenic claudication acute Other chronic pain acute Sacroiliitis acute Lumbar stenosis with neurogenic claudication acute Other chronic pain acute Other low back pain acute Sacroiliitis acute [facility] Work Phone: Evaluation note* Diagnosis Onset Date Resolution Status Lumbar stenosis with neurogenic claudication acute Other chronic pain acute Sacroiliitis acute Degenerative joint disease of left hip acute Lumbar stenosis with neurogenic claudication acute Other chronic pain acute Other low back pain acute Sacroiliitis acute [facility] Work Phone: Evaluation note* Diagnosis Onset Date Resolution Status Lumbar stenosis with neurogenic claudication acute Other chronic pain acute Sacroiliitis acute Degenerative joint disease of left hip acute Lumbar stenosis with neurogenic claudication acute Other chronic pain acute Other low back pain acute Sacroiliitis acute Lumbar stenosis with neurogenic claudication acute Other chronic pain acute Sacroiliitis acute [facility] Work Phone: Evaluation note* Diagnosis Onset Date Resolution Status Lumbar stenosis with neurogenic claudication acute Other chronic pain acute Sacroiliitis acute Degenerative joint disease of left hip acute Lumbar stenosis with neurogenic claudication acute Other chronic pain acute Other low back pain acute Sacroiliitis acute Lumbar stenosis with neurogenic claudication acute Other chronic pain acute [facility] Work Phone: Evaluation note* Diagnosis Onset Date Resolution Status Lumbar stenosis with neurogenic claudication acute Other chronic pain acute Sacroiliitis acute Degenerative joint disease of left hip acute Lumbar stenosis with neurogenic claudication acute Other chronic pain acute Other low back pain acute Sacroiliitis acute Lumbar stenosis with neurogenic claudication acute Other chronic pain acute Lumbar stenosis with neurogenic claudication acute Other chronic pain acute [facility] Work Phone: Evaluation note* Diagnosis Onset Date Resolution Status Degenerative joint disease of left hip acute Lumbar stenosis with neurogenic claudication acute Other chronic pain acute Other low back pain acute Sacroiliitis acute Lumbar stenosis with neurogenic claudication acute Other chronic pain acute Lumbar stenosis with neurogenic claudication acute Other chronic pain acute Lumbar stenosis with neurogenic claudication acute Other chronic pain acute [facility] Work Phone: Evaluation note* Diagnosis Onset Date Resolution Status Lumbar stenosis with neurogenic claudication acute Other chronic pain acute Lumbar stenosis with neurogenic claudication acute Other chronic pain acute Lumbar stenosis with neurogenic claudication acute Other chronic pain acute Sacroiliitis acute [facility] Work Phone: Evaluation note* Diagnosis Onset Date Resolution Status Lumbar stenosis with neurogenic claudication acute Other chronic pain acute Lumbar stenosis with neurogenic claudication acute Other chronic pain acute Sacroiliitis acute Lumbar stenosis with neurogenic claudication acute Other chronic pain acute Sacroiliitis acute [facility] Work Phone: Evaluation note* Diagnosis Onset Date Resolution Status Lumbar stenosis with neurogenic claudication acute Other chronic pain acute Sacroiliitis acute Lumbar stenosis with neurogenic claudication acute Other chronic pain acute Sacroiliitis acute [facility] Work Phone: Evaluation note* Diagnosis Onset Date Resolution Status Lumbar stenosis with neurogenic claudication acute Other chronic pain acute Sacroiliitis acute Lumbar stenosis with neurogenic claudication acute Other chronic pain acute Sacroiliitis acute Acute idiopathic urticaria a cute [facility] Work Phone: Evaluation note* Diagnosis Onset Date Resolution Status Lumbar stenosis with neurogenic claudication acute Other chronic pain acute Sacroiliitis acute Lumbar stenosis with neurogenic claudication acute Other chronic pain acute Sacroiliitis acute Acute idiopathic urticaria a cute History of lumbar fusion acu te Lumbar stenosis acute Piriformis syndrome of left side acute [facility] Work Phone: Evaluation note* Diagnosis Onset Date Resolution Status Lumbar stenosis with neurogenic claudication acute Other chronic pain acute Sacroiliitis acute Lumbar stenosis with neurogenic claudication acute Other chronic pain acute Sacroiliitis acute Acute idiopathic urticaria a cute History of lumbar fusion acu te Lumbar stenosis acute Piriformis syndrome of left side acute Acute idiopathic urticaria a cute Lumbar stenosis with neurogenic claudication acute Other chronic pain acute Sacroiliitis acute [facility] Work Phone: Evaluation note* Diagnosis Onset Date Resolution Status Lumbar stenosis with neurogenic claudication acute Other chronic pain acute Sacroiliitis acute Acute idiopathic urticaria a cute History of lumbar fusion acu te Lumbar stenosis acute Piriformis syndrome of left side acute Acute idiopathic urticaria a cute Lumbar stenosis with neurogenic claudication acute Other chronic pain acute Sacroiliitis acute History of lumbar fusion acu te Lumbar stenosis acute Piriformis syndrome of left side acute [facility] Work Phone: Evaluation note* Diagnosis Abnormality of gait Cervical disc disorder with radiculopathy Brachial neuritis or radiculitis nos [facility] No data available for this section [facility] instructionsAmbulatory Orders* Referral to Sports Medicine Location: None Selected [facility] Work Phone: Progress note No data available for this section [facility] reason for referral (narrative)* Diagnostic Procedure Only (Routine) - Authorized Specialty Diagnoses / Procedures Referred By Contac t Referred To Contact XR IMAGING Diagnoses Facet arthropathy, cervical Abnormality of gait Procedures XR CERV OTHER 4V AP/LAT/OBL RADEX SPINE CERVICAL 4 OR 5 VIEWS Christal Apple MD [address] [place] [address] Xr Imaging Referral ID Status Reason Start Date Expiration Date Visits Requested Visits Authorized [id number] Authorized Auto-Generat ed Referral 07/01/2022 07/31/2023 1 1 * Diagnostic Procedure Only (Routine) - Authorized Specialty Diagnoses / Procedures Referred By Contac t Referred To Contact XR IMAGING Diagnoses Chronic midline low back pain with sciatica, sciatica laterality unspecified History of lumbar fusion Procedures XR LUMBAR MOTION 4V AP/LAT/ FLEX/EXT RADEX SPINE LUMBOSACRAL MINIMUM 4 VIEWS Christal Apple MD [address] [place] [address] Xr Imaging Referral ID Status Reason Start Date Expiration Date Visits Requested Visits Authorized [id number] Authorized Auto-Generat ed Referral 07/01/2022 07/31/2023 1 1 * MRI/CT (Routine) - Authorized Specialty Diagnoses / Procedures Referred By Contac t Referred To Contact CT IMAGING Diagnoses Chronic midline low back pain with sciatica, sciatica laterality unspecified History of lumbar fusion Procedures CT LUMBAR SPINE WO IVCON CT LUMBAR SPINE W/O CONTRAST MATERIAL Christal Apple MD [address] [facility] [place] [address] [place] [address] Ct Imaging Referral ID Status Reason Start Date Expiration Date Visits Requested Visits Authorized [id number] Authorized Auto-Generat ed Referral 07/01/2022 07/31/2023 1 1 [facility] Summary Purpose Family History Relationship Condition Age at Onset Recorded Date/T anjum father Malignant neoplasm of lung Unknown brother Type 2 diabetes mellitus Unknown Relationship Condition Age at Onset Recorded Date/T anjum father Malignant neoplasm of lung Unknown brother Type 2 diabetes mellitus Unknown brother Diabetes mellitus Unknown father Unknown Malignant neoplasm Unknown family member Unknown Not Specified Diabetes mellitus Unknown Unknown sister Unknown Relationship Condition Age at Onset Recorded Date/T anjum father Malignant neoplasm of lung Unknown Unknown Malignant neoplasm Unknown brother Type 2 diabetes mellitus Unknown brother Diabetes mellitus Unknown family member Unknown Not Specified Diabetes mellitus Unknown sister Unknown Relationship Condition Age at Onset Recorded Date/T anjum father Unknown Malignant neoplasm of lung Unknown brother Diabetes mellitus Unknown family member Unknown Not Specified Diabetes mellitus Unknown Unknown sister Unknown Relationship Condition Age at Onset Recorded Date/T anjum father Unknown Malignant neoplasm of lung Unknown brother Diabetes mellitus Unknown family member Unknown mother Diabetes mellitus Unknown Unknown sister Unknown Advance Directives Advance Directive Response Recorded Date/ Time Advance Directives No May 29 10:21am Advance Directive Response Recorded Date/ Time Advance Directives No May 29 9:21am Reason for Referral Reason evaluate and treat f or sacroiliac pain Diagnosis 1 Radiculopathy, lumba r region (M54.16) Referral Organization [facility] Referring Provider First Name Janes Referring Provider Last Name Ted Referring Provider Specialty Neurologica l Surgery Referred Organization [facility] [place] Referred Provider Zacarias Wylie Referred Address [address] [place],[phone] Referred Provider Specialty Pain Medicin e Referral Priority Routine Reason *FU 01/27 EMG BLE Diagnosis 1 Radiculopathy, lumba r region (M54.16) Referral Organization [facility] Referring Provider First Name Elsie Referring Provider Last Name Taylor Referring Provider Specialty Nurse Pract itioner Referred Organization [facility] Referred Provider Darnell Coyle Referred Address [address] [place],[phone] Referred Provider Specialty Neurology Referral Priority Routine General Notes Carin Reyes 05:37:12 PM >received today, holding for ov note to be locked Carin Reyes 01/17/2023 01:24:35 PM >note is not locked yet Carin Reyes 01/18/2023 03:36:48 PM >note is not locked yet Carin Reyes 01/19/2023 11:38:20 AM >note not locked yet Carin Reyes 01/20/2023 03:28:10 PM >ov note is now completed and locked, p2p being sent out at this time for scheduling Specialty Diagnoses / Procedures Referred By Michael vick Referred To Contact CT IMAGING Diagnoses Chronic midline low back pain with sciatica, sciatica laterality unspecified History of lumbar fusion Procedures CT LUMBAR SPINE WO IVCON CT LUMBAR SPINE W/O CONTRAST MATERIAL Christal Apple MD [address] [place] [address] Ct Imaging Referral ID Status Reason Start Date Expiration Date V isits Requested Visits Authorized [id number] Closed Auto-Generate d Referral 07/01/2022 07/31/2023 1 1 Specialty Diagnoses / Procedures Referred By Michael vick Referred To Contact MR IMAGING Diagnoses Abnormality of gait Cervical disc disorder with radiculopathy Procedures MRI CERVICAL SPINE WO IVCON MRI SPINAL CANAL CERVICAL W/O CONTRAST Elsie Garcia, F[employer]IN[employer] [address] [place] [address] Mr Imaging Referral ID Status Reason Start Date Expiration Date Visits Requested Visits Authorized [id number] Pending Review Auto-Generat ed Referral 07/21/2022 08/20/2023 1 1 Chief Complaint and Reason for Visit Chief Complaint M54.16 Chief Complaint M54.16 m54.16 Chief Complaint m54.16 Follow Up Mri Results Emg Results [address] Ted Olson roiliac Pain 61035 FOLLOW UP AFTER ROMY SI JOINT INJ/DS F/U AFTER PAIN MGMT Reason for Visit Lumbar stenosis with neurogenic claudication Other chronic pain Sacroiliitis Lumbar stenosis with neurogenic claudication Other chronic pain Other low back pain Sacroiliitis Chief Complaint Consult Dr Ted hernandez Pain 00398 FOLLOW UP AFTER ROMY SI JOINT INJ/DS F/U AFTER PAIN MGMT LUMBAR PAIN Reason for Visit Lumbar stenosis with neurogenic claudication Other chronic pain Sacroiliitis Degenerative joint disease of left hip Lumbar stenosis with neurogenic claudication Other chronic pain Other low back pain Sacroiliitis Chief Complaint Consult Dr Ted hernandez Pain Back Pain 32088 FOLLOW UP AFTER ROMY SI JOINT INJ/DS F/U AFTER PAIN MGMT LUMBAR PAIN LUMBAR PAIN F/U ROMY LUMBAR TRANSFORAMINAL VS CAUDAL EPIDURAL Reason for Visit Lumbar stenosis with neurogenic claudication Other chronic pain Sacroiliitis Degenerative joint disease of left hip Lumbar stenosis with neurogenic claudication Other chronic pain Other low back pain Sacroiliitis Lumbar stenosis with neurogenic claudication Other chronic pain Sacroiliitis Chief Complaint Consult Dr Ted hernandez Pain Back Pain 39826 FOLLOW UP AFTER ROMY SI JOINT INJ/DS F/U AFTER PAIN MGMT LUMBAR PAIN LUMBAR PAIN F/U ROMY LUMBAR TRANSFORAMINAL VS CAUDAL EPIDURAL LUMBAR PAIN LUMBAR PAIN Reason for Visit Lumbar stenosis with neurogenic claudication Other chronic pain Sacroiliitis Degenerative joint disease of left hip Lumbar stenosis with neurogenic claudication Other chronic pain Other low back pain Sacroiliitis Lumbar stenosis with neurogenic claudication Other chronic pain Chief Complaint [id number] FOLLOW UP AFTER ROMY SI JOINT INJ/DS F/U AFTER PAIN MGMT LUMBAR PAIN LUMBAR PAIN F/U ROMY LUMBAR TRANSFORAMINAL VS CAUDAL EPIDURAL LUMBAR PAIN LUMBAR PAIN F/U CAUDAL EPIDURAL STEROID INJECTION Reason for Visit Lumbar stenosis with neurogenic claudication Other chronic pain Sacroiliitis Degenerative joint disease of left hip Lumbar stenosis with neurogenic claudication Other chronic pain Other low back pain Sacroiliitis Lumbar stenosis with neurogenic claudication Other chronic pain Lumbar stenosis with neurogenic claudication Other chronic pain Chief Complaint F/U AFTER PAIN MGMT LUMBAR PAIN LUMBAR PAIN F/U ROMY LUMBAR TRANSFORAMINAL VS CAUDAL EPIDURAL LUMBAR PAIN LUMBAR PAIN F/U CAUDAL EPIDURAL STEROID INJECTION 6 WEEK RECHECK Reason for Visit Degenerative joint d isease of left hip Lumbar stenosis with neurogenic claudication Other chronic pain Other low back pain Sacroiliitis Lumbar stenosis with neurogenic claudication Other chronic pain Lumbar stenosis with neurogenic claudication Other chronic pain Lumbar stenosis with neurogenic claudication Other chronic pain Chief Complaint F/U ROMY LUMBAR TRANS FORAMINAL VS CAUDAL EPIDURAL LUMBAR PAIN LUMBAR PAIN F/U CAUDAL EPIDURAL STEROID INJECTION 6 WEEK RECHECK Back Pain Back Pain Reason for Visit Lumbar stenosis with neurogenic claudication Other chronic pain Lumbar stenosis with neurogenic claudication Other chronic pain Lumbar stenosis with neurogenic claudication Other chronic pain Sacroiliitis Chief Complaint LUMBAR PAIN LUMBAR PAIN F/U CAUDAL EPIDURAL STEROID INJECTION 6 WEEK RECHECK Back Pain Back Pain F/U AFTER LEFT SI INJ Reason for Visit Lumbar stenosis with neurogenic claudication Other chronic pain Lumbar stenosis with neurogenic claudication Other chronic pain Sacroiliitis Lumbar stenosis with neurogenic claudication Other chronic pain Sacroiliitis Chief Complaint 6 WEEK RECHECK Back Pain Back Pain F/U AFTER LEFT SI INJ hives Reason for Visit Lumbar stenosis with neurogenic claudication Other chronic pain Sacroiliitis Lumbar stenosis with neurogenic claudication Other chronic pain Sacroiliitis Chief Complaint 6 WEEK RECHECK Back Pain Back Pain F/U AFTER LEFT SI INJ hives spinal stenosis Reason for Visit Lumbar stenosis with neurogenic claudication Other chronic pain Sacroiliitis Lumbar stenosis with neurogenic claudication Other chronic pain Sacroiliitis Acute idiopathic urticaria Chief Complaint 6 WEEK RECHECK Back Pain Back Pain F/U AFTER LEFT SI INJ hives spinal stenosis Rash on left forearm Reason for Visit Lumbar stenosis with neurogenic claudication Other chronic pain Sacroiliitis Lumbar stenosis with neurogenic claudication Other chronic pain Sacroiliitis Acute idiopathic urticaria History of lumbar fusion Lumbar stenosis Piriformis syndrome of left side Chief Complaint 6 WEEK RECHECK Back Pain Back Pain F/U AFTER LEFT SI INJ hives spinal stenosis Rash on left forearm LEFT PIRIFORMIS INJECTION/CJ Reason for Visit Lumbar stenosis with neurogenic claudication Other chronic pain Sacroiliitis Lumbar stenosis with neurogenic claudication Other chronic pain Sacroiliitis Acute idiopathic urticaria History of lumbar fusion Lumbar stenosis Piriformis syndrome of left side Chief Complaint 6 WEEK RECHECK Back Pain Back Pain F/U AFTER LEFT SI INJ hives spinal stenosis Rash on left forearm LEFT PIRIFORMIS INJECTION/CJ F/U LEFT PIRIFORMIS INJ Reason for Visit Lumbar stenosis with neurogenic claudication Other chronic pain Sacroiliitis Lumbar stenosis with neurogenic claudication Other chronic pain Sacroiliitis Acute idiopathic urticaria History of lumbar fusion Lumbar stenosis Piriformis syndrome of left side Acute idiopathic urticaria Lumbar stenosis with neurogenic claudication Other chronic pain Sacroiliitis Chief Complaint Back Pain Back Pain F/U AFTER LEFT SI INJ hives spinal stenosis Rash on left forearm LEFT PIRIFORMIS INJECTION/CJ F/U LEFT PIRIFORMIS INJ follow up after injection Reason for Visit Lumbar stenosis with neurogenic claudication Other chronic pain Sacroiliitis Acute idiopathic urticaria History of lumbar fusion Lumbar stenosis Piriformis syndrome of left side Acute idiopathic urticaria Lumbar stenosis with neurogenic claudication Other chronic pain Sacroiliitis History of lumbar fusion Lumbar stenosis Piriformis syndrome of left side Additional Source Comments (unrecognized sect ion and content) No Status Records FoundNo Status Records FoundNo Status Records FoundNo Status Records FoundNo Status Records FoundNo Status Records FoundNo Status Records Found INFORMATION SOURCE (unrecogn ized section and content) DATE CREATED AUTHOR 10/22/2018 [facility] DATE CREATED AUTHOR AUTHOR'S ORGANIZ ATION 03/17/2022 [facility] Specialist DATE CREATED AUTHOR AUTHOR'S ORGANIZ ATION 11/24/2022 [facility] DATE CREATED AUTHOR AUTHOR'S ORGANIZ ATION 08/22/2023 [facility] DATE CREATED AUTHOR AUTHOR'S ORGANIZ ATION 08/24/2023 [facility] DATE CREATED AUTHOR AUTHOR'S ORGANIZ ATION 08/25/2023 [facility] EPIC DATE CREATED AUTHOR AUTHOR'S ORGANIZ ATION 11/03/2023 [facility] REASON FOR VISIT (unrecogniz ed section and content) Reason Comments Recheck Reason Comments Schedule Injection Reason Comments Radiology MRI Reason Comments Patient Question Schedule Injection Specialty Diagnoses / Procedures Referred By Contac t Referred To Contact CT IMAGING Diagnoses Chronic midline low back pain with sciatica, sciatica laterality unspecified History of lumbar fusion Procedures CT LUMBAR SPINE WO IVCON CT LUMBAR SPINE W/O CONTRAST MATERIAL Christal Apple MD [address] [place] [address] Ct Imaging Referral ID Status Reason Start Date Expiration Date V isits Requested Visits Authorized [id number] Closed Auto-Generate d Referral 07/01/2022 07/31/2023 1 1 Reason Comments Pain Procedure Response & follow up Caud al epidural steroid injection Post Op Reason Comments Patient Update Specialty Diagnoses / Procedures Referred By Contac t Referred To Contact MR IMAGING Diagnoses Abnormality of gait Cervical disc disorder with radiculopathy Procedures MRI CERVICAL SPINE WO IVCON MRI SPINAL CANAL CERVICAL W/O CONTRAST Eslie Garcia, [employer] [address] [place] [address] [place] [address] Referral ID Status Reason Start Date Expiration Date V isits Requested Visits Authorized [id number] Closed Auto-Generate d Referral 07/21/2022 08/20/2023 1 1 Care Team (unrecognized sect ion and content) Hospital Medical Biller Relationship Specialty Start Date End Date Neo Raymond II [address] [place] [address] PCP - General Internal Medicine 02/23/05 Phoebe Lee PA-C [address] [place] [address] Referring Pain Management 06/18/22 Hospital Medical Biller Relationship Specialty Start Date End Date Neo Raymond II [address] [place] [address] PCP - General Internal Medicine 02/23/05 Phoebe Lee PA-C [address] [place] [address] Referring Pain Management 06/18/22 Hospital Medical Biller Relationship Specialty Start Date End Date Neo Raymond II [address] [place] [address] PCP - General Internal Medicine 02/23/05 Phoebe Lee PA-C [address] [place] [address] Referring Pain Management 06/18/22 Hospital Medical Biller Relationship Specialty Start Date End Date Neo Raymond II [address] [place] [address] PCP - General Internal Medicine 02/23/05 Phoebe Lee PA-C [address] [place] [address] Referring Pain Management 06/18/22 Hospital Medical Biller Relationship Specialty Start Date End Date Neo Raymond II [address] [place] [address] PCP - General Internal Medicine 02/23/05 Phoebe Lee PA-C [address] [place] [address] Referring Pain Management 06/18/22 Hospital Medical Biller Relationship Specialty Start Date End Date Neo Raymond II [address] [place] [address] PCP - General Internal Medicine 02/23/05 Phoebe Lee PA-C [address] [place] [address] Referring Pain Management 06/18/22 Hospital Medical Biller Relationship Specialty Start Date End Date Neo Raymond II, MD [address] [place] [address] PCP - General Internal Medicine 02/23/05 Phoebe Lee PA-C [address] [place] [address] Referring Pain Management 06/18/22 Hospital Medical Biller Relationship Specialty Start Date End Date Neo Raymond II, MD [address] [place] [address] PCP - General Internal Medicine 02/23/05 Phoebe Lee PA-C [address] [place] [address] Referring Pain Management 06/18/22 Hospital Medical Biller Relationship Specialty Start Date End Date Neo Raymond II, MD [address] [facility] [address] [place] [address] PCP - General Internal Medicine 02/23/05 Phoebe Lee PA-C [address] [place] [address] Referring Pain Management 06/18/22 Hospital Medical Biller Relationship Specialty Start Date End Date Neo Raymond II, MD [address] [facility] [address] [place] [address] PCP - General Internal Medicine 02/23/05 Phoebe Lee PA-C [address] [place] [address] Referring Pain Management 06/18/22 Team Status: Active Member Role Status Dates Neo Raymond II MD Primary Care Provider Active Team Status: Inactive Member Role Status Sharif Raymond II MD Primary Care Provider Active TYLER Sevilla Attending Provider Active Team Status: Inactive Member Role Status Sharif Raymond II MD Primary Care Provider Active Start: January 06, 2023 End: January 06, 2023 TYLER Sevilla Attending Provider Active Start: January 06, 2023 End: January 06, 2023 Team Status: Inactive Member Role Status TYLER Ayala Attending Provider Active Start: January 11, 2023 End: January 11, 2023 Team Status: Inactive Member Role Status Dates Janes Jean MD Attending Provider Active Star t: February 10, 2023 End: February 10, 2023 Team Status: Inactive Member Role Status Dates Neo Raymond II MD Primary Care Provider Active Start: March 29, 2023 End: March 29, 2023 Zacarias Wylie MD Attending Provider Active Sta rt: March 29, 2023 End: March 29, 2023 Team Status: Inactive Member Role Status Dates Zacarias Wylie MD Attending Provider Active Sta rt: March 10, 2023 End: March 10, 2023 Team Status: Inactive Member Role Status Sharif Raymond II MD Primary Care Provider Active Start: May 03, 2023 End: May 03, 2023 Zacarias Wylie MD Attending Provider Active Sta rt: May 03, 2023 End: May 03, 2023 Team Status: Inactive Member Role Status Sharif Raymond II MD Primary Care Provider Active Start: May 05, 2023 End: May 05, 2023 TYLER Sevilla Attending Provider Active Start: May 05, 2023 End: May 05, 2023 Team Status: Inactive Member Role Status Sharif Raymond II MD Primary Care Provider Active Start: May 10, 2023 End: May 10, 2023 Zacarias Wylie MD Attending Provider Active Sta rt: May 10, 2023 End: May 10, 2023 Team Status: Inactive Member Role Status Sharif Raymond II MD Primary Care Provider Active Start: March 15, 2023 End: March 15, 2023 Zacarias Wylie MD Attending Provider Active Sta rt: March 15, 2023 End: March 15, 2023 Team Status: Active Member Role Status Sharif Raymond II MD Primary Care Provider Active Start: May 10, 2023 Zacarias Wylie MD Attending Provider, Other Provider Active Start: May 10, 2023 Team Status: Inactive Member Role Status Sharif Raymond II MD Primary Care Provider Active Start: May 18, 2023 End: May 18, 2023 Zacarias Wylie MD Attending Provider Active Sta rt: May 18, 2023 End: May 18, 2023 Team Status: Inactive Member Role Status Sharif Raymond II MD Primary Care Provider Active Start: June 07, 2023 End: June 07, 2023 Zacarias Wylie MD Attending Provider Active Sta rt: June 07, 2023 End: June 07, 2023 Team Status: Active Member Role Status Sharif Raymond II MD Primary Care Provider Active Start: June 07, 2023 Zacarias Wylie MD Attending Provider, Other Provider Active Start: June 07, 2023 Team Status: Inactive Member Role Status Sharif Raymond II MD Primary Care Provider Active Start: June 15, 2023 End: June 15, 2023 Zacarias Wylie MD Attending Provider Active Sta rt: June 15, 2023 End: June 15, 2023 Team Status: Inactive Member Role Status Sharif Raymond II MD Primary Care Provider Active Start: August 03, 2023 End: August 03, 2023 Zacarias Wylie MD Attending Provider Active Sta rt: August 03, 2023 End: August 03, 2023 Team Status: Inactive Member Role Status Sharif Raymond II MD Primary Care Provider Active Start: August 16, 2023 End: August 16, 2023 Zacarias Wylie MD Attending Provider Active Sta rt: August 16, 2023 End: August 16, 2023 Team Status: Active Member Role Status Sharif Raymond II MD Primary Care Provider Active Start: August 16, 2023 Zacarias Wylie MD Attending Provider, Other Provider Active Start: August 16, 2023 Team Status: Inactive Member Role Status Sharif Raymond II MD Primary Care Provider Active Start: September 05, 2023 End: September 05, 2023 Zacarias Wylie MD Attending Provider Active Sta rt: September 05, 2023 End: September 05, 2023 Team Status: Inactive Member Role Status Sharif Raymond II MD Primary Care Provider Active Start: October 03, 2023 End: October 03, 2023 Micaela Sanders APRN Attending Provider Active Start: October 03, 2023 End: October 03, 2023 Team Status: Inactive Member Role Status Sharif Raymond II MD Primary Care Provider Active Start: October 06, 2023 End: October 06, 2023 Janes Jean MD Attending Provider Active Star t: October 06, 2023 End: October 06, 2023 Team Status: Inactive Member Role Status Sharif Raymond II MD Primary Care Provider Active Start: October 16, 2023 End: October 16, 2023 Ghada Castro APRN Attending Provider Active Start: October 16, 2023 End: October 16, 2023 Team Status: Active Member Role Status Sharif Raymond II MD Primary Care Provider Active Start: October 10, 2023 Zacarias Wylie MD Attending Provider Active Sta rt: October 10, 2023 Team Status: Inactive Member Role Status Sharif Raymond II MD Primary Care Provider Active Start: October 17, 2023 End: October 17, 2023 Zacarias Wylie MD Attending Provider Active Sta rt: October 17, 2023 End: October 17, 2023 Team Status: Inactive Member Role Status Dates Neo Raymond II MD Primary Care Provider Active Start: October 31, 2023 End: October 31, 2023 Zacarias Wylie MD Attending Provider Active Sta rt: October 31, 2023 End: October 31, 2023 Team Status: Active Member Role Status Dates Neo Raymond II MD Primary Care Provider Active Start: October 17, 2023 Zacarias Wylie MD Attending Provider Active Sta rt: October 17, 2023 Team Status: Inactive Member Role Status Dates Neo Raymond II MD Primary Care Provider Active Start: November 10, 2023 End: November 10, 2023 Janes Jean MD Attending Provider Active Star t: November 10, 2023 End: November 10, 2023 [facility] Relationship Specialty Start Date End Date Neo Raymond II, MD [address] [facility] [address] [place] [address] PCP - General Internal Medicine 02/23/05 Phoebe Lee PA-C [address] [place] [address] Referring Pain Management 06/18/22 Source Comments (unrecognize d section and content) In the event this informatio n is protected by the Federal Confidentiality of Alcohol and Drug Abuse Patient Records regulations: The Federal rules restrict any use of the information to criminally investigate or prosecute any alcohol or drug abuse patient.[facility] the event this information is protected by the Federal Confidentiality of Alcohol and Drug Abuse Patient Records regulations: The Federal rules restrict any use of the information to criminally investigate or prosecute any alcohol or drug abuse patient.[facility] the event this information is protected by the Federal Confidentiality of Alcohol and Drug Abuse Patient Records regulations: The Federal rules restrict any use of the information to criminally investigate or prosecute any alcohol or drug abuse patient.[facility] the event this information is protected by the Federal Confidentiality of Alcohol and Drug Abuse Patient Records regulations: The Federal rules restrict any use of the information to criminally investigate or prosecute any alcohol or drug abuse patient.[facility] the event this information is protected by the Federal Confidentiality of Alcohol and Drug Abuse Patient Records regulations: The Federal rules restrict any use of the information to criminally investigate or prosecute any alcohol or drug abuse patient.[facility] the event this information is protected by the Federal Confidentiality of Alcohol and Drug Abuse Patient Records regulations: The Federal rules restrict any use of the information to criminally investigate or prosecute any alcohol or drug abuse patient.[facility] the event this information is protected by the Federal Confidentiality of Alcohol and Drug Abuse Patient Records regulations: The Federal rules restrict any use of the information to criminally investigate or prosecute any alcohol or drug abuse patient.[facility] the event this information is protected by the Federal Confidentiality of Alcohol and Drug Abuse Patient Records regulations: The Federal rules restrict any use of the information to criminally investigate or prosecute any alcohol or drug abuse patient.[facility] the event this information is protected by the Federal Confidentiality of Alcohol and Drug Abuse Patient Records regulations: The Federal rules restrict any use of the information to criminally investigate or prosecute any alcohol or drug abuse patient.[facility] Hospital[facility] the event this information is protected by the Federal Confidentiality of Alcohol and Drug Abuse Patient Records regulations: The Federal rules restrict any use of the information to criminally investigate or prosecute any alcohol or drug abuse patient.[facility] Hospital[facility] the event this information is protected by the Federal Confidentiality of Alcohol and Drug Abuse Patient Records regulations: The Federal rules restrict any use of the information to criminally investigate or prosecute any alcohol or drug abuse patient.[facility] Goals (unrecognized section and content) Goals may be documented in a n alternate section FOR RECORDS PERTAINING TO PATIENTS WHO ARE OR HAVE BEEN ENROLLED IN A CHEMICAL DEPENDENCY/SUBSTANCEABUSE PROGRAM, SOME INFORMATION MAY BE OMITTED. This clinical summary was aggregated from multiple sources. Caution should be exercised in using it in the provision of clinical care. This summary normalizes information from multiple sources, and as a consequence, information in this document may materially change the coding, format and clinical context of patient data. In addition, data may be omitted in some cases. CLINICAL DECISIONS SHOULD BE BASED ON THE PRIMARY CLINICAL RECORDS. [facility] [employer] [facility]. provides no warranty or guarantee of the accuracy or completeness of information in this document.
[2023-11-24] MEDS: LACTATED RINGER'S SOLUTION 1,000 ML 50 ML IV ×2 (11:23→15:16)
[2023-11-24] MEDS: CEFAZOLIN SODIUM 1 GM/50 ML D5W PREMIX IV (13:00)
--- NOTE | 2023-11-24 13:46 | PM.URSON ---
Urology Surgery Operative Note Operative Note Procedure Date: 11/24/23 Time Out Performed: yes Pre-op Diagnosis: Bladder tumor Post-op Diagnosis: same as pre-op Procedures performed: 1. Cystoscopy. 2. 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 On surveillance cystoscopy he had a recurrent bladder tumor about 3 cm in size. He now presents for cystoscopy and transurethral resection of his recurrent tumors. He has signed an informed consent after risks were explained. Detailed description of Procedure: The patient was brought to the operating room and placed on the operating room table in the supine position. SCDs were placed on the lower extremities and turned on and functioning during the entire case. Timeout was done by all parties in the room. We all agreed upon the patient's identification and the planned procedures for this patient. Genn. anesthesia was then administered. The patient was then repositioned into the modified dorsal lithotomy position. All pressure points were satisfactorily padded. Genitalia were sterilely prepped and draped in usual fashion. I started by passing a 26 Tong[place] Olympus resectoscope with a standard bipolar loop electrode per urethra and into the bladder. Anterior urethra was normal. Prostatic urethra revealed bilobar obstruction. Panendoscopy in the bladder revealed high-grade bladder damage with thick trabeculation and deep diverticuli diffusely. On the anterior wall towards the right side there was a patch of classic TCC appearing tumor approximately 3 cm in size. With an assistant professor surgical technology holding suprapubic pressure bringing the anterior surface of the bladder down towards the scope, I was then able to uniformly and deeply resected this tumor. Upon completion the resection bed was fully coagulated. The Ilich evacuator was used to get the pieces out from the bladder. These were sent for permanent sections. Upon completion, there was no evidence of any other tumors. There was no bleeding. The bladder was drained of its contents and the scope was then removed. I elected not to place a Johnson catheter. The anesthetic was then reversed. He was then transferred to a [facility] bed and wheeled to PACU in stable condition.
[2023-11-24] MEDS: DIPHENHYDRAMINE HCL 25 MG CAPSULE PO (15:10)
--- NOTE | 2023-11-24 15:17 | PC.NURSE ---
1505: notified of swelling to pts lip, in room to evaluate pt. order received to give 25mg PO Benadryl.
--- NOTE | 2023-11-24 16:13 | PC.NURSE ---
1600: pt has been up multiple times attempting to urinate but has been unsuccessful at this time. pt is drinking water and has IV fluids running.
[2023-11-24] MEDS: DEXAMETHASONE SOD PHOS 10 MG/ML VIAL IV (16:40)
--- NOTE | 2023-11-24 17:58 | PC.NURSE ---
1635: in pts room to evaluate pts lip swelling,pt states they are not having difficulty breathing. order received to administer 10mg IV Decadron to pt for lip swelling.
--- NOTE | 2023-11-24 17:59 | PC.NURSE ---
[id number]-comic book writer spoke with regarding pt status of being unable to urinate,order received to place a garcia catheter and have the pt follow up in the office next week to have the garcia removed by his staff.
--- NOTE | 2023-11-24 18:00 | PC.NURSE ---
1740-pt and educated on catheter care,both verbalize understanding on how to care for the catheter and to return to the ER if they catheter is no longer draining urine. pt also educated to monitor his lip swelling and if he has any additional swelling to return to the ER. per pt educated to take a 25mg Benadryl at approximately 2200 to help with the lip swelling.
--- NOTE | 2023-11-24 18:03 | PC.NURSE ---
1715: the mortgage or loan underwriter placed a 16 Fr garcia catheter per sterile technique. pt tolerated procedure well and has no complaints. urine is bloody with no clots noted at this time. drainage back below the waist and cath secure was applied.
== END 2023-11-24 17:45 | disposition home or self-care (01) ==
PROVIDERS: PCP Internal Medicine; Visit Provider Urology
PROC: (CPT 52235; principal; 2023-11-24 11:50)
DX: C67.3 Malignant neoplasm of anterior wall of bladder (principal); I48.91 Unspecified atrial fibrillation; Z85.51 Personal history of malignant neoplasm of bladder; N32.81 Overactive bladder; E03.9 Hypothyroidism, unspecified; I10 Essential (primary) hypertension; E78.5 Hyperlipidemia, unspecified; N40.0 Benign prostatic hyperplasia without lower urinary tract symptoms; Z79.899 Other long term (current) drug therapy; Z79.01 Long term (current) use of anticoagulants; Z79.890 Hormone replacement therapy
CPT/HCPCS: 52235; 36415; 51702; 88307; J0690; J1100; J2250; J2405; J2704; J3010

== ENCOUNTER 2024-01-12 07:21 | Outpatient (RCR) | payer MEDICARE, SELFPAY ==
[2024-01-12 10:50] VITALS: BP 103/67; PULSE 82; TEMP 36.6; O2SAT 95
[2024-01-12] MEDS: MITOMYCIN 40 MG in WATER FOR INJECTION,STERILE 20 ML 20 MG INTRAVESIC (11:13)
--- NOTE | 2024-01-12 13:43 | PC.NURSE ---
Pt here for Mitomycin bladder instillation. Chemo consent signed. #16 Fr. garcia placed with ease, per sterile technique. 300ml urine output obtained. Mitomycin instilled into bladder. Pt remained in bed turning every 15 min. After 1 hour dwell time, approx 50ml urine output obtained from bladder and garcia d/c'd. Tolerated procedure without incident. Pt d/c'd stable.
== END 2024-01-12 12:53 | disposition home or self-care (01) ==
LOC: INF 07:21
PROVIDERS: PCP Internal Medicine; Visit Provider Urology
DX: Z85.51 Personal history of malignant neoplasm of bladder (principal)
CPT/HCPCS: 51700; J9281

== ENCOUNTER 2024-02-09 10:41 | Outpatient (RCR) | payer MEDICARE, SELFPAY ==
[2024-02-09] MEDS: MITOMYCIN 40 MG in WATER FOR INJECTION,STERILE 20 ML 20 MG INTRAVESIC (11:10)
--- NOTE | 2024-02-09 11:31 | PC.NURSE ---
1100 Arrival ambulatory for mitomycin therapy. Alert oriented, procedure explained to patient and , verbalize understanding. 1105 # 16 salvadorean garcia catheter inserted under sterile technique, returned clear marlene urine. balloon inflated with 10ml sterile water, patient tolerated well. 1120 Mitomycing instilled via garcia catheter. Catheter clamped. instructed patient on repositioning schedule. verbalizes understanding. patient positioned on back for first 15 mins.
--- NOTE | 2024-02-09 11:35 | PC.NURSE ---
repostioned to right side. at bedside with patient. offers no complaints
--- NOTE | 2024-02-09 12:09 | PC.NURSE ---
1150 repositione to left side, tolerating without any issues.
--- NOTE | 2024-02-09 12:10 | PC.NURSE ---
1210 repositioned to back with bed in trendelenberg position due to patient being unable to lay prone.
--- NOTE | 2024-02-09 12:59 | PC.NURSE ---
1225 garcia connected to bedside drainage bag, allowed to drain for 10 mins, when going to sitting position complained of some light headedness bp check 98/50 p 90 light headedness passed. instructed patient and he should monitor blood pressure at home and report to PCP. had patient stand to be sure bladder was empty. returned to supine position, balloon on garcia deflated with 10 ml syringe, gacria dc'd. patient tolerated well. given wash cloth to clean self, dressed. released ambulatory
== END 2024-02-09 14:20 | disposition home or self-care (01) ==
LOC: INF 10:41
PROVIDERS: PCP Internal Medicine; Visit Provider Urology
DX: Z85.51 Personal history of malignant neoplasm of bladder (principal)
CPT/HCPCS: 51700; J9281

== ENCOUNTER 2024-03-08 07:34 | Outpatient (RCR) | payer MEDICARE, SELFPAY ==
[2024-03-08 11:15] VITALS: BP 121/81; PULSE 96; TEMP 36.4; O2SAT 98
[2024-03-08] MEDS: MITOMYCIN 40 MG in WATER FOR INJECTION,STERILE 20 ML 20 MG INTRAVESIC (11:29)
--- NOTE | 2024-03-08 13:09 | PC.NURSE ---
Pt here #3 of 3 Mitomycin bladder instillation. Consent forms signed by pt. #16 F garcia inserted into bladder per sterile technique. Approx 100ml urine drained into garcia bag. Mitomycin instilled into bladder w/o incident. Pt turned q 15 min x 1 hr. Approx 15 ml Mitomycin/urine drained from bladder post procedure. Garcia removed w/o incident. Pt tolerated procedure w/o c/o and d/c'd stable.
== END 2024-03-08 14:21 | disposition home or self-care (01) ==
LOC: INF 07:34
PROVIDERS: PCP Internal Medicine; Visit Provider Urology
DX: Z85.51 Personal history of malignant neoplasm of bladder (principal)
CPT/HCPCS: 51700; J9281